=== PATIENT | female | born 1945 | race Caucasian/White ===

== ENCOUNTER → 2018-01-07 | Outpatient (CLI) | payer OTHER, MEDICAID ==
--- NOTE | 2018-01-07 15:40 | RAD ---
History: Right knee pain Study: Right knee three views Findings: Three views of the right knee demonstrates rather severe osteopenia of the bony structures. There is significant narrowing of the medial joint compartment. There is a small joint effusion. No fracture or bony destructive process is identified Impression: . Osteoarthrosis of the medial joint compartment of the right knee. Small knee joint effusion. Reported By:
== END ==
LOC: RAD 10:37
PROVIDERS: ATTEND Internal Medicine
DX: M25.561 Pain in right knee (principal); M17.11 Unilateral primary osteoarthritis, right knee; M25.461 Effusion, right knee
CPT/HCPCS: 73560

== ENCOUNTER → 2018-02-28 | Outpatient (CLI) | payer OTHER, MEDICAID ==
--- NOTE | 2018-02-28 14:37 | CT ---
HISTORY: Acute left-sided weakness Study: CT head without contrast Comparison: None Technique: Axial noncontrast images with coronal and sagittal reformats. Dose reduction procedures we re used with mA/kv adjusted for body size Findings: The ventricles, cortical sulci, and other CSF spaces are enlarged consistent with generalized atrophy . There is a large area of encephalomalacia in the distribution of the left middle cerebral artery co nsistent with an old left MCA infarct. Old lacunar infarcts are present in the basal ganglia bilatera lly. There is no definite evidence for recent CVA, hemorrhage, mass lesion, or extra-axial fluid zak ection. There is complete opacification of the left maxillary sinus likely inflammatory in origin. If acute CVA or extension of the patient's old CVA is a strong clinical consideration MRI with diffusio n imaging is recommended for further evaluation. 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
== END | disposition home or self-care (01) ==
LOC: RAD 13:36
PROVIDERS: ATTEND Internal Medicine
DX: R53.1 Weakness (principal); R41.0 Disorientation, unspecified
CPT/HCPCS: 70450

== ENCOUNTER 2018-10-31 21:02 | Inpatient (IN) ==
--- NOTE | 2018-10-31 22:03 | DR.EXTPAIN ---
HPI Time seen Time Seen by Provider: 10/31/18 21:20 PCP Primary Care Physician: adolph HPI Comment HPI Comment: HISTORY BELOW. DEMENTIA WITH CHALLENGE OBTAINING HISTORY. FAMILY WITH PATIENT AND HELPFUL. Complaint/Symptoms Chief Complaint Doctor Comments: CHEST PAIN. Chief Complaint:: bethany from [facility] called pt choked today and had the abd thrust done she c/o pain in her ribs we did a rib series but she's still complaining of pain. pt denies any pain while palpating rt ribs pt said "that smarted a little" Nurses notes reviewed Nurses Notes Review: Yes Source History Provided: Patient, Family Member and [facility] Mode of arrival Mode of Arrival: Stretcher Timing Onset of Chief Complaint: 10/31/18 Context History of: Arthritis Associated signs and symptoms Associated Signs and Symptoms: Pain, Abdominal Pain and Other (CHEST PAIN.) PMH PMH Past Medical History: Yes Past Medical History: Anxiety, Arthritis, COPD, Coronary Artery Disease, Dementia, Depression, Diabetes, Dyslipidemia, GERD, Hypertension, Hypothyroidism and Seizures Past Surgical History: No (Unknown) Family History History of Family Medical Conditions: No Social History Does any household member use tobacco: No Alcohol Use: None Do you use any recreational Drugs:: No Lives Where: [facility] infectious screening In the last 2 months have you had wt loss of >10#?: NO Have you had fever, night sweats or hemotysis?: No Have you traveled outside the country in the last 6 months?: No Isolation: Standard ROS Review of Systems Constitutional: Weakness and Fatigue Eyes: Tearing; negative Eye Pain and Discharge ENTM: No Symptoms Reported Respiratoy: Short of Breath Cardiovascular: Chest Pain Gastrointestinal/Abdominal: Abdominal Pain Genitourinary: No Symptoms Reported Neurological: Tremors ([facility] PATIENT.) and Weakness Musculoskeletal: No Symptoms Reported, Chest wall and Rib(s) Integumentary: No Symptoms Reported Hematologic/Lymphatic: Easy Bleeding and Easy Bruising Endocrine: No Symptoms Reported Psychiatric: No Symptoms Reported All Other Systems: Reviewed and Negative Unable to Obtain Due To: Dementia PE Vital Signs Vitals: Temperature 97.6 F Pulse Rate [Left Brachial] 60 Pulse Rate 62 Respiratory Rate 20 Blood Pressure [Right Arm] 116/60 Blood Pressure [Left Arm] 126/57 Blood Pressure 114/55 O2 Sat by Pulse Oximetry 94 General Limitations: No Limitations General Appearance: Alert and In No Apparent Distress Head Head Exam: Normal Inspection Eyes Eye exam: Normal Appearance and PERRL; negative Scleral Icterus and Conjunctival Injection ENT ENT Exam: Normal Exam Neck Neck Exam: Normal Inspection Chest Chest Inspection: Normal Inspection Respiratory Respiratory Exam: Normal Lung Sounds Bilat Respiratory Exam: Bilateral: Rhonchi and Lower: Rhonchi Cardiovascular Cardiovascular Exam: Regular Rate and Normal Rhythm Abdominal Exam Abdominal Exam: Normal Bowel Sounds, Soft and Tenderness Abdominal Tenderness: LUQ, Epigastrium and Moderate Extremities Extremities Exam: Normal Inspection Back Back Exam: Normal Inspection Neurological Neurological Exam: Alert and Oriented X3 (DEMENTIA.); negative Motor Sensory Deficit Psychiatric Psychiatric Exam: Normal Affect Skin Skin Exam: Warm, Dry, Intact and Normal Color MDM Differential Diagnosis Differential Diagnosis: Contusion, Fracture, Sprain and Other (CHEST WALL PAIN, RIB PAIN, [place]) COURSE Treatment Treatment: SEE ORDERS. Consultation Consultation Comments: PATIENT ADMITTED TO DR. PERERA. Education/Counseling Education/Counseling: Patient and Family Educated On: Diagnosis ROR Labs Reviewed Laboratory Results Reviewed?: Yes Result Diagrams: 11/01/18 05:55 11/01/18 05:55 Laboratory: WBC 6.6 X10^3/uL (3.6-10.0) 11/01/18 05:55 RBC 4.19 X10^6/uL (3.5-5.4) 11/01/18 05:55 Hgb 12.1 g/dL (12.0-16.0) 11/01/18 05:55 Hct 36.4 % (36.0-47.0) 11/01/18 05:55 MCV 86.9 fL (80.0-100.0) 11/01/18 05:55 MCH 28.9 pg (27.0-34.0) 11/01/18 05:55 MCHC 33.2 g/dL (33.0-35.0) 11/01/18 05:55 RDW 15.0 % (11.6-16.5) 11/01/18 05:55 Plt Count 120 X10^3/uL (150.0-450.0) L 11/01/18 05:55 MPV 10.4 fL (7.4-11.0) 11/01/18 05:55 Neut % (Auto) 34.3 % (42.0-75.0) L 11/01/18 05:55 Lymph % (Auto) 52.4 % (21.0-51.0) H 11/01/18 05:55 Gaines % (Auto) 9.7 % (0.0-13.0) 11/01/18 05:55 Eos % (Auto) 3.1 % (0.9-2.9) H 11/01/18 05:55 Baso % (Auto) 0.5 % (0.2-1.0) 11/01/18 05:55 Neut # (Auto) 2.3 x10^3/uL (2.2-4.8) 11/01/18 05:55 Lymph # (Auto) 3.5 X10^3/uL (1.3-2.9) H 11/01/18 05:55 Gaines # (Auto) 0.6 x10^3/uL (0.3-0.8) 11/01/18 05:55 Eos # (Auto) 0.2 x10^3/uL (0.0-0.2) 11/01/18 05:55 Baso # (Auto) 0.0 X10^3/uL (0.0-0.1) 11/01/18 05:55 Absolute Nucleated RBC 0.1 /100WBC 11/01/18 05:55 Sodium 146 mmol/L (136-145) H 11/01/18 05:55 Corrected Sodium 147 mmol/L (136-145) H 11/01/18 05:55 Potassium 3.8 mmol/L (3.5-5.1) 11/01/18 05:55 Chloride 110 mmol/L (98-107) H 11/01/18 05:55 Carbon Dioxide 26.7 mmol/L (21-32) 11/01/18 05:55 BUN 35 mg/dL (7-18) H 11/01/18 05:55 Creatinine 0.91 mg/dL (0.55-1.02) 11/01/18 05:55 Est GFR (MDRD) Af Amer > 60 (>60) 11/01/18 05:55 Est GFR (MDRD) Non-Af > 60 (>60) 11/01/18 05:55 Glucose 129 mg/dL (65-99) H 11/01/18 05:55 POC Glucose (mg/dL) 130 mg/dL (65-99) H 11/01/18 05:35 Lactic Acid 2.7 mmol/L (0.4-2.0) H 10/31/18 23:36 Calcium 8.5 mg/dL (8.5-10.1) 11/01/18 05:55 Corrected Calcium 9.8 mg/dL (8.5-10.1) 11/01/18 05:55 Magnesium 1.8 mg/dL (1.7-2.9) 11/01/18 23:36 Total Bilirubin 0.50 mg/dL (0.2-1.0) 11/01/18 05:55 AST 78 Units/L (15-37) H 11/01/18 05:55 ALT 15 Units/L (12-78) 11/01/18 05:55 Alkaline Phosphatase 96 Units/L (46-116) 11/01/18 05:55 Total Protein 5.9 g/dL (6.4-8.2) L 11/01/18 05:55 Albumin 2.4 g/dL (3.4-5.0) L 11/01/18 05:55 Globulin 3.5 g/dL (2.5-4.5) 11/01/18 05:55 Albumin/Globulin Ratio 0.7 Ratio (1.1-2.1) L 11/01/18 05:55 XRAY XRAY Interpreted by: Radiologist XRAY Findings: REPORT DISCUSS WITH PATIENT AND FAMILY. EKG [place]: Normal Rhythm: NSR
--- NOTE | 2018-10-31 22:45 | CT ---
CT chest without contrast Indication: Chest pain after Heimlich Comparison: None Technique: CT images of the chest were obtained without contrast. Automatic exposure control was utilized. Findings: There is chronic compression fracture of the L1 vertebral body. Chronic healed fractures of the anterior right 6th, 7th, and 8th ribs. No acute fracture is identified. With nonobstructing bilateral renal stones. Evaluation of the mediastinum is limited without contrast. No significant pericardial thickening or pericardial effusion. No mediastinal hematoma is observed. The thoracic aorta is grossly unremarkable for technique. Scattered coronary artery calcifications are noted. There are patchy ground-glass opacities throughout both lungs, greatest within the lower lobes. No dense consolidation, pleural effusion, or pneumothorax. The major airways are patent. Impression: Patchy bilateral ground-glass opacities, greatest within the lower lobes, most compatible with multifocal pneumonitis or aspiration. Chronic right-sided rib fractures. No acute osseous abnormality. Reported By:
[2018-10-31] MEDS ORDERED: CLEOCIN 600 MG IV PREMIX 600 MG/50 ML BAG IV ONE (23:44)
[2018-10-31] MEDS ORDERED: CLEOCIN VIAL 600 MG ONE (23:49)
[2018-10-31] MEDS ORDERED: NS 1000 ML 1,000 ML ONE (23:50)
[2018-10-31] MEDS: NS 1000 ML 1,000 ML IV SCH (23:58)
[2018-11-01 00:08] LABS: BASOPHILS % (AUTO) 0.5 % (0.2-1.0); EOSINOPHILS # (AUTO) 0.2 x10^3/uL (0.0-0.2); EOSINOPHILS % (AUTO) 2.5 % (0.9-2.9); HEMOGLOBIN 13.2 g/dL (12.0-16.0); LYMPHOCYTES # (AUTO) 3.5 X10^3/uL (1.3-2.9); LYMPHOCYTES % (AUTO) 45.4 % (21.0-51.0); MEAN CORPUSCULAR HEMOGLOBIN 28.9 pg (27.0-34.0); MEAN CORPUSCULAR VOLUME 87.4 fL (80.0-100.0); MEAN PLATELET VOLUME 10.3 fL (7.4-11.0); MONOCYTES # (AUTO) 0.6 x10^3/uL (0.3-0.8); MONOCYTES % (AUTO) 7.3 % (0.0-13.0); NEUTROPHILS # (AUTO) 3.4 x10^3/uL (2.2-4.8); NEUTROPHILS % (AUTO) 44.3 % (42.0-75.0); PLATELET COUNT 142 X10^3/uL (150.0-450.0); RED BLOOD COUNT 4.58 X10^6/uL (3.5-5.4); WHITE BLOOD COUNT 7.7 X10^3/uL (3.6-10.0)
[2018-11-01 00:19] LABS: ALANINE AMINOTRANSFERASE 16 Units/L (12-78); ALBUMIN 2.7 g/dL (3.4-5.0); ALKALINE PHOSPHATASE 110 Units/L (46-116); ASPARTATE AMINO TRANSFERASE 83 Units/L (15-37); BLOOD UREA NITROGEN 32 mg/dL (7-18); CARBON DIOXIDE 26.8 mmol/L (21-32); CHLORIDE 107 mmol/L (98-107); COR NA(FOR HYPERGLY) 146 mmol/L (136-145); CREATININE 1.08 mg/dL (0.55-1.02); SODIUM 144 mmol/L (136-145); TOTAL PROTEIN 6.5 g/dL (6.4-8.2); eGFR NON BLACK RACES 53 (>60)
[2018-11-01 00:26] LABS: LACTIC ACID 2.7 mmol/L (0.4-2.0)
[2018-11-01] MEDS ORDERED: POTASSIUM CHL 40 MEQ/NS 0.45% 500 ML IV PRN (01:14)
[2018-11-01] MEDS ORDERED: MICRO K EXTEN CAP 10 MEQ PO PRN (01:14)
[2018-11-01] MEDS ORDERED: K-DUR TAB 20 MEQ PO PRN (01:14)
[2018-11-01] MEDS ORDERED: KLOR-CON PO PRN (01:14)
[2018-11-01] MEDS ORDERED: POTASSIUM CHL 60 MEQ/NS 0.45% 500 ML IV PRN (01:14)
[2018-11-01] MEDS ORDERED: K-RIDER 10 MEQ/NS 100 ML 10 MEQ/100 ML BAG IV PRN (01:14)
[2018-11-01] MEDS ORDERED: POTASSIUM CHLORIDE LIQ 20 MEQ UDC PO PRN (01:14)
[2018-11-01] MEDS ORDERED: MAGNESIUM SULFATE 1 GRAM/100 mL PREMIX 1 GM/100 ML BAG IV PRN (01:14)
[2018-11-01] MEDS ORDERED: PATIENT'S HOME MEDICATION (Oxycodone-Acetaminophen [Percocet] 1 TAB) PO PRN (01:29)
[2018-11-01] MEDS ORDERED: PATIENT'S HOME MEDICATION (Fluticasone-Salmeterol 1 INH) IN SCH (01:29)
[2018-11-01] MEDS: SINEMET (PLAIN) 25/250 MG PO SCH ×3 (05:29→21:01)
[2018-11-01] MEDS: CLEOCIN 600 MG IV PREMIX 600 MG/50 ML BAG IV SCH ×3 (05:29→21:01)
[2018-11-01] MEDS: NEURONTIN TAB 600 MG PO SCH ×3 (05:38→21:01)
[2018-11-01] MEDS: MERREM VIAL 500 MG in NS 100 ML IV + SPIKE MINIBAG* 100 ML IV SCH ×3 (05:41→21:36)
[2018-11-01 05:54] VITALS: BMI 31.9
[2018-11-01] MEDS: SYNTHROID 75 mcg TAB PO SCH (06:00)
[2018-11-01] MEDS ORDERED: INSULIN ASPART SUBCUT SCH ×2 (06:30)
[2018-11-01 06:58] LABS: ALANINE AMINOTRANSFERASE 15 Units/L (12-78); ALBUMIN 2.4 g/dL (3.4-5.0); ALKALINE PHOSPHATASE 96 Units/L (46-116); ASPARTATE AMINO TRANSFERASE 78 Units/L (15-37); BLOOD UREA NITROGEN 35 mg/dL (7-18); CALCIUM 8.5 mg/dL (8.5-10.1); CARBON DIOXIDE 26.7 mmol/L (21-32); CHLORIDE 110 mmol/L (98-107); COR CA(FOR HYPOALB) 9.8 mg/dL (8.5-10.1); COR NA(FOR HYPERGLY) 147 mmol/L (136-145); CREATININE 0.91 mg/dL (0.55-1.02); SODIUM 146 mmol/L (136-145); TOTAL PROTEIN 5.9 g/dL (6.4-8.2); eGFR NON BLACK RACES > 60 (>60)
[2018-11-01 07:21] LABS: BASOPHILS % (AUTO) 0.5 % (0.2-1.0); EOSINOPHILS # (AUTO) 0.2 x10^3/uL (0.0-0.2); EOSINOPHILS % (AUTO) 3.1 % (0.9-2.9); HEMATOCRIT 36.4 % (36.0-47.0); HEMOGLOBIN 12.1 g/dL (12.0-16.0); LYMPHOCYTES # (AUTO) 3.5 X10^3/uL (1.3-2.9); LYMPHOCYTES % (AUTO) 52.4 % (21.0-51.0); MEAN CORPUSCULAR HEMOGLOBIN 28.9 pg (27.0-34.0); MEAN CORPUSCULAR HGB CONC 33.2 g/dL (33.0-35.0); MEAN CORPUSCULAR VOLUME 86.9 fL (80.0-100.0); MEAN PLATELET VOLUME 10.4 fL (7.4-11.0); MONOCYTES # (AUTO) 0.6 x10^3/uL (0.3-0.8); MONOCYTES % (AUTO) 9.7 % (0.0-13.0); NEUTROPHILS # (AUTO) 2.3 x10^3/uL (2.2-4.8); NEUTROPHILS % (AUTO) 34.3 % (42.0-75.0); PLATELET COUNT 120 X10^3/uL (150.0-450.0); RED BLOOD COUNT 4.19 X10^6/uL (3.5-5.4); WHITE BLOOD COUNT 6.6 X10^3/uL (3.6-10.0)
[2018-11-01] MEDS ORDERED: ZOLOFT PO ONE (08:29)
[2018-11-01] MEDS ORDERED: DEPAKOTE D.R. TAB PO ONE ×2 (08:30→19:43)
[2018-11-01] MEDS ORDERED: PULMICORT NEB TX 0.5 MG NEB SCH (09:00)
[2018-11-01] MEDS ORDERED: PROVENTIL NEB TX 0.083% 2.5MG/ 3ML NEB SCH (09:00)
[2018-11-01] MEDS ORDERED: [UNRECOGNIZED DRUG - OTHER] PO SCH (09:00)
[2018-11-01] MEDS: DUONEB 0.5 MG/3 MG NEB SCH ×4 (09:09→21:43)
[2018-11-01] MEDS: PULMICORT NEB TX 0.5 MG NEB SCH ×2 (09:09→21:43)
[2018-11-01] MEDS: ZOLOFT PO SCH (09:16)
[2018-11-01] MEDS: KLONOPIN TAB 0.5 MG PO SCH ×2 (09:16→20:01)
[2018-11-01] MEDS: PriLOSEC PO SCH (09:16)
[2018-11-01] MEDS: DEPAKOTE D.R. TAB PO SCH ×2 (09:17→20:02)
[2018-11-01] MEDS: INDERAL TAB 10 MG PO SCH ×2 (09:17→20:03)
[2018-11-01] MEDS: DETROL LA 2 MG CAP EXT REL PO SCH (09:17)
[2018-11-01] MEDS: MOBIC TAB 15 MG PO SCH (09:17)
[2018-11-01] MEDS ORDERED: BUTT CREAM (COMPOUND) TOP PRN (10:40)
[2018-11-01] MEDS: HumaLOG SC SCH ×2 (12:55→16:53)
[2018-11-01] MEDS: PATIENT'S HOME MEDICATION (Memantine [Namenda Xr] 28 MG) PO SCH (14:27)
[2018-11-01] MEDS: NS 1000 ML 1,000 ML IV SCH ×2 (14:28→21:36)
[2018-11-01] MEDS: ZOCOR TAB 40 MG PO SCH (20:01)
[2018-11-01] MEDS: ARICEPT TAB 10 MG PO SCH (20:01)
[2018-11-01] MEDS: XALATAN OP SCH (20:02)
[2018-11-01] MEDS: TRICOR TAB 145 MG PO SCH (20:02)
[2018-11-01] MEDS ORDERED: NS 1000 ML 1,000 ML ONE (21:34)
[2018-11-02] MEDS: NS 1000 ML 1,000 ML IV SCH ×4 (01:10→18:07)
[2018-11-02] MEDS: CLEOCIN 600 MG IV PREMIX 600 MG/50 ML BAG IV SCH ×3 (05:03→21:16)
[2018-11-02] MEDS: HumaLOG SC SCH ×3 (05:43→18:06)
[2018-11-02] MEDS: SINEMET (PLAIN) 25/250 MG PO SCH ×3 (05:43→21:19)
[2018-11-02] MEDS: NEURONTIN TAB 600 MG PO SCH ×3 (05:43→22:15)
[2018-11-02] MEDS: MERREM VIAL 500 MG in NS 100 ML IV + SPIKE MINIBAG* 100 ML IV SCH ×3 (05:43→21:14)
[2018-11-02] MEDS: SYNTHROID 75 mcg TAB PO SCH (06:07)
[2018-11-02 06:08] LABS: BASOPHILS % (AUTO) 0.7 % (0.2-1.0); EOSINOPHILS # (AUTO) 0.2 x10^3/uL (0.0-0.2); EOSINOPHILS % (AUTO) 4.1 % (0.9-2.9); HEMATOCRIT 36.2 % (36.0-47.0); HEMOGLOBIN 11.9 g/dL (12.0-16.0); LYMPHOCYTES # (AUTO) 2.3 X10^3/uL (1.3-2.9); LYMPHOCYTES % (AUTO) 44.3 % (21.0-51.0); MEAN CORPUSCULAR HEMOGLOBIN 28.7 pg (27.0-34.0); MEAN CORPUSCULAR HGB CONC 32.9 g/dL (33.0-35.0); MEAN CORPUSCULAR VOLUME 87.3 fL (80.0-100.0); MEAN PLATELET VOLUME 10.3 fL (7.4-11.0); MONOCYTES # (AUTO) 0.6 x10^3/uL (0.3-0.8); MONOCYTES % (AUTO) 10.7 % (0.0-13.0); NEUTROPHILS # (AUTO) 2.1 x10^3/uL (2.2-4.8); NEUTROPHILS % (AUTO) 40.2 % (42.0-75.0); PLATELET COUNT 114 X10^3/uL (150.0-450.0); RED BLOOD COUNT 4.14 X10^6/uL (3.5-5.4); RED CELL DISTRIBUTION WIDTH 15.5 % (11.6-16.5); WHITE BLOOD COUNT 5.2 X10^3/uL (3.6-10.0)
[2018-11-02 06:43] LABS: ALANINE AMINOTRANSFERASE 11 Units/L (12-78); ALBUMIN 2.2 g/dL (3.4-5.0); ALKALINE PHOSPHATASE 92 Units/L (46-116); ASPARTATE AMINO TRANSFERASE 67 Units/L (15-37); BLOOD UREA NITROGEN 24 mg/dL (7-18); CALCIUM 8.1 mg/dL (8.5-10.1); CARBON DIOXIDE 27.4 mmol/L (21-32); CHLORIDE 109 mmol/L (98-107); COR CA(FOR HYPOALB) 9.5 mg/dL (8.5-10.1); COR NA(FOR HYPERGLY) 143 mmol/L (136-145); CREATININE 0.74 mg/dL (0.55-1.02); SODIUM 143 mmol/L (136-145); TOTAL PROTEIN 5.6 g/dL (6.4-8.2); eGFR NON BLACK RACES > 60 (>60)
[2018-11-02] MEDS ORDERED: ZOLOFT PO ONE (08:04)
[2018-11-02] MEDS ORDERED: DEPAKOTE D.R. TAB PO ONE ×2 (08:05→21:01)
[2018-11-02] MEDS: DETROL LA 2 MG CAP EXT REL PO SCH (08:14)
[2018-11-02] MEDS: PriLOSEC PO SCH (08:14)
[2018-11-02] MEDS: ZOLOFT PO SCH (08:14)
[2018-11-02] MEDS: DEPAKOTE D.R. TAB PO SCH ×2 (08:14→21:18)
[2018-11-02] MEDS: MOBIC TAB 15 MG PO SCH (08:14)
[2018-11-02] MEDS: INDERAL TAB 10 MG PO SCH ×2 (08:15→21:23)
[2018-11-02] MEDS: KLONOPIN TAB 0.5 MG PO SCH ×2 (08:15→21:19)
[2018-11-02] MEDS: PATIENT'S HOME MEDICATION (Memantine [Namenda Xr] 28 MG) PO SCH (08:18)
[2018-11-02] MEDS: ROBITUSSIN DM PO PRN (08:24)
[2018-11-02] MEDS: DUONEB 0.5 MG/3 MG NEB SCH ×4 (09:34→21:30)
[2018-11-02] MEDS: PULMICORT NEB TX 0.5 MG NEB SCH ×2 (09:34→21:29)
[2018-11-02] MEDS ORDERED: NS 1000 ML 1,000 ML ONE (13:49)
[2018-11-02] MEDS: XALATAN OP SCH (21:16)
[2018-11-02] MEDS: ZOCOR TAB 40 MG PO SCH (21:19)
[2018-11-02] MEDS: TRICOR TAB 145 MG PO SCH (21:19)
[2018-11-02] MEDS: ARICEPT TAB 10 MG PO SCH (21:22)
[2018-11-03] MEDS: MERREM VIAL 500 MG in NS 100 ML IV + SPIKE MINIBAG* 100 ML IV SCH ×3 (05:00→22:00)
--- NOTE | 2018-11-03 05:33 | RAD ---
Examination: AP chest History: Cough Comparison 10/31/2018 Findings: Continued normal heart size. The pulmonary vasculature remains prominent with slight interstitial increase. No focal consolidation, airspace disease or pleural fluid. Impression: No definite pneumonia. Mild pulmonary vascular congestion, accentuated by nonstandard technical factors. Basal pneumonia, suggested on recent CT examination, not definitely identified. Reported By:
[2018-11-03 05:46] LABS: BASOPHILS % (AUTO) 0.8 % (0.2-1.0); EOSINOPHILS # (AUTO) 0.2 x10^3/uL (0.0-0.2); EOSINOPHILS % (AUTO) 4.4 % (0.9-2.9); HEMATOCRIT 36.2 % (36.0-47.0); LYMPHOCYTES # (AUTO) 2.3 X10^3/uL (1.3-2.9); LYMPHOCYTES % (AUTO) 53.9 % (21.0-51.0); MEAN CORPUSCULAR HEMOGLOBIN 28.8 pg (27.0-34.0); MEAN CORPUSCULAR HGB CONC 33.1 g/dL (33.0-35.0); MEAN CORPUSCULAR VOLUME 86.8 fL (80.0-100.0); MEAN PLATELET VOLUME 10.1 fL (7.4-11.0); MONOCYTES # (AUTO) 0.4 x10^3/uL (0.3-0.8); MONOCYTES % (AUTO) 9.7 % (0.0-13.0); NEUTROPHILS # (AUTO) 1.3 x10^3/uL (2.2-4.8); NEUTROPHILS % (AUTO) 31.2 % (42.0-75.0); PLATELET COUNT 116 X10^3/uL (150.0-450.0); RED BLOOD COUNT 4.16 X10^6/uL (3.5-5.4); RED CELL DISTRIBUTION WIDTH 15.1 % (11.6-16.5); WHITE BLOOD COUNT 4.3 X10^3/uL (3.6-10.0)
[2018-11-03] MEDS: CLEOCIN 600 MG IV PREMIX 600 MG/50 ML BAG IV SCH ×3 (05:57→21:13)
[2018-11-03] MEDS: SINEMET (PLAIN) 25/250 MG PO SCH ×3 (05:58→21:13)
[2018-11-03] MEDS: NEURONTIN TAB 600 MG PO SCH ×3 (05:58→21:13)
[2018-11-03] MEDS: HumaLOG SC SCH ×3 (05:59→16:35)
[2018-11-03 06:13] LABS: ALANINE AMINOTRANSFERASE 12 Units/L (12-78); ALBUMIN 2.3 g/dL (3.4-5.0); ALKALINE PHOSPHATASE 88 Units/L (46-116); ASPARTATE AMINO TRANSFERASE 64 Units/L (15-37); BLOOD UREA NITROGEN 16 mg/dL (7-18); CALCIUM 8.5 mg/dL (8.5-10.1); CARBON DIOXIDE 27.1 mmol/L (21-32); CHLORIDE 112 mmol/L (98-107); COR CA(FOR HYPOALB) 9.9 mg/dL (8.5-10.1); COR NA(FOR HYPERGLY) 147 mmol/L (136-145); SODIUM 146 mmol/L (136-145); TOTAL PROTEIN 5.7 g/dL (6.4-8.2); eGFR NON BLACK RACES > 60 (>60)
[2018-11-03] MEDS ORDERED: ZOLOFT PO ONE (08:24)
[2018-11-03] MEDS ORDERED: DEPAKOTE D.R. TAB PO ONE ×2 (08:24→20:01)
[2018-11-03] MEDS: MOBIC TAB 15 MG PO SCH (08:27)
[2018-11-03] MEDS: ROBITUSSIN DM PO PRN (08:27)
[2018-11-03] MEDS: PriLOSEC PO SCH (08:27)
[2018-11-03] MEDS: DETROL LA 2 MG CAP EXT REL PO SCH (08:28)
[2018-11-03] MEDS: KLONOPIN TAB 0.5 MG PO SCH ×2 (08:28→20:38)
[2018-11-03] MEDS: NS 1000 ML 1,000 ML IV SCH ×2 (08:29→23:12)
[2018-11-03] MEDS: DEPAKOTE D.R. TAB PO SCH ×2 (08:29→20:49)
[2018-11-03] MEDS: SYNTHROID 75 mcg TAB PO SCH (08:29)
[2018-11-03] MEDS: ZOLOFT PO SCH (08:29)
[2018-11-03] MEDS: PATIENT'S HOME MEDICATION (Memantine [Namenda Xr] 28 MG) PO SCH (08:30)
[2018-11-03] MEDS: INDERAL TAB 10 MG PO SCH ×2 (08:30→20:49)
[2018-11-03] MEDS: DUONEB 0.5 MG/3 MG NEB SCH ×4 (08:58→21:06)
[2018-11-03] MEDS: PULMICORT NEB TX 0.5 MG NEB SCH ×2 (08:59→21:06)
[2018-11-03] MEDS ORDERED: NS 1000 ML 1,000 ML ONE (14:45)
[2018-11-03] MEDS: TRICOR TAB 145 MG PO SCH (20:38)
[2018-11-03] MEDS: ZOCOR TAB 40 MG PO SCH (20:39)
[2018-11-03] MEDS: XALATAN OP SCH (20:49)
[2018-11-03] MEDS: ARICEPT TAB 10 MG PO SCH (20:55)
[2018-11-04] MEDS: MERREM VIAL 500 MG in NS 100 ML IV + SPIKE MINIBAG* 100 ML IV SCH (05:03)
[2018-11-04] MEDS: SINEMET (PLAIN) 25/250 MG PO SCH (05:04)
[2018-11-04] MEDS: NEURONTIN TAB 600 MG PO SCH (05:04)
[2018-11-04 05:21] LABS: BASOPHILS % (AUTO) 0.7 % (0.2-1.0); EOSINOPHILS # (AUTO) 0.2 x10^3/uL (0.0-0.2); EOSINOPHILS % (AUTO) 4.6 % (0.9-2.9); HEMATOCRIT 36.9 % (36.0-47.0); HEMOGLOBIN 12.1 g/dL (12.0-16.0); LYMPHOCYTES # (AUTO) 2.2 X10^3/uL (1.3-2.9); LYMPHOCYTES % (AUTO) 51.4 % (21.0-51.0); MEAN CORPUSCULAR HEMOGLOBIN 28.6 pg (27.0-34.0); MEAN CORPUSCULAR HGB CONC 32.8 g/dL (33.0-35.0); MEAN CORPUSCULAR VOLUME 87.3 fL (80.0-100.0); MEAN PLATELET VOLUME 10.2 fL (7.4-11.0); MONOCYTES # (AUTO) 0.5 x10^3/uL (0.3-0.8); MONOCYTES % (AUTO) 11.5 % (0.0-13.0); NEUTROPHILS # (AUTO) 1.4 x10^3/uL (2.2-4.8); NEUTROPHILS % (AUTO) 31.8 % (42.0-75.0); PLATELET COUNT 121 X10^3/uL (150.0-450.0); RED BLOOD COUNT 4.23 X10^6/uL (3.5-5.4); RED CELL DISTRIBUTION WIDTH 15.1 % (11.6-16.5); WHITE BLOOD COUNT 4.3 X10^3/uL (3.6-10.0)
[2018-11-04] MEDS: HumaLOG SC SCH (05:30)
[2018-11-04] MEDS: CLEOCIN 600 MG IV PREMIX 600 MG/50 ML BAG IV SCH (05:31)
[2018-11-04 05:52] LABS: ALANINE AMINOTRANSFERASE 13 Units/L (12-78); ALBUMIN 2.3 g/dL (3.4-5.0); ALKALINE PHOSPHATASE 88 Units/L (46-116); ASPARTATE AMINO TRANSFERASE 62 Units/L (15-37); BLOOD UREA NITROGEN 14 mg/dL (7-18); CALCIUM 8.4 mg/dL (8.5-10.1); CARBON DIOXIDE 26.6 mmol/L (21-32); CHLORIDE 111 mmol/L (98-107); COR CA(FOR HYPOALB) 9.8 mg/dL (8.5-10.1); COR NA(FOR HYPERGLY) 147 mmol/L (136-145); CREATININE 0.69 mg/dL (0.55-1.02); SODIUM 146 mmol/L (136-145); TOTAL PROTEIN 5.6 g/dL (6.4-8.2); eGFR NON BLACK RACES > 60 (>60)
[2018-11-04] MEDS: SYNTHROID 75 mcg TAB PO SCH (06:04)
--- NOTE | 2018-11-04 07:29 | RAD ---
HISTORY: Shortness of breath Study: Chest AP portable Comparison: 11/03/2018 Findings: The heart is normal in size. No congestive heart failure is noted. No alveolar infiltrates or pleural effusions are identified. Mild interstitial lung changes remain in the right lung base. The bony thorax is unremarkable. IMPRESSION: No acute infiltrates Mild interstitial lung changes remain Reported By:
[2018-11-04] MEDS ORDERED: DEPAKOTE D.R. TAB PO ONE (08:27)
[2018-11-04] MEDS ORDERED: ZOLOFT PO ONE (08:27)
--- NOTE | 2018-11-04 08:46 | DR.H&P ---
H&P - History & Physical for Day of: H&P Date: 11/01/18 - Chief Complaint Chief Complaint: chest pain, sob, rib pain - History of Present Illness History of Present Illness: [facility] 73 [facility] She presented to the ER with complaints of chest pain and rib pain. skilled nursing staff reported that patient was choking today and they had to perform an abdominal thrust. Afterwards, patient reported rib pain. She also reports shortness of breath. Patient has a past medical history of Anxiety, Arthritis, COPD, Coronary Artery Disease, Dementia, Depression, Diabetes, Dyslipidemia, GERD, Hypertension, Hypothyroidism and Seizures. On arrival, vitals were 98.2-70-20-96%-114/55. Labs were obtained. Abnormal lab values include the following: PLT COUNT 142, BUN 32, CREATININE 1.08, GLUCOSE 201, LACTIC ACID 2.7, AST 83, ALBUMIN 2.7. AN OUTPATIENT CHEST XRAY WAS OBTAINED AND REVEALED: Cortical regularity and buckling involving bilateral posterior 7th ribs needs clinical correlation for point tenderness to exclude nondisplaced acute fractures. A CHEST CT WAS OBTAINED AND REVEALED: Patchy bilateral ground- glass opacities, greatest within the lower lobes, most compatible with multifocal pneumonitis or aspiration. Chronic right-sided rib fractures. No acute osseous abnormality. She was admitted for further evaluation and treatment of aspiration pneumonia. She was given clocin 600mg iv x 1 dose in the ER. She was started on meropenem 500mg iv q8h and clindamycin 600mg iv q8h as well as normal saline at 50ml/hr, respiratory treatments, and supplemental oxygen. We plan to follow up with AM labs and chest xray and continue to monitor. - Past Medical History Past Medical History: Coronary Artery Disease, Hypertension, Dyslipidemia, Diabetes, Dementia, Depression, Anxiety, Hypothyroidism, Seizures, COPD, GERD, Arthritis - Past Surgical History Surgical History: Unknown - Social History Does patient currently use any type of tobacco product: No Have you used tobacco products in the last 12 months: No Type of Tobacco Use: None Does any household member use tobacco: No Alcohol Use: None Drug Use: None - Medications Home Medications: No Known Drug Allergies Allergy (Verified 03/05/18 23:45) CONTINUE taking the following medications carbidopa-levodopa [Sinemet] 1 tab PO TID 10/31/18 [History] clonazepam [Klonopin] 0.5 mg PO BID 10/31/18 [History] divalproex [Depakote] 500 mg PO BID 10/31/18 [History] donepezil [Aricept] 10 mg PO QHS 10/31/18 [History] fenofibrate nanocrystallized 145 mg PO HS 10/31/18 [History] fluticasone-salmeterol [Advair Diskus] 1 inh INHALATION Q12H 10/31/18 [History] gabapentin [Neurontin] 600 mg PO TID 10/31/18 [History] insulin aspart U-100 [Novolog U-100 Insulin aspart] 7 unit SUBCUT ACHS 10/31/18 [History] latanoprost 1 drp OPHTHALMIC (EYE) QDAY 10/31/18 [History] levothyroxine [Synthroid] 75 mcg PO QDAY 10/31/18 [History] meloxicam [Mobic] 7.5 mg PO QDAY 10/31/18 [History] memantine [Namenda XR] 28 mg PO QDAY 10/31/18 [History] iv-njsyygs-efz-iron fm-FA-vitK [Multi For Her] 1 tab PO QDAY 10/31/18 [History] omeprazole magnesium [Prilosec OTC] 20 mg PO QDAY 10/31/18 [History] oxycodone-acetaminophen [Percocet] 1 tab PO Q6H PRN 10/31/18 [History] propranolol 10 mg PO BID 10/31/18 [History] quetiapine [Seroquel] 25 mg PO HS 10/31/18 [History] sertraline [Zoloft] 100 mg PO QDAY 10/31/18 [History] simvastatin 40 mg PO QHS 10/31/18 [History] tolterodine [Detrol LA] 2 mg PO QDAY 10/31/18 [History] - Review of Systems Constitutional: No Symptoms Reported Eyes: No Symptoms Reported ENT: No Symptoms Reported Respiratory: Shortness of Breath Cardiovascular: Chest Pain Gastrointestinal: No Symptoms Reported Genitourinary: No Symptoms Reported Musculoskeletal: Other (rib pain) Skin: No Symptoms Reported Neurological: No Symptoms Reported - Physical Exam Vital Signs: Temperature 97.8 F Pulse Rate [Left Brachial] 52 Pulse Rate 79 Respiratory Rate 20 Blood Pressure [Right Arm] 130/58 Blood Pressure [Left Arm] 132/58 Blood Pressure 114/55 O2 Sat by Pulse Oximetry 96 Oriented: Person Eyes: Normal Ear: Normal Nose: Normal Throat: Normal Respiratory: Diminished Throughout Cardiovascular: Normal. negative: S3, S4, Murmur, Edema : Normal Auscultation: Bowel Sounds: Normal Palpation: Normal Tenderness: Normal Skin: Normal Musculoskeletal: Right (rib pain) - Allergies Allergies/Adverse Reactions: Allergies Allergy/AdvReac Type Severity Reaction Status Date / Time No Known Drug Allergies Allergy Verified 03/05/18 23:45
[2018-11-04] MEDS: DEPAKOTE D.R. TAB PO SCH (08:54)
[2018-11-04] MEDS: INDERAL TAB 10 MG PO SCH (08:54)
[2018-11-04] MEDS: KLONOPIN TAB 0.5 MG PO SCH (08:54)
[2018-11-04] MEDS: MOBIC TAB 15 MG PO SCH (08:54)
[2018-11-04] MEDS: PriLOSEC PO SCH (08:55)
[2018-11-04] MEDS: ZOLOFT PO SCH (08:55)
[2018-11-04] MEDS: DETROL LA 2 MG CAP EXT REL PO SCH (08:55)
[2018-11-04] MEDS: PULMICORT NEB TX 0.5 MG NEB SCH (09:23)
[2018-11-04] MEDS: DUONEB 0.5 MG/3 MG NEB SCH (09:23)
[2018-11-04] MEDS: PATIENT'S HOME MEDICATION (Memantine [Namenda Xr] 28 MG) PO SCH (09:45)
[2018-11-04 10:04] VITALS: BP 131/58
== END 2018-11-04 11:00 | DRG 178 ==
LOC: ER 21:03 → MED/SURG 11-01 00:52
PROVIDERS: ADMIT Internal Medicine; ATTEND Internal Medicine
DX: M62.81 Muscle weakness (generalized); J44.9 Chronic obstructive pulmonary disease, unspecified; F32.89 Other specified depressive episodes; M13.89 Other specified arthritis, multiple sites; R13.12 Dysphagia, oropharyngeal phase; I10 Essential (primary) hypertension; F41.8 Other specified anxiety disorders; R07.89 Other chest pain; I25.10 Atherosclerotic heart disease of native coronary artery without angina pectoris; G40.89 Other seizures; E11.65 Type 2 diabetes mellitus with hyperglycemia; E78.2 Mixed hyperlipidemia; K21.9 Gastro-esophageal reflux disease without esophagitis; R06.02 Shortness of breath; J69.0 Pneumonitis due to inhalation of food and vomit; E03.8 Other specified hypothyroidism
CPT/HCPCS: 36415; 71010; 71045; 71111; 71250; 80053; 83605; 83735; 85025; 87040; 92610; 94640; 94760; 96365; 96374; 97163; 97166; 99282; 99284; A4222; J1817; J2185; J7030; J7050; J7620; J7626; S0077

== ENCOUNTER 2019-03-14 14:29 | Inpatient (IN) ==
[2019-03-14 15:12] LABS: ALANINE AMINOTRANSFERASE 11 Units/L (12-78); ALBUMIN 2.7 g/dL (3.4-5.0); ALKALINE PHOSPHATASE 109 Units/L (46-116); ASPARTATE AMINO TRANSFERASE 57 Units/L (15-37); BLOOD UREA NITROGEN 17 mg/dL (7-18); CALCIUM 9.1 mg/dL (8.5-10.1); CHLORIDE 106 mmol/L (98-107); COR CA(FOR HYPOALB) 10.1 mg/dL (8.5-10.1); COR NA(FOR HYPERGLY) 146 mmol/L (136-145); CREATININE 0.85 mg/dL (0.55-1.02); SODIUM 145 mmol/L (136-145); TOTAL PROTEIN 7.4 g/dL (6.4-8.2); eGFR NON BLACK RACES > 60 (>60)
[2019-03-14 15:42] LABS: BASOPHILS % (AUTO) 0.7 % (0.2-1.0); EOSINOPHILS # (AUTO) 0.2 x10^3/uL (0.0-0.2); HEMATOCRIT 42.5 % (36.0-47.0); HEMOGLOBIN 13.6 g/dL (12.0-16.0); LYMPHOCYTES # (AUTO) 2.3 X10^3/uL (1.3-2.9); LYMPHOCYTES % (AUTO) 51.5 % (21.0-51.0); MEAN CORPUSCULAR HEMOGLOBIN 28.3 pg (27.0-34.0); MEAN CORPUSCULAR VOLUME 88.4 fL (80.0-100.0); MEAN PLATELET VOLUME 9.3 fL (7.4-11.0); MONOCYTES # (AUTO) 0.5 x10^3/uL (0.3-0.8); MONOCYTES % (AUTO) 10.3 % (0.0-13.0); NEUTROPHILS # (AUTO) 1.5 x10^3/uL (2.2-4.8); NEUTROPHILS % (AUTO) 33.5 % (42.0-75.0); PLATELET COUNT 125 X10^3/uL (150.0-450.0); RED BLOOD COUNT 4.81 X10^6/uL (3.5-5.4); RED CELL DISTRIBUTION WIDTH 16.4 % (11.6-16.5); WHITE BLOOD COUNT 4.5 X10^3/uL (3.6-10.0)
--- NOTE | 2019-03-14 16:52 | DR.GENAD ---
HPI Time Seen Time Seen by Provider: 03/14/19 14:48 PCP Primary Care Physician: TREVER Complaint/Symptoms Chief Complaint Doctors Comments: Patient referred to the ED for evaluation by Dr Angel of a rectocele or fistula per his request. Patient is alert in no distress Chief Complaint:: TON STAFF STATE THAT PT. HAS A RECTOCELE OR FISTULA AND THAT DR. MALDONADO WANTED HER SENT TO THE ER FOR EVALUATION. STAFF STATES IT HAS BEEN THERE ABOUT 1 WEEK. Source History Provided: [facility] Mode of Arrival Mode of Arrival: Stretcher Timing Onset of Chief Complaint: 03/07/19 PMH PMH Past Medical History: Yes Past Medical History: Anxiety, Arthritis, COPD, Coronary Artery Disease, D ementia, Depression, Diabetes, Dyslipidemia, GERD, Hypertension, Hypothyroidism and Seizures Past Surgical History: Yes Surgical History: Unknown Family History History of Family Medical Conditions: No Social History Does any household member use tobacco: No Alcohol Use: None Do you use any recreational Drugs:: No Lives Where: [facility] infectious screening In the last 2 months have you had wt loss of >10#?: NO Have you had fever, night sweats or hemotysis?: No Have you traveled outside the country in the last 6 months?: No Isolation: Standard ROS Review of Systems Constitutional: No Symptoms Reported Eyes: No Symptoms Reported ENTM: No Symptoms Reported Respiratoy: No Symptoms Reported Cardiovascular: No Symptoms Reported Gastrointestinal/Abdominal: No Symptoms Reported Genitourinary: No Symptoms Reported Neurological: No Symptoms Reported Musculoskeletal: No Symptoms Reported Integumentary: No Symptoms Reported and See HPI Endocrine: No Symptoms Reported All Other Systems: Reviewed and Negative PE Vital Signs Vitals: Temperature 98.0 F Pulse Rate [Right Brachial] 63 Pulse Rate 64 Respiratory Rate 20 Blood Pressure [Right Arm] 124/56 Blood Pressure [Left Arm] 132/58 Blood Pressure 128/54 O2 Sat by Pulse Oximetry 97 General Limitations: No Limitations and Altered Mental Status General Appearance: Alert and In No Apparent Distress Head Head Exam: Normal Inspection, Atraumatic and Normocephalic Eyes Eye exam: Normal Appearance and PERRL ENT ENT Exam: Normal Exam and Normal Oropharynx External Ear Exam: Normal External Inspection TM/Canal Exam: Bilateral: Normal Nose Exam: Normal Nose Exam Mouth Exam: Normal Inspection Throat Exam: Normal Inspection Neck Neck Exam: Normal Inspection Chest Chest Inspection: Normal Inspection Respiratory Respiratory Exam: Normal Lung Sounds Bilat Respiratory Exam: Bilateral: Clear to Auscultation Cardiovascular Cardiovascular Exam: Regular Rate and Normal Rhythm Abdominal Exam Abdominal Exam: Normal Inspection Extremities Extremities Exam: Normal Inspection Back Back Exam: Normal Inspection and Full ROM Neurologic Neurological Exam: Alert, Oriented X3 and CN II-XII Intact Psychiatric Psychiatric Exam: Normal Affect and Normal Mood Skin Skin Exam: Warm, Dry and Intact MDM Differential Diagnosis Differential Diagnosis: fistula, fistula COURSE Treatment Treatment: Patient examined by Dr. Weathers in the ED; recommended admission for further evaluation and treatment Consultation Called: 19:20 Consultation Comments: Dr. Meléndez agreed to admits for further evaluation. ROR Labs Reviewed Laboratory Results Reviewed?: Yes Result Diagrams: 03/17/19 05:10 03/17/19 05:10 Laboratory: 03/15/19 16:58 Urine,Catheterized Urine Culture - Final WBC 7.1 X10^3/uL (3.6-10.0) 03/17/19 05:10 RBC 4.46 X10^6/uL (3.5-5.4) 03/17/19 05:10 Hgb 12.7 g/dL (12.0-16.0) 03/17/19 05:10 Hct 38.8 % (36.0-47.0) 03/17/19 05:10 MCV 87.0 fL (80.0-100.0) 03/17/19 05:10 MCH 28.6 pg (27.0-34.0) 03/17/19 05:10 MCHC 32.9 g/dL (33.0-35.0) L 03/17/19 05:10 RDW 16.0 % (11.6-16.5) 03/17/19 05:10 Plt Count 153 X10^3/uL (150.0-450.0) 03/17/19 05:10 MPV 9.7 fL (7.4-11.0) 03/17/19 05:10 Neut % (Auto) 60.8 % (42.0-75.0) 03/17/19 05:10 Lymph % (Auto) 27.5 % (21.0-51.0) 03/17/19 05:10 [place] % (Auto) 9.5 % (0.0-13.0) 03/17/19 05:10 Eos % (Auto) 1.7 % (0.9-2.9) 03/17/19 05:10 Baso % (Auto) 0.5 % (0.2-1.0) 03/17/19 05:10 Neut # (Auto) 4.3 x10^3/uL (2.2-4.8) 03/17/19 05:10 Lymph # (Auto) 2.0 X10^3/uL (1.3-2.9) 03/17/19 05:10 Whiteside # (Auto) 0.7 x10^3/uL (0.3-0.8) 03/17/19 05:10 Eos # (Auto) 0.1 x10^3/uL (0.0-0.2) 03/17/19 05:10 Baso # (Auto) 0.0 X10^3/uL (0.0-0.1) 03/17/19 05:10 Absolute Nucleated RBC 0.0 /100WBC 03/17/19 05:10 Sodium 143 mmol/L (136-145) 03/17/19 05:10 Corrected Sodium 143 mmol/L (136-145) 03/17/19 05:10 Potassium 3.2 mmol/L (3.5-5.1) L 03/17/19 05:10 Chloride 107 mmol/L (98-107) 03/17/19 05:10 Carbon Dioxide 24.4 mmol/L (21-32) 03/17/19 05:10 BUN 7 mg/dL (7-18) 03/17/19 05:10 Creatinine 0.71 mg/dL (0.55-1.02) 03/17/19 05:10 Est GFR (MDRD) Af Amer > 60 (>60) 03/17/19 05:10 Est GFR (MDRD) Non-Af > 60 (>60) 03/17/19 05:10 Glucose 115 mg/dL (65-99) H 03/17/19 05:10 Calcium 8.9 mg/dL (8.5-10.1) 03/17/19 05:10 Corrected Calcium 9.8 mg/dL (8.5-10.1) 03/17/19 05:10 Magnesium 1.7 mg/dL (1.7-2.9) 03/17/19 05:10 Total Bilirubin 0.60 mg/dL (0.2-1.0) 03/17/19 05:10 AST 45 Units/L (15-37) H 03/17/19 05:10 ALT 12 Units/L (12-78) 03/17/19 05:10 Alkaline Phosphatase 73 Units/L (46-116) 03/17/19 05:10 Total Protein 6.6 g/dL (6.4-8.2) 03/17/19 05:10 Albumin 2.9 g/dL (3.4-5.0) L 03/17/19 05:10 Globulin 3.7 g/dL (2.5-4.5) 03/17/19 05:10 Albumin/Globulin Ratio 0.8 Ratio (1.1-2.1) L 03/17/19 05:10 Specimen Type Catherized urine 03/15/19 16:58 Urine Color Yellow (YELLOW) 03/15/19 16:58 Urine Appearance Slightly hazy (CLEAR) 03/15/19 16:58 Urine pH 8.0 (5.0 - 8.0) 03/15/19 16:58 Ur Specific Davis 1.015 (1.000-1.030) 03/15/19 16:58 Urine Protein Negative (NEGATIVE) 03/15/19 16:58 Urine Glucose (UA) Negative (NEGATIVE) 03/15/19 16:58 Urine Ketones 1+ (NEGATIVE) 03/15/19 16:58 Urine Occult Blood 4+ (NEGATIVE) 03/15/19 16:58 Urine Nitrite Negative (NEGATIVE) 03/15/19 16:58 Urine Bilirubin Negative (NEGATIVE) 03/15/19 16:58 Urine Urobilinogen Normal (NORMAL) 03/15/19 16:58 Ur Leukocyte Esterase 3+ (NEGATIVE) 03/15/19 16:58 Urine RBC 5-10 /HPF (NONE SEEN) 03/15/19 16:58 Urine WBC Tntc /HPF (NONE SEEN) 03/15/19 16:58 Ur Squamous Epith Cells Few /HPF (NEGATIVE) 03/15/19 16:58 Amorphous Sediment Trace /HPF (NEGATIVE) 03/15/19 16:58 Urine Bacteria Trace /HPF (NEGATIVE) 03/15/19 16:58 Ur Culture Indicated? Yes/culture set up 03/15/19 16:58 Stool Description 25g unformed brown 03/15/19 20:50 Stl Occult Blood (IFOB) Negative (NEGATIVE) 03/15/19 20:50 Other Results Comments: Comparison:04/25/18CT:Limited images through the lower chest shows mild increased interstitial markings in the lung base. Heart size is upper limits of normal. Review of bone windows shows spine DJD without destruc tive osseous lesion. Abdomen: The gallbladder is absent. The liver, spleen, adrenal glands atrophis pancreas, stomach and small bowel show no acute abnormality. Contrast passes distally into the colon. There is 1.1 cm left interpolar renal stone similar to the prior. Mild left renal atrophy noted. Hyperdensity seen at the interpolar right kidneyis compatible with a tiny stone measuring 1 -2 mm on axial image 39. No hydronephrosis seen. There is moderate stool in the colon with the colon above the rectum showing no acute abnormality. Appendix is not demonstrated, possible absent. Few vascular calcifications noted. Pelvis: The urinary bladder is normal. Uterus is absent. No adnexal region lesions seen. Anterior and slightly to the left of midline from the lower rectum/anal region there is tinyh focus of gas on axial image 89, also seen on coronal image 36. This appears to be outside of the lumen of the rectum, and rectovaginal fistula is not excluded. No large drainable abscess is seen. Mild thickening of the skin about the anus noted and anal fissure/skin fistula cannot be excluded by this study. Impression: Soft tissue stranding about the anus and lower rectum, with small focus of gas probably outside the lumen of the rectum,possible reflecting a small fistula, possibly to the vagina or skin surface. Direct evaluation recommended. 2. left renal atrophy with nonobstructing stone. Nonbstructing right renal stones also present. Few vascular calcifications and other incidental findings as above. Prominent hear size and chronic lung changes. Correlate clinically for signs of pulmonary infection or CHF. XRAY XRAY Interpreted by: Radiologist Diagnosis Discharge Problem: Recto-vaginal fistula ADDITIONAL NOTES Additional Notes Additional Notes: Discussed with Dr. Meléndez; Dr. Angel will evaluate on the floor.
--- NOTE | 2019-03-14 18:09 | CT ---
CT abdomen and pelvis with contrast Indication: Possible rectocele or fistula. Comparison: 04/25/2018 CT Technique: Helical images through the abdomen and pelvis after oral and IV contrast. Coronal and sagittal reformats provided. Findings: Limited images through the lower chest shows mild increased interstitial markings in the lung base. Heart size is upper limits of normal. Review of bone windows shows spine DJD without destructive osseous lesion Abdomen: The gallbladder is absent. The liver, spleen, adrenal glands, atrophic pancreas, stomach and small bowel show no acute abnormality. Contrast passes distally into the colon. There is 1.1 cm left interpolar renal stone similar to the prior. Mild left renal atrophy noted. Hyperdensity seen at the interpolar right kidney is compatible with a tiny stone measuring 1-2 mm on axial image 39. No hydronephrosis seen. There is moderate stool in the colon with the colon above the rectum showing no acute abnormality. Appendix is not demonstrated, possibly absent. Few vascular calcifications noted Pelvis: The urinary bladder is normal. Uterus is absent. No adnexal region lesions seen. Anterior and slightly to the left of midline from the lower rectum/anal region there is tiny focus of gas on axial image 89, also seen on coronal image 36. This appears to be outside of the lumen of the rectum, and rectovaginal fistula is not excluded. No large drainable abscess is seen. Mild thickening of the skin about the anus noted and anal fissure/skin fistula cannot be excluded by this study. Impression: 1. Soft tissue stranding about the anus and lower rectum, with small focus of gas probably outside the lumen of the rectum, possibly reflecting a small fistula, possibly to the vagina or skin surface. Direct evaluation recommended 2. Left renal atrophy with nonobstructing stone. Nonobstructing right renal stones also present. Few vascular calcifications and other incidental findings as above 3. Prominent heart size and chronic lung changes. Correlate clinically for signs of pulmonary infection or CHF. Reported By:
[2019-03-14] MEDS ORDERED: NS 1000 ML 1,000 ML ONE (19:58)
[2019-03-14] MEDS: NS 1000 ML 1,000 ML IV SCH (20:01)
[2019-03-14] MEDS ORDERED: DETROL LA 2 MG CAP EXT REL PO SCH (20:33)
[2019-03-14] MEDS ORDERED: FLUTICASONE PROPION SALMETEROL IN SCH (20:33)
[2019-03-14 20:54] VITALS: BMI 30.5
[2019-03-14] MEDS ORDERED: INSULIN ASPART SUBCUT SCH (21:00)
[2019-03-14] MEDS ORDERED: HumuLIN R SUBCUT PRN (21:19)
[2019-03-14] MEDS ORDERED: DEPAKOTE D.R. TAB ONE (21:30)
[2019-03-14] MEDS ORDERED: ZOLOFT ONE (21:31)
[2019-03-14] MEDS: KLONOPIN TAB 0.5 MG PO SCH (21:35)
[2019-03-14] MEDS: NEURONTIN CAP 400 MG PO SCH (21:35)
[2019-03-14] MEDS: ZOCOR TAB 40 MG PO SCH (21:35)
[2019-03-14] MEDS: DEPAKOTE D.R. TAB PO SCH (21:35)
[2019-03-14] MEDS: ZOLOFT PO SCH (21:35)
[2019-03-14] MEDS: SINEMET (PLAIN) 25/250 MG PO SCH (21:35)
[2019-03-14] MEDS: TRICOR TAB 145 MG PO SCH (21:36)
[2019-03-14] MEDS: ARICEPT TAB 10 MG PO SCH (21:36)
[2019-03-14] MEDS: XALATAN OP SCH (21:36)
[2019-03-14] MEDS ORDERED: NEURONTIN TAB 600 MG PO SCH (22:00)
--- NOTE | 2019-03-15 00:07 | DR.PROGNOT ---
Hospital Progress Notes - Progress Note for Day of: Progress Note Date: 03/14/19 - Chief Complaint Chief Complaint: pt resides in a halfway . she was directed to go to the ER because the nurses reported noticing ( stool in the vagina ) .. no abdominal pain , no vausea or vomiting . no fever . Pt is having recurrent UTI . had Hysterectomy and cholecystectomy in the past . DM, COPD, Hypothyroidism, HTN, Dementia , obesity . no pelvic radiation , no known any pelvic ca or IBD . - Past Medical Family Social History Past Med/Fam/Surg Hx: No changes since H&P Allergies: Allergies No Known Drug Allergies Allergy (Verified 03/14/19 20:35) - Review Of Systems ROS: No change since H&P - Vital Signs Vital Signs: Temperature 97.7 F Pulse Rate [Right Brachial] 61 Pulse Rate 76 Respiratory Rate 20 Blood Pressure [Right Arm] 110/63 Blood Pressure [Left Arm] 132/58 Blood Pressure 128/54 O2 Sat by Pulse Oximetry 94 - Physical Exam GI:Auscultation: Normal GI:Palpation: Normal GI: Tenderness: Other (soft abdomen ,obese, non tender , no masses were felt ) Speech Pattern: Clear - Laboratory and Diagnostics Result Diagrams: 03/14/19 15:23 03/14/19 15:23 Labs: Laboratory WBC 4.5 X10^3/uL (3.6-10.0) 03/14/19 15:23 RBC 4.81 X10^6/uL (3.5-5.4) 03/14/19 15:23 Hgb 13.6 g/dL (12.0-16.0) 03/14/19 15:23 Hct 42.5 % (36.0-47.0) 03/14/19 15:23 MCV 88.4 fL (80.0-100.0) 03/14/19 15:23 MCH 28.3 pg (27.0-34.0) 03/14/19 15:23 MCHC 32.0 g/dL (33.0-35.0) L 03/14/19 15:23 RDW 16.4 % (11.6-16.5) 03/14/19 15:23 Plt Count 125 X10^3/uL (150.0-450.0) L 03/14/19 15:23 MPV 9.3 fL (7.4-11.0) 03/14/19 15:23 Neut % (Auto) 33.5 % (42.0-75.0) L 03/14/19 15:23 Lymph % (Auto) 51.5 % (21.0-51.0) H 03/14/19 15:23 [place] % (Auto) 10.3 % (0.0-13.0) 03/14/19 15:23 Eos % (Auto) 4.0 % (0.9-2.9) H 03/14/19 15:23 Baso % (Auto) 0.7 % (0.2-1.0) 03/14/19 15:23 Neut # (Auto) 1.5 x10^3/uL (2.2-4.8) L 03/14/19 15:23 Lymph # (Auto) 2.3 X10^3/uL (1.3-2.9) 03/14/19 15:23 [place] # (Auto) 0.5 x10^3/uL (0.3-0.8) 03/14/19 15:23 Eos # (Auto) 0.2 x10^3/uL (0.0-0.2) 03/14/19 15:23 Baso # (Auto) 0.0 X10^3/uL (0.0-0.1) 03/14/19 15:23 Absolute Nucleated RBC 0.3 /100WBC 03/14/19 15:23 Sodium 145 mmol/L (136-145) 03/14/19 15:23 Corrected Sodium 146 mmol/L (136-145) H 03/14/19 15:23 Potassium 4.3 mmol/L (3.5-5.1) 03/14/19 15:23 Chloride 106 mmol/L (98-107) 03/14/19 15:23 Carbon Dioxide 31.0 mmol/L (21-32) 03/14/19 15:23 BUN 17 mg/dL (7-18) 03/14/19 15:23 Creatinine 0.85 mg/dL (0.55-1.02) 03/14/19 15:23 Est GFR (MDRD) Af Amer > 60 (>60) 03/14/19 15:23 Est GFR (MDRD) Non-Af > 60 (>60) 03/14/19 15:23 Glucose 157 mg/dL (65-99) H 03/14/19 15:23 Calcium 9.1 mg/dL (8.5-10.1) 03/14/19 15:23 Corrected Calcium 10.1 mg/dL (8.5-10.1) 03/14/19 15:23 Total Bilirubin 0.40 mg/dL (0.2-1.0) 03/14/19 15:23 AST 57 Units/L (15-37) H 03/14/19 15:23 ALT 11 Units/L (12-78) L 03/14/19 15:23 Alkaline Phosphatase 109 Units/L (46-116) 03/14/19 15:23 Total Protein 7.4 g/dL (6.4-8.2) 03/14/19 15:23 Albumin 2.7 g/dL (3.4-5.0) L 03/14/19 15:23 Globulin 4.7 g/dL (2.5-4.5) H 03/14/19 15:23 Albumin/Globulin Ratio 0.6 Ratio (1.1-2.1) L 03/14/19 15:23 - Assessment and Plan 1: 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 no H/O malignancy or radiation to the pelvis . will start IV ATB and do colonoscopy after bowel prep on sunday . - Problem Patient Problems: Patient Problems Recto-vaginal fistula (Acute) N82.3
--- NOTE | 2019-03-15 05:46 | RAD ---
Examination: AP chest History: Patient had surgery Comparison 12/19/2018 Findings: Heart size upper normal, transverse diameter accentuated by patient rotation. There is now noted a diffuse bilateral interstitial increase in the lungs compared to prior study. No focal consolidation, pneumothorax or large pleural effusion. Impression: Interval appearance of bilateral interstitial pulmonary prominence which may represent a congestive or inflammatory process. Correlate with clinical findings and follow-up suggested. Reported By:
[2019-03-15 05:58] LABS: ALANINE AMINOTRANSFERASE 6 Units/L (12-78); ALBUMIN 2.4 g/dL (3.4-5.0); ALKALINE PHOSPHATASE 80 Units/L (46-116); ASPARTATE AMINO TRANSFERASE 52 Units/L (15-37); BLOOD UREA NITROGEN 14 mg/dL (7-18); CALCIUM 8.7 mg/dL (8.5-10.1); CARBON DIOXIDE 29.2 mmol/L (21-32); CHLORIDE 106 mmol/L (98-107); CREATININE 0.69 mg/dL (0.55-1.02); SODIUM 143 mmol/L (136-145); TOTAL PROTEIN 6.3 g/dL (6.4-8.2); eGFR NON BLACK RACES > 60 (>60)
[2019-03-15] MEDS: SINEMET (PLAIN) 25/250 MG PO SCH ×3 (06:05→21:20)
[2019-03-15] MEDS: NEURONTIN CAP 400 MG PO SCH ×3 (06:05→21:23)
[2019-03-15] MEDS: FLAGYL IV PREMIX 500 MG BAG 500 MG/100 ML BAG IV SCH ×5 (06:07→21:22)
[2019-03-15 06:54] LABS: BASOPHILS % (AUTO) 0.6 % (0.2-1.0); EOSINOPHILS # (AUTO) 0.2 x10^3/uL (0.0-0.2); EOSINOPHILS % (AUTO) 3.3 % (0.9-2.9); HEMATOCRIT 37.4 % (36.0-47.0); HEMOGLOBIN 12.1 g/dL (12.0-16.0); LYMPHOCYTES # (AUTO) 2.6 X10^3/uL (1.3-2.9); LYMPHOCYTES % (AUTO) 56.3 % (21.0-51.0); MEAN CORPUSCULAR HEMOGLOBIN 28.3 pg (27.0-34.0); MEAN CORPUSCULAR HGB CONC 32.3 g/dL (33.0-35.0); MEAN CORPUSCULAR VOLUME 87.8 fL (80.0-100.0); MEAN PLATELET VOLUME 9.4 fL (7.4-11.0); MONOCYTES # (AUTO) 0.4 x10^3/uL (0.3-0.8); MONOCYTES % (AUTO) 9.1 % (0.0-13.0); NEUTROPHILS # (AUTO) 1.4 x10^3/uL (2.2-4.8); NEUTROPHILS % (AUTO) 30.7 % (42.0-75.0); PLATELET COUNT 131 X10^3/uL (150.0-450.0); RED BLOOD COUNT 4.26 X10^6/uL (3.5-5.4); RED CELL DISTRIBUTION WIDTH 16.5 % (11.6-16.5); WHITE BLOOD COUNT 4.6 X10^3/uL (3.6-10.0)
[2019-03-15] MEDS ORDERED: ZOLOFT ONE (07:45)
[2019-03-15] MEDS ORDERED: DEPAKOTE D.R. TAB ONE (07:45)
[2019-03-15] MEDS: ZOLOFT PO SCH (08:22)
[2019-03-15] MEDS: KLONOPIN TAB 0.5 MG PO SCH ×2 (08:23→21:20)
[2019-03-15] MEDS: DEPAKOTE D.R. TAB PO SCH (08:23)
[2019-03-15] MEDS: XALATAN OP SCH (08:24)
[2019-03-15] MEDS: NS 1000 ML 1,000 ML IV SCH (08:24)
[2019-03-15] MEDS ORDERED: ULTRAM PO PRN (08:30)
[2019-03-15] MEDS ORDERED: PERCOCET TAB 5/325 MG PO PRN (09:13)
[2019-03-15] MEDS: INDERAL TAB 10 MG PO SCH ×2 (09:24→21:24)
[2019-03-15] MEDS: FLONASE NASAL SPRAY ENOSTRIL SCH (09:24)
[2019-03-15] MEDS: PATIENT'S HOME MEDICATION (Memantine [Namenda Xr] 28 MG) PO SCH (09:25)
[2019-03-15] MEDS: PROVENTIL NEB TX 0.083% 2.5MG/ 3ML NEB SCH ×3 (09:26→20:21)
[2019-03-15] MEDS: PULMICORT NEB TX 0.5 MG NEB SCH ×3 (09:26→20:21)
[2019-03-15] MEDS: SYNTHROID 75 mcg TAB PO SCH (09:26)
[2019-03-15] MEDS: HEMOCYTE-PLUS PO SCH (09:34)
[2019-03-15] MEDS: TAB-A-VITE PO SCH (09:35)
[2019-03-15] MEDS: OSCAL+D or CALTRATE+D PO SCH (09:35)
--- NOTE | 2019-03-15 10:11 | DR.H&P ---
H&P - History & Physical for Day of: H&P Date: 03/14/19 - Chief Complaint Chief Complaint: STOOL IN VAGINA - History of Present Illness History of Present Illness: IS A 73 YEAR OLD RESIDENT OF [facility] / [facility] WHO PRESENTED TO THE ER PER ORDERS OF DUE TO A RECTOCELE OR FISTULA. STAFF HAS NOTICED FECES IN VAGINA FOR THE PAST WEEK. ON ARRIVAL, VITALS WERE 97.9-76-17-97%-116/59. LABS WERE OBTAINED. ABNORMAL LAB VALUES INCLUDE THE FOLLOWING: PLT COUNT 125, GLUCOSE 157, AST 57, ALT 11, ALBUMIN 2.7, GLOBULIN 4.7. AN ABDOMEN/PELVIS CT WAS OBTAINED AND REVEALED: Soft tissue stranding about the anus and lower rectum, with small focus of gas probably outside the lumen of the rectum, possibly reflecting a small fistula, possibly to the vagina or skin surface. Direct evaluation recommended. Left renal atrophy with nonobstructing stone. Nonobstructing right renal stones also present. Few vascular calcifications and other incidental findings as above. Prominent heart size and chronic lung changes. Correlate clinically for signs of pulmonary infection or CHF. SHE WAS ADMITTED TO THE HOSPITAL FOR FURTHER EVALUATION AND TREATMENT OF A RECTO-VAGINAL FISTULA. SHE STARTED ON NORMAL SALINE AT 80ML/HR AND FLAGYL 500MG IV Q6H. PLANS FOR A COLONOSCOPY ON SUNDAY. WE PLAN TO FOLLOW-UP WITH AM LABS AND CONTINUE TO MONITOR. - Past Medical History Past Medical History: Coronary Artery Disease, Hypertension, Dyslipidemia, Diabetes, Dementia, Depression, Anxiety, Hypothyroidism, Seizures, COPD, GERD, Arthritis - Past Surgical History Surgical History: Unknown - Social History Does any household member use tobacco: No Alcohol Use: None Drug Use: None - Medications Home Medications: No Known Drug Allergies Allergy (Verified 03/14/19 20:35) CONTINUE taking the following medications aspirin 325 mg PO DAILY 03/14/19 [History] calcium carbonate-vitamin D3 [Calcium 500 + D] 1 tab PO DAILY 03/14/19 [History] docusate sodium [Colace] 100 mg PO BID 03/14/19 [History] fluticasone propionate [Flonase Allergy Relief] 2 spray INTRANASAL DAILY 03/14/19 [History] iron-folic acid-mv, min cmb#15 [Hemocyte-Plus] 1 tab PO DAILY 03/14/19 [History] tramadol 50 mg PO Q6H PRN 03/14/19 [History] - Review of Systems Constitutional: No Symptoms Reported Eyes: No Symptoms Reported ENT: No Symptoms Reported Respiratory: No Symptoms Reported Cardiovascular: No Symptoms Reported Gastrointestinal: No Symptoms Reported Genitourinary: No Symptoms Reported Musculoskeletal: No Symptoms Reported Skin: No Symptoms Reported Neurological: No Symptoms Reported - Physical Exam Vital Signs: Temperature 98.0 F Pulse Rate [Right Brachial] 52 Pulse Rate 76 Respiratory Rate 18 Blood Pressure [Right Arm] 95/49 Blood Pressure [Left Arm] 132/58 Blood Pressure 128/54 O2 Sat by Pulse Oximetry 99 Oriented: Not Oriented Eyes: Normal Ear: Normal Nose: Normal Throat: Normal Respiratory: Diminished Throughout Cardiovascular: Normal : Normal Auscultation: Bowel Sounds: Normal Palpation: Normal Tenderness: Normal Skin: Normal Musculoskeletal: Normal Psychiatric: Normal Mood Description: Calm Affect: Normal Speech Pattern: Clear - Assessment/Plan (1) Recto-vaginal fistula Status: Acute Plan: IV FLUIDS, IV ANTIBIOTICS, BOWEL PREP AND COLONOSCOPY ON SUNDAY - Allergies Allergies/Adverse Reactions: Allergies Allergy/AdvReac Type Severity Reaction Status Date / Time No Known Drug Allergies Allergy Verified 03/14/19 20:35
--- NOTE | 2019-03-15 10:37 | DR.PROGNOT ---
Hospital Progress Notes - Progress Note for Day of: Progress Note Date: 03/15/19 - Chief Complaint Chief Complaint: c/o mild lower abdominal pain . no nausea or vomiting . having small amount of vaginal discharge today . - Past Medical Family Social History Past Med/Fam/Surg Hx: No changes since H&P Allergies: Allergies No Known Drug Allergies Allergy (Verified 03/14/19 20:35) - Review Of Systems ROS: No change since H&P - Vital Signs Vital Signs: Temperature 98.0 F Pulse Rate [Right Brachial] 52 Pulse Rate 76 Respiratory Rate 18 Blood Pressure [Right Arm] 95/49 Blood Pressure [Left Arm] 132/58 Blood Pressure 128/54 O2 Sat by Pulse Oximetry 99 - Physical Exam Oriented: Not Oriented Eyes: Normal Ear: Normal Nose: Normal Throat: Normal Cardiovascular: Normal : Normal GI:Auscultation: Normal GI:Palpation: Normal GI: Tenderness: Diffuse (soft obese abdomen . only mild diffise tenderness , no rebound or rigidity , BS +) Skin: Normal Musculoskeletal: Normal Psychiatric: Normal Mood Description: Calm Affect: Normal Speech Pattern: Clear - Laboratory and Diagnostics Result Diagrams: 03/15/19 06:38 03/15/19 05:12 Labs: Laboratory WBC 4.6 X10^3/uL (3.6-10.0) 03/15/19 06:38 RBC 4.26 X10^6/uL (3.5-5.4) 03/15/19 06:38 Hgb 12.1 g/dL (12.0-16.0) 03/15/19 06:38 Hct 37.4 % (36.0-47.0) 03/15/19 06:38 MCV 87.8 fL (80.0-100.0) 03/15/19 06:38 MCH 28.3 pg (27.0-34.0) 03/15/19 06:38 MCHC 32.3 g/dL (33.0-35.0) L 03/15/19 06:38 RDW 16.5 % (11.6-16.5) 03/15/19 06:38 Plt Count 131 X10^3/uL (150.0-450.0) L 03/15/19 06:38 MPV 9.4 fL (7.4-11.0) 03/15/19 06:38 Neut % (Auto) 30.7 % (42.0-75.0) L 03/15/19 06:38 Lymph % (Auto) 56.3 % (21.0-51.0) H 03/15/19 06:38 [place] % (Auto) 9.1 % (0.0-13.0) 03/15/19 06:38 Eos % (Auto) 3.3 % (0.9-2.9) H 03/15/19 06:38 Baso % (Auto) 0.6 % (0.2-1.0) 03/15/19 06:38 Neut # (Auto) 1.4 x10^3/uL (2.2-4.8) L 03/15/19 06:38 Lymph # (Auto) 2.6 X10^3/uL (1.3-2.9) 03/15/19 06:38 [place] # (Auto) 0.4 x10^3/uL (0.3-0.8) 03/15/19 06:38 Eos # (Auto) 0.2 x10^3/uL (0.0-0.2) 03/15/19 06:38 Baso # (Auto) 0.0 X10^3/uL (0.0-0.1) 03/15/19 06:38 Absolute Nucleated RBC 0.0 /100WBC 03/15/19 06:38 Sodium 143 mmol/L (136-145) 03/15/19 05:12 Corrected Sodium TNP 03/15/19 05:12 Potassium 4.1 mmol/L (3.5-5.1) 03/15/19 05:12 Chloride 106 mmol/L (98-107) 03/15/19 05:12 Carbon Dioxide 29.2 mmol/L (21-32) 03/15/19 05:12 BUN 14 mg/dL (7-18) 03/15/19 05:12 Creatinine 0.69 mg/dL (0.55-1.02) 03/15/19 05:12 Est GFR (MDRD) Af Amer > 60 (>60) 03/15/19 05:12 Est GFR (MDRD) Non-Af > 60 (>60) 03/15/19 05:12 Glucose 108 mg/dL (65-99) H 03/15/19 05:12 Calcium 8.7 mg/dL (8.5-10.1) 03/15/19 05:12 Corrected Calcium 10.0 mg/dL (8.5-10.1) 03/15/19 05:12 Total Bilirubin 0.30 mg/dL (0.2-1.0) 03/15/19 05:12 AST 52 Units/L (15-37) H 03/15/19 05:12 ALT 6 Units/L (12-78) L 03/15/19 05:12 Alkaline Phosphatase 80 Units/L (46-116) 03/15/19 05:12 Total Protein 6.3 g/dL (6.4-8.2) L 03/15/19 05:12 Albumin 2.4 g/dL (3.4-5.0) L 03/15/19 05:12 Globulin 3.9 g/dL (2.5-4.5) 03/15/19 05:12 Albumin/Globulin Ratio 0.6 Ratio (1.1-2.1) L 03/15/19 05:12 - Assessment and Plan 1: 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 no H/O malignancy or radiation to the pelvis . on IV ATB and for colonoscopy after bowel prep on sunday . - Problem Patient Problems: Patient Problems Recto-vaginal fistula (Acute) N82.3
[2019-03-15 17:46] LABS: BILIRUBIN,URINE NEGATIVE (NEGATIVE); BLOOD/HEMOGLOBIN,URINE 4+ (NEGATIVE); GLUCOSE, URINE NEGATIVE (NEGATIVE); KETONES,URINE 1+ (NEGATIVE); LEUKOCYTE ESTERASE ,URINE 3+ (NEGATIVE); NITRITES,URINE NEGATIVE (NEGATIVE); PROTEIN,URINE NEGATIVE (NEGATIVE); UROBILINOGEN,URINE NORMAL (NORMAL)
[2019-03-15 18:00] LABS: APPEARANCE,URINE SLIGHTLY HAZY (CLEAR); COLOR,URINE YELLOW (YELLOW)
[2019-03-15 18:01] LABS: AMORPHOUS SEDIMENT,UR TRACE /HPF (NEGATIVE); BACTERIA,URINE TRACE /HPF (NEGATIVE); SQUAMOUS EPITHELIAL CELL,UR FEW /HPF (NEGATIVE)
[2019-03-15] MEDS ORDERED: PriLOSEC PO SCH (21:00)
[2019-03-15] MEDS: DEPAKOTE SPRINKLE PO SCH (21:20)
[2019-03-15] MEDS: ARICEPT TAB 10 MG PO SCH (21:22)
[2019-03-15] MEDS: ZOCOR TAB 40 MG PO SCH (21:23)
[2019-03-15] MEDS: PriLOSEC PO SCH (21:23)
[2019-03-15] MEDS: TRICOR TAB 145 MG PO SCH (21:23)
[2019-03-15] MEDS: SNACK - Diabetic Appropriate PO SCH (22:35)
[2019-03-16] MEDS: NS 1000 ML 1,000 ML IV SCH ×4 (01:31→16:35)
[2019-03-16] MEDS: FLAGYL IV PREMIX 500 MG BAG 500 MG/100 ML BAG IV SCH ×4 (03:22→20:11)
[2019-03-16] MEDS: NEURONTIN CAP 400 MG PO SCH ×3 (05:53→21:13)
[2019-03-16] MEDS: SINEMET (PLAIN) 25/250 MG PO SCH ×3 (05:54→21:13)
[2019-03-16 06:01] LABS: BASOPHILS % (AUTO) 0.5 % (0.2-1.0); EOSINOPHILS # (AUTO) 0.1 x10^3/uL (0.0-0.2); EOSINOPHILS % (AUTO) 2.1 % (0.9-2.9); HEMOGLOBIN 12.4 g/dL (12.0-16.0); LYMPHOCYTES # (AUTO) 2.6 X10^3/uL (1.3-2.9); LYMPHOCYTES % (AUTO) 54.3 % (21.0-51.0); MEAN CORPUSCULAR HEMOGLOBIN 28.6 pg (27.0-34.0); MEAN CORPUSCULAR HGB CONC 32.6 g/dL (33.0-35.0); MEAN CORPUSCULAR VOLUME 87.7 fL (80.0-100.0); MEAN PLATELET VOLUME 9.3 fL (7.4-11.0); MONOCYTES # (AUTO) 0.4 x10^3/uL (0.3-0.8); MONOCYTES % (AUTO) 9.2 % (0.0-13.0); NEUTROPHILS # (AUTO) 1.6 x10^3/uL (2.2-4.8); NEUTROPHILS % (AUTO) 33.9 % (42.0-75.0); PLATELET COUNT 136 X10^3/uL (150.0-450.0); RED BLOOD COUNT 4.33 X10^6/uL (3.5-5.4); RED CELL DISTRIBUTION WIDTH 16.3 % (11.6-16.5); WHITE BLOOD COUNT 4.7 X10^3/uL (3.6-10.0)
[2019-03-16 06:12] LABS: ALBUMIN 2.3 g/dL (3.4-5.0); ALKALINE PHOSPHATASE 75 Units/L (46-116); ASPARTATE AMINO TRANSFERASE 46 Units/L (15-37); BLOOD UREA NITROGEN 10 mg/dL (7-18); CALCIUM 8.9 mg/dL (8.5-10.1); CARBON DIOXIDE 29.2 mmol/L (21-32); CHLORIDE 110 mmol/L (98-107); COR CA(FOR HYPOALB) 10.3 mg/dL (8.5-10.1); COR NA(FOR HYPERGLY) 146 mmol/L (136-145); CREATININE 0.71 mg/dL (0.55-1.02); SODIUM 145 mmol/L (136-145); TOTAL PROTEIN 6.2 g/dL (6.4-8.2); eGFR NON BLACK RACES > 60 (>60)
[2019-03-16 06:29] LABS: ALANINE AMINOTRANSFERASE < 6 Units/L (12-78)
[2019-03-16] MEDS ORDERED: ZOLOFT ONE (08:03)
[2019-03-16] MEDS: PULMICORT NEB TX 0.5 MG NEB SCH ×2 (08:36→20:04)
[2019-03-16] MEDS: PROVENTIL NEB TX 0.083% 2.5MG/ 3ML NEB SCH ×2 (08:37→20:04)
[2019-03-16] MEDS: XALATAN OP SCH (08:43)
[2019-03-16] MEDS: ZOLOFT PO SCH (08:43)
[2019-03-16] MEDS: OSCAL+D or CALTRATE+D PO SCH (08:44)
[2019-03-16] MEDS: HEMOCYTE-PLUS PO SCH (08:44)
[2019-03-16] MEDS: SYNTHROID 75 mcg TAB PO SCH (08:44)
[2019-03-16] MEDS: KLONOPIN TAB 0.5 MG PO SCH ×2 (08:44→20:08)
[2019-03-16] MEDS: PATIENT'S HOME MEDICATION (Memantine [Namenda Xr] 28 MG) PO SCH (08:44)
[2019-03-16] MEDS: TAB-A-VITE PO SCH (08:44)
[2019-03-16] MEDS: DEPAKOTE SPRINKLE PO SCH ×2 (08:44→20:08)
[2019-03-16] MEDS: INDERAL TAB 10 MG PO SCH ×2 (08:45→20:09)
[2019-03-16] MEDS: FLONASE NASAL SPRAY ENOSTRIL SCH (08:45)
[2019-03-16] MEDS: ALBUMIN HUMAN 25%- 100 ML 100 ML IV SCH (10:03)
--- NOTE | 2019-03-16 10:38 | DR.PROGNOT ---
Hospital Progress Notes - Progress Note for Day of: Progress Note Date: 03/16/19 - Chief Complaint Chief Complaint: c/o mild lower abdominal pain . no nausea or vomiting . having small amount of vaginal discharge today . having bowel prep today . - Past Medical Family Social History Past Med/Fam/Surg Hx: No changes since H&P Allergies: Allergies No Known Drug Allergies Allergy (Verified 03/14/19 20:35) - Review Of Systems ROS: No change since H&P - Vital Signs Vital Signs: Temperature 97.8 F Pulse Rate [Right Brachial] 56 Pulse Rate 79 Respiratory Rate 18 Blood Pressure [Right Arm] 137/60 Blood Pressure [Left Arm] 132/58 Blood Pressure 128/54 O2 Sat by Pulse Oximetry 94 - Physical Exam Oriented: Not Oriented Eyes: Normal Ear: Normal Nose: Normal Throat: Normal Cardiovascular: Normal : Normal GI:Auscultation: Normal GI:Palpation: Normal GI: Tenderness: Diffuse (soft obese abdomen . only mild diffise tenderness , no rebound or rigidity , BS +) Skin: Normal Musculoskeletal: Normal Psychiatric: Normal Mood Description: Calm Affect: Normal Speech Pattern: Clear, Appropriate - Laboratory and Diagnostics Result Diagrams: 03/16/19 05:26 03/16/19 05:26 Labs: Laboratory WBC 4.7 X10^3/uL (3.6-10.0) 03/16/19 05:26 RBC 4.33 X10^6/uL (3.5-5.4) 03/16/19 05:26 Hgb 12.4 g/dL (12.0-16.0) 03/16/19 05:26 Hct 38.0 % (36.0-47.0) 03/16/19 05:26 MCV 87.7 fL (80.0-100.0) 03/16/19 05:26 MCH 28.6 pg (27.0-34.0) 03/16/19 05:26 MCHC 32.6 g/dL (33.0-35.0) L 03/16/19 05:26 RDW 16.3 % (11.6-16.5) 03/16/19 05:26 Plt Count 136 X10^3/uL (150.0-450.0) L 03/16/19 05:26 MPV 9.3 fL (7.4-11.0) 03/16/19 05:26 Neut % (Auto) 33.9 % (42.0-75.0) L 03/16/19 05:26 Lymph % (Auto) 54.3 % (21.0-51.0) H 03/16/19 05:26 [place] % (Auto) 9.2 % (0.0-13.0) 03/16/19 05:26 Eos % (Auto) 2.1 % (0.9-2.9) 03/16/19 05:26 Baso % (Auto) 0.5 % (0.2-1.0) 03/16/19 05:26 Neut # (Auto) 1.6 x10^3/uL (2.2-4.8) L 03/16/19 05:26 Lymph # (Auto) 2.6 X10^3/uL (1.3-2.9) 03/16/19 05:26 [place] # (Auto) 0.4 x10^3/uL (0.3-0.8) 03/16/19 05:26 Eos # (Auto) 0.1 x10^3/uL (0.0-0.2) 03/16/19 05:26 Baso # (Auto) 0.0 X10^3/uL (0.0-0.1) 03/16/19 05:26 Absolute Nucleated RBC 0.1 /100WBC 03/16/19 05:26 Sodium 145 mmol/L (136-145) 03/16/19 05:26 Corrected Sodium 146 mmol/L (136-145) H 03/16/19 05:26 Potassium 4.4 mmol/L (3.5-5.1) 03/16/19 05:26 Chloride 110 mmol/L (98-107) H 03/16/19 05:26 Carbon Dioxide 29.2 mmol/L (21-32) 03/16/19 05:26 BUN 10 mg/dL (7-18) 03/16/19 05:26 Creatinine 0.71 mg/dL (0.55-1.02) 03/16/19 05:26 Est GFR (MDRD) Af Amer > 60 (>60) 03/16/19 05:26 Est GFR (MDRD) Non-Af > 60 (>60) 03/16/19 05:26 Glucose 123 mg/dL (65-99) H 03/16/19 05:26 Calcium 8.9 mg/dL (8.5-10.1) 03/16/19 05:26 Corrected Calcium 10.3 mg/dL (8.5-10.1) H 03/16/19 05:26 Total Bilirubin 0.40 mg/dL (0.2-1.0) 03/16/19 05:26 AST 46 Units/L (15-37) H 03/16/19 05:26 ALT < 6 Units/L (12-78) L 03/16/19 05:26 Alkaline Phosphatase 75 Units/L (46-116) 03/16/19 05:26 Total Protein 6.2 g/dL (6.4-8.2) L 03/16/19 05:26 Albumin 2.3 g/dL (3.4-5.0) L 03/16/19 05:26 Globulin 3.9 g/dL (2.5-4.5) 03/16/19 05:26 Albumin/Globulin Ratio 0.6 Ratio (1.1-2.1) L 03/16/19 05:26 Specimen Type Catherized urine 03/15/19 16:58 Urine Color Yellow (YELLOW) 03/15/19 16:58 Urine Appearance Slightly hazy (CLEAR) 03/15/19 16:58 Urine pH 8.0 (5.0 - 8.0) 03/15/19 16:58 Ur Specific [place] 1.015 (1.000-1.030) 03/15/19 16:58 Urine Protein Negative (NEGATIVE) 03/15/19 16:58 Urine Glucose (UA) Negative (NEGATIVE) 03/15/19 16:58 Urine Ketones 1+ (NEGATIVE) 03/15/19 16:58 Urine Occult Blood 4+ (NEGATIVE) 03/15/19 16:58 Urine Nitrite Negative (NEGATIVE) 03/15/19 16:58 Urine Bilirubin Negative (NEGATIVE) 03/15/19 16:58 Urine Urobilinogen Normal (NORMAL) 03/15/19 16:58 Ur Leukocyte Esterase 3+ (NEGATIVE) 03/15/19 16:58 Urine RBC 5-10 /HPF (NONE SEEN) 03/15/19 16:58 Urine WBC Tntc /HPF (NONE SEEN) 03/15/19 16:58 Ur Squamous Epith Cells Few /HPF (NEGATIVE) 03/15/19 16:58 Amorphous Sediment Trace /HPF (NEGATIVE) 03/15/19 16:58 Urine Bacteria Trace /HPF (NEGATIVE) 03/15/19 16:58 Ur Culture Indicated? 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 on IV ATB and for colonoscopy in am. - Problem Patient Problems: Patient Problems Recto-vaginal fistula (Acute) N82.3
[2019-03-16] MEDS ORDERED: ZOFRAN INJ 4 MG VIAL IVP PRN (12:55)
--- NOTE | 2019-03-16 14:36 | PCM.PROG ---
Progress Note - Progress Note for Day of Date of Exam: 03/15/19 - Subjective Subjective: WAS ADMITTED LAST NIGHT FOR TREATMENT OF A RECTO-VAGINAL FISTULA. SHE IS LYING IN BED WITH EYES CLOSED ON MORNING ROUNDS. SHE AWAKENS TO VERBAL STIMULI, BUT QUICKLY GOES BACK TO SLEEP. ON EXAMINATION, HEART IS REGULAR IN RATE AND RHYTHM. BILATERAL LUNGS ARE NOTED WITH DIMINISHED LUNG SOUNDS THROUGHOUT. ABDOMEN IS ROUND, SOFT, AND NOTED WITH MILD, LOWER ABDOMINAL PAIN. NORMAL BOWEL SOUNDS NOTED. SHE IS HAVING SOME VAGINAL DISCHARGE THIS MORNING. HER VITALS THIS MORNING ARE 98.0-52-18-96%-95/49. LABS WERE OBTAINED. ABNORMAL LAB VALUES INCLUDE THE FOLLOWING: PLT COUNT 131, GLUCOSE 108, AST 52, ALT 6, TOTAL PROTEIN 6.3, ALBUMIN 2.4. SHE IS CURRENTLY RECEIVING IV FLAGYL AND IV HYD RATION. WE WILL CONTINUE WITH CURRENT PLAN OF CARE TODAY. PLANS FOR A COLONOSCOPY ON SUNDAY. OTHERWISE, WE PLAN TO FOLLOW UP WITH AM LABS AND CONTINUE TO MONITOR. - Past Medical Family Social History Past Med/Fam/Surg Hx: No changes since H&P Allergies: Allergies No Known Drug Allergies Allergy (Verified 03/14/19 20:35) - Review of Systems ROS: No change since H&P - Vital Signs and I&O's Vital Signs: Temperature 98.0 F Pulse Rate [Right Brachial] 62 Pulse Rate 79 Respiratory Rate 20 Blood Pressure [Right Arm] 125/80 Blood Pressure [Left Arm] 132/58 Blood Pressure 128/54 O2 Sat by Pulse Oximetry 95 Intake and Output: Intake & Output 03/14/19 03/15/19 03/16/19 03/17/19 11:59 11:59 11:59 11:59 Intake Total 0 / 0 2368 / 2368 Balance 0 / 0 2368 / 2368 - Physical Exam Oriented: Not Oriented Eyes: Normal Ear: Normal Nose: Normal Throat: Normal Respiratory: Diminished Cardiovascular: Normal : Normal Auscultation: Bowel Sounds: Normal Palpation: Normal Tenderness: Diffuse (soft obese abdomen . only mild diffise tenderness , no rebound or rigidity , BS +) Skin: Normal Musculoskeletal: Normal Psychiatric: Normal Mood Description: Calm Affect: Normal Speech Pattern: Clear, Appropriate - Laboratory and Diagnostics Result Diagrams: 03/16/19 05:26 03/16/19 05:26 Labs: Laboratory WBC 4.7 X10^3/uL (3.6-10.0) 03/16/19 05:26 RBC 4.33 X10^6/uL (3.5-5.4) 03/16/19 05:26 Hgb 12.4 g/dL (12.0-16.0) 03/16/19 05:26 Hct 38.0 % (36.0-47.0) 03/16/19 05:26 MCV 87.7 fL (80.0-100.0) 03/16/19 05:26 MCH 28.6 pg (27.0-34.0) 03/16/19 05:26 MCHC 32.6 g/dL (33.0-35.0) L 03/16/19 05:26 RDW 16.3 % (11.6-16.5) 03/16/19 05:26 Plt Count 136 X10^3/uL (150.0-450.0) L 03/16/19 05:26 MPV 9.3 fL (7.4-11.0) 03/16/19 05:26 Neut % (Auto) 33.9 % (42.0-75.0) L 03/16/19 05:26 Lymph % (Auto) 54.3 % (21.0-51.0) H 03/16/19 05:26 [place] % (Auto) 9.2 % (0.0-13.0) 03/16/19 05:26 Eos % (Auto) 2.1 % (0.9-2.9) 03/16/19 05:26 Baso % (Auto) 0.5 % (0.2-1.0) 03/16/19 05:26 Neut # (Auto) 1.6 x10^3/uL (2.2-4.8) L 03/16/19 05:26 Lymph # (Auto) 2.6 X10^3/uL (1.3-2.9) 03/16/19 05:26 [place] # (Auto) 0.4 x10^3/uL (0.3-0.8) 03/16/19 05:26 Eos # (Auto) 0.1 x10^3/uL (0.0-0.2) 03/16/19 05:26 Baso # (Auto) 0.0 X10^3/uL (0.0-0.1) 03/16/19 05:26 Absolute Nucleated RBC 0.1 /100WBC 03/16/19 05:26 Sodium 145 mmol/L (136-145) 03/16/19 05:26 Corrected Sodium 146 mmol/L (136-145) H 03/16/19 05:26 Potassium 4.4 mmol/L (3.5-5.1) 03/16/19 05:26 Chloride 110 mmol/L (98-107) H 03/16/19 05:26 Carbon Dioxide 29.2 mmol/L (21-32) 03/16/19 05:26 BUN 10 mg/dL (7-18) 03/16/19 05:26 Creatinine 0.71 mg/dL (0.55-1.02) 03/16/19 05:26 Est GFR (MDRD) Af Amer > 60 (>60) 03/16/19 05:26 Est GFR (MDRD) Non-Af > 60 (>60) 03/16/19 05:26 Glucose 123 mg/dL (65-99) H 03/16/19 05:26 Calcium 8.9 mg/dL (8.5-10.1) 03/16/19 05:26 Corrected Calcium 10.3 mg/dL (8.5-10.1) H 03/16/19 05:26 Total Bilirubin 0.40 mg/dL (0.2-1.0) 03/16/19 05:26 AST 46 Units/L (15-37) H 03/16/19 05:26 ALT < 6 Units/L (12-78) L 03/16/19 05:26 Alkaline Phosphatase 75 Units/L (46-116) 03/16/19 05:26 Total Protein 6.2 g/dL (6.4-8.2) L 03/16/19 05:26 Albumin 2.3 g/dL (3.4-5.0) L 03/16/19 05:26 Globulin 3.9 g/dL (2.5-4.5) 03/16/19 05:26 Albumin/Globulin Ratio 0.6 Ratio (1.1-2.1) L 03/16/19 05:26 Specimen Type Catherized urine 03/15/19 16:58 Urine Color Yellow (YELLOW) 03/15/19 16:58 Urine Appearance Slightly hazy (CLEAR) 03/15/19 16:58 Urine pH 8.0 (5.0 - 8.0) 03/15/19 16:58 Ur Specific [place] 1.015 (1.000-1.030) 03/15/19 16:58 Urine Protein Negative (NEGATIVE) 03/15/19 16:58 Urine Glucose (UA) Negative (NEGATIVE) 03/15/19 16:58 Urine Ketones 1+ (NEGATIVE) 03/15/19 16:58 Urine Occult Blood 4+ (NEGATIVE) 03/15/19 16:58 Urine Nitrite Negative (NEGATIVE) 03/15/19 16:58 Urine Bilirubin Negative (NEGATIVE) 03/15/19 16:58 Urine Urobilinogen Normal (NORMAL) 03/15/19 16:58 Ur Leukocyte Esterase 3+ (NEGATIVE) 03/15/19 16:58 Urine RBC 5-10 /HPF (NONE SEEN) 03/15/19 16:58 Urine WBC Tntc /HPF (NONE SEEN) 03/15/19 16:58 Ur Squamous Epith Cells Few /HPF (NEGATIVE) 03/15/19 16:58 Amorphous Sediment Trace /HPF (NEGATIVE) 03/15/19 16:58 Urine Bacteria Trace /HPF (NEGATIVE) 03/15/19 16:58 Ur Culture Indicated? Yes/culture set up 03/15/19 16:58 Stool Description 25g unformed brown 03/15/19 20:50 Stl Occult Blood (IFOB) Negative (NEGATIVE) 03/15/19 20:50 - Plan (1) Recto-vaginal fistula Status: Acute Plan: IV FLUIDS, IV ANTIBIOTICS, BOWEL PREP AND COLONOSCOPY ON SUNDAY
[2019-03-16] MEDS ORDERED: DULCOLAX TAB EC 5 MG PO ONE ×2 (15:00→21:00)
[2019-03-16] MEDS ORDERED: MIRALAX POWDER (255 GRAMS BTL) PO NR (17:00)
--- NOTE | 2019-03-16 19:10 | PCM.PROG ---
Progress Note - Progress Note for Day of Date of Exam: 03/16/19 - Subjective Subjective: WAS ADMITTED LAST NIGHT FOR TREATMENT OF A RECTO-VAGINAL FISTULA. SHE IS LYING IN BED WITH EYES CLOSED ON MORNING ROUNDS. SHE AWAKENS TO VERBAL STIMULI. ON EXAMINATION, HEART IS REGULAR IN RATE AND RHYTHM. BILATERAL LUNGS ARE NOTED WITH DIMINISHED LUNG SOUNDS THROUGHOUT. ABDOMEN IS ROUND, SOFT, AND NOTED WITH MILD, LOWER ABDOMINAL PAIN. NORMAL BOWEL SOUNDS NOTED. SHE CONTINUES WITH SOME VAGINAL DISCHARGE THIS MORNING. HER VITALS THIS MORNING ARE 97.8-56-18-100%-137/60. LABS WERE OBTAINED. ABNORMAL LAB VALUES INCLUDE THE FOLLOWING: PLT COUNT 136, CHLORIDE 110, GLUCOSE 123, AST 46, ALT LESS THAN 6, TOTAL PROTEIN 6.2, ALBUMIN 2.3. SHE IS CURRENTLY RECEIVING IV FLAGYL AND IV HYDR ATION. WE WILL CONTINUE WITH CURRENT PLAN OF CARE TODAY. PLANS FOR A COLONOSCOPY TOMORROW. WE WILL START A BOWEL PREP TODAY. OTHERWISE, WE PLAN TO FOLLOW UP WITH AM LABS AND CONTINUE TO MONITOR. - Past Medical Family Social History Past Med/Fam/Surg Hx: No changes since H&P Allergies: Allergies No Known Drug Allergies Allergy (Verified 03/14/19 20:35) - Review of Systems ROS: No change since H&P - Vital Signs and I&O's Vital Signs: Temperature 98.3 F Pulse Rate [Right Brachial] 58 Pulse Rate 79 Respiratory Rate 18 Blood Pressure [Right Arm] 116/50 Blood Pressure [Left Arm] 132/58 Blood Pressure 128/54 O2 Sat by Pulse Oximetry 96 Intake and Output: Intake & Output 03/14/19 03/15/19 03/16/19 03/17/19 11:59 11:59 11:59 11:59 Intake Total 0 / 0 2368 / 2368 240 / 240 Balance 0 / 0 2368 / 2368 240 / 240 - Physical Exam Oriented: Not Oriented Eyes: Normal Ear: Normal Nose: Normal Throat: Normal Respiratory: Diminished Cardiovascular: Normal : Normal Auscultation: Bowel Sounds: Normal Tenderness: Diffuse (soft obese abdomen . only mild diffise tenderness , no rebound or rigidity , BS +) Skin: Normal Musculoskeletal: Normal Psychiatric: Normal Mood Description: Calm Affect: Normal Speech Pattern: Clear, Appropriate - Laboratory and Diagnostics Result Diagrams: 03/16/19 05:26 03/16/19 05:26 Labs: Laboratory WBC 4.7 X10^3/uL (3.6-10.0) 03/16/19 05:26 RBC 4.33 X10^6/uL (3.5-5.4) 03/16/19 05:26 Hgb 12.4 g/dL (12.0-16.0) 03/16/19 05:26 Hct 38.0 % (36.0-47.0) 03/16/19 05:26 MCV 87.7 fL (80.0-100.0) 03/16/19 05:26 MCH 28.6 pg (27.0-34.0) 03/16/19 05:26 MCHC 32.6 g/dL (33.0-35.0) L 03/16/19 05:26 RDW 16.3 % (11.6-16.5) 03/16/19 05:26 Plt Count 136 X10^3/uL (150.0-450.0) L 03/16/19 05:26 MPV 9.3 fL (7.4-11.0) 03/16/19 05:26 Neut % (Auto) 33.9 % (42.0-75.0) L 03/16/19 05:26 Lymph % (Auto) 54.3 % (21.0-51.0) H 03/16/19 05:26 [place] % (Auto) 9.2 % (0.0-13.0) 03/16/19 05:26 Eos % (Auto) 2.1 % (0.9-2.9) 03/16/19 05:26 Baso % (Auto) 0.5 % (0.2-1.0) 03/16/19 05:26 Neut # (Auto) 1.6 x10^3/uL (2.2-4.8) L 03/16/19 05:26 Lymph # (Auto) 2.6 X10^3/uL (1.3-2.9) 03/16/19 05:26 [place] # (Auto) 0.4 x10^3/uL (0.3-0.8) 03/16/19 05:26 Eos # (Auto) 0.1 x10^3/uL (0.0-0.2) 03/16/19 05:26 Baso # (Auto) 0.0 X10^3/uL (0.0-0.1) 03/16/19 05:26 Absolute Nucleated RBC 0.1 /100WBC 03/16/19 05:26 Sodium 145 mmol/L (136-145) 03/16/19 05:26 Corrected Sodium 146 mmol/L (136-145) H 03/16/19 05:26 Potassium 4.4 mmol/L (3.5-5.1) 03/16/19 05:26 Chloride 110 mmol/L (98-107) H 03/16/19 05:26 Carbon Dioxide 29.2 mmol/L (21-32) 03/16/19 05:26 BUN 10 mg/dL (7-18) 03/16/19 05:26 Creatinine 0.71 mg/dL (0.55-1.02) 03/16/19 05:26 Est GFR (MDRD) Af Amer > 60 (>60) 03/16/19 05:26 Est GFR (MDRD) Non-Af > 60 (>60) 03/16/19 05:26 Glucose 123 mg/dL (65-99) H 03/16/19 05:26 Calcium 8.9 mg/dL (8.5-10.1) 03/16/19 05:26 Corrected Calcium 10.3 mg/dL (8.5-10.1) H 03/16/19 05:26 Total Bilirubin 0.40 mg/dL (0.2-1.0) 03/16/19 05:26 AST 46 Units/L (15-37) H 03/16/19 05:26 ALT < 6 Units/L (12-78) L 03/16/19 05:26 Alkaline Phosphatase 75 Units/L (46-116) 03/16/19 05:26 Total Protein 6.2 g/dL (6.4-8.2) L 03/16/19 05:26 Albumin 2.3 g/dL (3.4-5.0) L 03/16/19 05:26 Globulin 3.9 g/dL (2.5-4.5) 03/16/19 05:26 Albumin/Globulin Ratio 0.6 Ratio (1.1-2.1) L 03/16/19 05:26 Specimen Type Catherized urine 03/15/19 16:58 Urine Color Yellow (YELLOW) 03/15/19 16:58 Urine Appearance Slightly hazy (CLEAR) 03/15/19 16:58 Urine pH 8.0 (5.0 - 8.0) 03/15/19 16:58 Ur Specific [place] 1.015 (1.000-1.030) 03/15/19 16:58 Urine Protein Negative (NEGATIVE) 03/15/19 16:58 Urine Glucose (UA) Negative (NEGATIVE) 03/15/19 16:58 Urine Ketones 1+ (NEGATIVE) 03/15/19 16:58 Urine Occult Blood 4+ (NEGATIVE) 03/15/19 16:58 Urine Nitrite Negative (NEGATIVE) 03/15/19 16:58 Urine Bilirubin Negative (NEGATIVE) 03/15/19 16:58 Urine Urobilinogen Normal (NORMAL) 03/15/19 16:58 Ur Leukocyte Esterase 3+ (NEGATIVE) 03/15/19 16:58 Urine RBC 5-10 /HPF (NONE SEEN) 03/15/19 16:58 Urine WBC Tntc /HPF (NONE SEEN) 03/15/19 16:58 Ur Squamous Epith Cells Few /HPF (NEGATIVE) 03/15/19 16:58 Amorphous Sediment Trace /HPF (NEGATIVE) 03/15/19 16:58 Urine Bacteria Trace /HPF (NEGATIVE) 03/15/19 16:58 Ur Culture Indicated? Yes/culture set up 03/15/19 16:58 Stool Description 25g unformed brown 03/15/19 20:50 Stl Occult Blood (IFOB) Negative (NEGATIVE) 03/15/19 20:50 - Plan (1) Recto-vaginal fistula Status: Acute Plan: IV FLUIDS, IV ANTIBIOTICS, BOWEL PREP AND COLONOSCOPY ON SUNDAY
[2019-03-16] MEDS: PriLOSEC PO SCH (20:08)
[2019-03-16] MEDS: TRICOR TAB 145 MG PO SCH (20:08)
[2019-03-16] MEDS: ZOCOR TAB 40 MG PO SCH (20:08)
[2019-03-16] MEDS: ARICEPT TAB 10 MG PO SCH (20:08)
[2019-03-16] MEDS: SNACK - Diabetic Appropriate PO SCH (20:24)
[2019-03-16] MEDS ORDERED: LANTISEPTIC TOP PRN (21:52)
[2019-03-17] MEDS: NS 1000 ML 1,000 ML IV SCH ×2 (00:24→21:37)
[2019-03-17] MEDS: FLAGYL IV PREMIX 500 MG BAG 500 MG/100 ML BAG IV SCH ×4 (03:36→20:07)
[2019-03-17] MEDS: NEURONTIN CAP 400 MG PO SCH ×3 (05:12→21:01)
[2019-03-17] MEDS: SINEMET (PLAIN) 25/250 MG PO SCH ×3 (05:13→21:02)
[2019-03-17 05:51] LABS: BASOPHILS % (AUTO) 0.5 % (0.2-1.0); EOSINOPHILS # (AUTO) 0.1 x10^3/uL (0.0-0.2); EOSINOPHILS % (AUTO) 1.7 % (0.9-2.9); HEMATOCRIT 38.8 % (36.0-47.0); HEMOGLOBIN 12.7 g/dL (12.0-16.0); LYMPHOCYTES % (AUTO) 27.5 % (21.0-51.0); MEAN CORPUSCULAR HEMOGLOBIN 28.6 pg (27.0-34.0); MEAN CORPUSCULAR HGB CONC 32.9 g/dL (33.0-35.0); MEAN PLATELET VOLUME 9.7 fL (7.4-11.0); MONOCYTES # (AUTO) 0.7 x10^3/uL (0.3-0.8); MONOCYTES % (AUTO) 9.5 % (0.0-13.0); NEUTROPHILS # (AUTO) 4.3 x10^3/uL (2.2-4.8); NEUTROPHILS % (AUTO) 60.8 % (42.0-75.0); PLATELET COUNT 153 X10^3/uL (150.0-450.0); RED BLOOD COUNT 4.46 X10^6/uL (3.5-5.4); WHITE BLOOD COUNT 7.1 X10^3/uL (3.6-10.0)
[2019-03-17 06:08] LABS: ALANINE AMINOTRANSFERASE 12 Units/L (12-78); ALBUMIN 2.9 g/dL (3.4-5.0); ALKALINE PHOSPHATASE 73 Units/L (46-116); ASPARTATE AMINO TRANSFERASE 45 Units/L (15-37); BLOOD UREA NITROGEN 7 mg/dL (7-18); CALCIUM 8.9 mg/dL (8.5-10.1); CARBON DIOXIDE 24.4 mmol/L (21-32); CHLORIDE 107 mmol/L (98-107); COR CA(FOR HYPOALB) 9.8 mg/dL (8.5-10.1); COR NA(FOR HYPERGLY) 143 mmol/L (136-145); CREATININE 0.71 mg/dL (0.55-1.02); SODIUM 143 mmol/L (136-145); TOTAL PROTEIN 6.6 g/dL (6.4-8.2); eGFR NON BLACK RACES > 60 (>60)
[2019-03-17] MEDS ORDERED: POTASSIUM CHLORIDE LIQ 20 MEQ UDC PO PRN (06:11)
[2019-03-17] MEDS ORDERED: K-DUR TAB 20 MEQ PO PRN (06:11)
[2019-03-17] MEDS ORDERED: POTASSIUM CHL 60 MEQ/NS 0.45% 500 ML IV PRN (06:11)
[2019-03-17] MEDS ORDERED: KLOR-CON PO PRN (06:11)
[2019-03-17] MEDS ORDERED: POTASSIUM CHL 40 MEQ/NS 0.45% 500 ML IV PRN (06:11)
[2019-03-17] MEDS: K-RIDER 10 MEQ/NS 100 ML 10 MEQ/100 ML BAG IV PRN ×4 (06:30→18:19)
[2019-03-17] MEDS: ALBUMIN HUMAN 25%- 100 ML 100 ML IV SCH (08:42)
[2019-03-17] MEDS: PROVENTIL NEB TX 0.083% 2.5MG/ 3ML NEB SCH ×2 (09:12→21:13)
[2019-03-17] MEDS: PULMICORT NEB TX 0.5 MG NEB SCH ×2 (09:12→21:13)
[2019-03-17] MEDS ORDERED: STERILE WATER IRRIGATION ONE (09:18)
[2019-03-17] MEDS ORDERED: PHARMACY CONSULT - DOSE _____ XX SCH (10:00)
--- NOTE | 2019-03-17 10:38 | OR.GENERIC ---
Post-Op Note Generic - Post-Op Note Operative Report: colonoscopy to the cecum . findings : mild proctitis , diverticulosis .. no neoplasm , IBD or ischemia.. will advance diet and observe .. same ATB . will D/W family future plan ( colostomy if having large vaginal drainage )
--- NOTE | 2019-03-17 11:04 | PCM.PROG ---
Progress Note - Progress Note for Day of Date of Exam: 03/17/19 - Subjective Subjective: WAS ADMITTED FOR TREATMENT OF A RECTO-VAGINAL FISTULA. SHE IS LYING IN BED WITH EYES CLOSED ON MORNING ROUNDS. SHE AWAKENS TO VERBAL STIMULI. ON EXAMINATION, HEART IS REGULAR IN RATE AND RHYTHM. BILATERAL LUNGS ARE NOTED WITH DIMINISHED LUNG SOUNDS THROUGHOUT. ABDOMEN IS ROUND, SOFT, AND NOTED WITH MILD, LOWER ABDOMINAL PAIN. NORMAL BOWEL SOUNDS NOTED. SHE CONTINUES WITH SOME VAGINAL DISCHARGE THIS MORNING. HER VITALS THIS MORNING ARE 98.0-63-20-96%-124/56. LABS WERE OBTAINED. ABNORMAL LAB VALUES INCLUDE THE FOLLOWING: POTASSIUM 3.2, GLUCOSE 115, AST 45, ALBUMIN 2.9. SHE IS CURRENTLY RECEIVING IV FLAGYL AND IV HYDRATION. WE WILL CONTINUE WITH CURRENT PLAN OF CARE TODAY AND ADD CIPRO 400MG IV BID. PLANS FOR A COLONOSCOPY THIS MORNING. WE ARE IN AGREEMENT WITH PLAN. OTHERWISE, WE PLAN TO FOLLOW UP WITH AM LABS AND CONTINUE TO MONITOR. - Past Medical Family Social History Past Med/Fam/Surg Hx: No changes since H&P Allergies: Allergies No Known Drug Allergies Allergy (Verified 03/14/19 20:35) - Review of Systems ROS: No change since H&P - Vital Signs and I&O's Vital Signs: Temperature 98.0 F Pulse Rate [Right Brachial] 63 Pulse Rate 64 Respiratory Rate 20 Blood Pressure [Right Arm] 124/56 Blood Pressure [Left Arm] 132/58 Blood Pressure 128/54 O2 Sat by Pulse Oximetry 97 Intake and Output: Intake & Output 03/14/19 03/15/19 03/16/19 03/17/19 11:59 11:59 11:59 11:59 Intake Total 0 / 0 2368 / 2368 2730 / 2730 Balance 0 / 0 2368 / 2368 2730 / 2730 - Physical Exam Oriented: Not Oriented Eyes: Normal Ear: Normal Nose: Normal Throat: Normal Respiratory: Diminished Cardiovascular: Normal : Normal Auscultation: Bowel Sounds: Normal Tenderness: Diffuse (soft obese abdomen . only mild diffise tenderness , no rebound or rigidity , BS +) Skin: Normal Musculoskeletal: Normal Psychiatric: Normal Mood Description: Calm Affect: Normal Speech Pattern: Clear, Appropriate - Laboratory and Diagnostics Result Diagrams: 03/17/19 05:10 03/17/19 05:10 Labs: 03/15/19 16:58 Urine,Catheterized Urine Culture - Final Laboratory WBC 7.1 X10^3/uL (3.6-10.0) 03/17/19 05:10 RBC 4.46 X10^6/uL (3.5-5.4) 03/17/19 05:10 Hgb 12.7 g/dL (12.0-16.0) 03/17/19 05:10 Hct 38.8 % (36.0-47.0) 03/17/19 05:10 MCV 87.0 fL (80.0-100.0) 03/17/19 05:10 MCH 28.6 pg (27.0-34.0) 03/17/19 05:10 MCHC 32.9 g/dL (33.0-35.0) L 03/17/19 05:10 RDW 16.0 % (11.6-16.5) 03/17/19 05:10 Plt Count 153 X10^3/uL (150.0-450.0) 03/17/19 05:10 MPV 9.7 fL (7.4-11.0) 03/17/19 05:10 Neut % (Auto) 60.8 % (42.0-75.0) 03/17/19 05:10 Lymph % (Auto) 27.5 % (21.0-51.0) 03/17/19 05:10 [place] % (Auto) 9.5 % (0.0-13.0) 03/17/19 05:10 Eos % (Auto) 1.7 % (0.9-2.9) 03/17/19 05:10 Baso % (Auto) 0.5 % (0.2-1.0) 03/17/19 05:10 Neut # (Auto) 4.3 x10^3/uL (2.2-4.8) 03/17/19 05:10 Lymph # (Auto) 2.0 X10^3/uL (1.3-2.9) 03/17/19 05:10 [place] # (Auto) 0.7 x10^3/uL (0.3-0.8) 03/17/19 05:10 Eos # (Auto) 0.1 x10^3/uL (0.0-0.2) 03/17/19 05:10 Baso # (Auto) 0.0 X10^3/uL (0.0-0.1) 03/17/19 05:10 Absolute Nucleated RBC 0.0 /100WBC 03/17/19 05:10 Sodium 143 mmol/L (136-145) 03/17/19 05:10 Corrected Sodium 143 mmol/L (136-145) 03/17/19 05:10 Potassium 3.2 mmol/L (3.5-5.1) L 03/17/19 05:10 Chloride 107 mmol/L (98-107) 03/17/19 05:10 Carbon Dioxide 24.4 mmol/L (21-32) 03/17/19 05:10 BUN 7 mg/dL (7-18) 03/17/19 05:10 Creatinine 0.71 mg/dL (0.55-1.02) 03/17/19 05:10 Est GFR (MDRD) Af Amer > 60 (>60) 03/17/19 05:10 Est GFR (MDRD) Non-Af > 60 (>60) 03/17/19 05:10 Glucose 115 mg/dL (65-99) H 03/17/19 05:10 Calcium 8.9 mg/dL (8.5-10.1) 03/17/19 05:10 Corrected Calcium 9.8 mg/dL (8.5-10.1) 03/17/19 05:10 Magnesium 1.7 mg/dL (1.7-2.9) 03/17/19 05:10 Total Bilirubin 0.60 mg/dL (0.2-1.0) 03/17/19 05:10 AST 45 Units/L (15-37) H 03/17/19 05:10 ALT 12 Units/L (12-78) 03/17/19 05:10 Alkaline Phosphatase 73 Units/L (46-116) 03/17/19 05:10 Total Protein 6.6 g/dL (6.4-8.2) 03/17/19 05:10 Albumin 2.9 g/dL (3.4-5.0) L 03/17/19 05:10 Globulin 3.7 g/dL (2.5-4.5) 03/17/19 05:10 Albumin/Globulin Ratio 0.8 Ratio (1.1-2.1) L 03/17/19 05:10 Specimen Type Catherized urine 03/15/19 16:58 Urine Color Yellow (YELLOW) 03/15/19 16:58 Urine Appearance Slightly hazy (CLEAR) 03/15/19 16:58 Urine pH 8.0 (5.0 - 8.0) 03/15/19 16:58 Ur Specific [place] 1.015 (1.000-1.030) 03/15/19 16:58 Urine Protein Negative (NEGATIVE) 03/15/19 16:58 Urine Glucose (UA) Negative (NEGATIVE) 03/15/19 16:58 Urine Ketones 1+ (NEGATIVE) 03/15/19 16:58 Urine Occult Blood 4+ (NEGATIVE) 03/15/19 16:58 Urine Nitrite Negative (NEGATIVE) 03/15/19 16:58 Urine Bilirubin Negative (NEGATIVE) 03/15/19 16:58 Urine Urobilinogen Normal (NORMAL) 03/15/19 16:58 Ur Leukocyte Esterase 3+ (NEGATIVE) 03/15/19 16:58 Urine RBC 5-10 /HPF (NONE SEEN) 03/15/19 16:58 Urine WBC Tntc /HPF (NONE SEEN) 03/15/19 16:58 Ur Squamous Epith Cells Few /HPF (NEGATIVE) 03/15/19 16:58 Amorphous Sediment Trace /HPF (NEGATIVE) 03/15/19 16:58 Urine Bacteria Trace /HPF (NEGATIVE) 03/15/19 16:58 Ur Culture Indicated? Yes/culture set up 03/15/19 16:58 Stool Description 25g unformed brown 03/15/19 20:50 Stl Occult Blood (IFOB) Negative (NEGATIVE) 03/15/19 20:50 - Plan (1) Recto-vaginal fistula Status: Acute Plan: IV FLUIDS, IV ANTIBIOTICS, BOWEL PREP AND COLONOSCOPY TODAY
[2019-03-17] MEDS ORDERED: ZOLOFT ONE (11:35)
[2019-03-17] MEDS: DEPAKOTE SPRINKLE PO SCH ×2 (11:41→20:05)
[2019-03-17] MEDS: INDERAL TAB 10 MG PO SCH ×2 (11:45→20:07)
[2019-03-17] MEDS: TAB-A-VITE PO SCH (11:45)
[2019-03-17] MEDS: ZOLOFT PO SCH (11:46)
[2019-03-17] MEDS: SYNTHROID 75 mcg TAB PO SCH (11:46)
[2019-03-17] MEDS: HEMOCYTE-PLUS PO SCH (11:46)
[2019-03-17] MEDS: KLONOPIN TAB 0.5 MG PO SCH ×2 (11:49→20:05)
[2019-03-17] MEDS: OSCAL+D or CALTRATE+D PO SCH (11:49)
[2019-03-17] MEDS: XALATAN OP SCH (11:51)
[2019-03-17] MEDS: FLONASE NASAL SPRAY ENOSTRIL SCH (11:51)
[2019-03-17] MEDS: PATIENT'S HOME MEDICATION (Memantine [Namenda Xr] 28 MG) PO SCH (12:12)
[2019-03-17] MEDS: CIPRO IV 400 MG PREMIX* 400 MG/200 ML IV.SOLN. IV SCH ×2 (12:13→22:19)
[2019-03-17] MEDS: DIPRIVAN VIAL 20 ML ONE ×2 (12:14→12:15)
[2019-03-17] MEDS: LOVENOX INJ 40 MG SYR SC SCH (13:41)
[2019-03-17] MEDS: MAGNESIUM SULFATE 1 GRAM/100 mL PREMIX 1 GM/100 ML BAG IV PRN ×2 (19:50→23:33)
[2019-03-17] MEDS: TRICOR TAB 145 MG PO SCH (20:05)
[2019-03-17] MEDS: ARICEPT TAB 10 MG PO SCH (20:05)
[2019-03-17] MEDS: PriLOSEC PO SCH (20:05)
[2019-03-17] MEDS: ZOCOR TAB 40 MG PO SCH (20:06)
[2019-03-17] MEDS: SNACK - Diabetic Appropriate PO SCH (20:14)
[2019-03-17] MEDS: MICRO K EXTEN CAP 10 MEQ PO PRN (22:11)
[2019-03-18] MEDS: FLAGYL IV PREMIX 500 MG BAG 500 MG/100 ML BAG IV SCH ×2 (02:12→08:58)
[2019-03-18 05:25] LABS: BASOPHILS % (AUTO) 0.5 % (0.2-1.0); EOSINOPHILS # (AUTO) 0.2 x10^3/uL (0.0-0.2); EOSINOPHILS % (AUTO) 3.5 % (0.9-2.9); HEMATOCRIT 38.3 % (36.0-47.0); HEMOGLOBIN 12.5 g/dL (12.0-16.0); LYMPHOCYTES # (AUTO) 2.5 X10^3/uL (1.3-2.9); LYMPHOCYTES % (AUTO) 42.2 % (21.0-51.0); MEAN CORPUSCULAR HEMOGLOBIN 28.7 pg (27.0-34.0); MEAN CORPUSCULAR HGB CONC 32.7 g/dL (33.0-35.0); MEAN CORPUSCULAR VOLUME 87.8 fL (80.0-100.0); MEAN PLATELET VOLUME 9.5 fL (7.4-11.0); MONOCYTES # (AUTO) 0.7 x10^3/uL (0.3-0.8); MONOCYTES % (AUTO) 11.7 % (0.0-13.0); NEUTROPHILS # (AUTO) 2.5 x10^3/uL (2.2-4.8); NEUTROPHILS % (AUTO) 42.1 % (42.0-75.0); PLATELET COUNT 138 X10^3/uL (150.0-450.0); RED BLOOD COUNT 4.37 X10^6/uL (3.5-5.4); RED CELL DISTRIBUTION WIDTH 16.1 % (11.6-16.5)
[2019-03-18 05:35] LABS: ALANINE AMINOTRANSFERASE < 6 Units/L (12-78); ALKALINE PHOSPHATASE 71 Units/L (46-116); ASPARTATE AMINO TRANSFERASE 32 Units/L (15-37); BLOOD UREA NITROGEN 7 mg/dL (7-18); CALCIUM 8.7 mg/dL (8.5-10.1); CARBON DIOXIDE 26.3 mmol/L (21-32); CHLORIDE 103 mmol/L (98-107); COR CA(FOR HYPOALB) 9.5 mg/dL (8.5-10.1); COR NA(FOR HYPERGLY) 140 mmol/L (136-145); CREATININE 0.71 mg/dL (0.55-1.02); MAGNESIUM 2.1 mg/dL (1.7-2.9); SODIUM 138 mmol/L (136-145); TOTAL PROTEIN 6.6 g/dL (6.4-8.2); eGFR NON BLACK RACES > 60 (>60)
[2019-03-18] MEDS: SINEMET (PLAIN) 25/250 MG PO SCH (05:41)
[2019-03-18] MEDS: NEURONTIN CAP 400 MG PO SCH (05:41)
[2019-03-18] MEDS: NS 1000 ML 1,000 ML IV SCH (05:41)
[2019-03-18] MEDS: MICRO K EXTEN CAP 10 MEQ PO PRN (05:56)
[2019-03-18] MEDS ORDERED: ZOLOFT ONE (08:04)
[2019-03-18] MEDS: PULMICORT NEB TX 0.5 MG NEB SCH (08:35)
[2019-03-18] MEDS: PROVENTIL NEB TX 0.083% 2.5MG/ 3ML NEB SCH (08:35)
[2019-03-18] MEDS: ALBUMIN HUMAN 25%- 100 ML 100 ML IV SCH (08:57)
[2019-03-18] MEDS: CIPRO IV 400 MG PREMIX* 400 MG/200 ML IV.SOLN. IV SCH (08:57)
[2019-03-18] MEDS: KLONOPIN TAB 0.5 MG PO SCH (08:58)
[2019-03-18] MEDS: OSCAL+D or CALTRATE+D PO SCH (08:58)
[2019-03-18] MEDS: ZOLOFT PO SCH (08:58)
[2019-03-18] MEDS: LOVENOX INJ 40 MG SYR SC SCH (08:58)
[2019-03-18] MEDS: SYNTHROID 75 mcg TAB PO SCH (08:58)
[2019-03-18] MEDS: DEPAKOTE SPRINKLE PO SCH (08:58)
[2019-03-18] MEDS: HEMOCYTE-PLUS PO SCH (08:58)
[2019-03-18] MEDS: TAB-A-VITE PO SCH (08:59)
[2019-03-18] MEDS: INDERAL TAB 10 MG PO SCH (09:00)
[2019-03-18] MEDS: XALATAN OP SCH (11:44)
[2019-03-18] MEDS: FLONASE NASAL SPRAY ENOSTRIL SCH (11:50)
--- NOTE | 2019-03-18 12:09 | RAD ---
HISTORY: Rectovaginal fistula surgery. Study: Single-view chest Comparison: 03/15/2019. Findings: Trachea is midline. Heart size is normal. Although there are still increased interstitial markings present involving both lungs, significant improvement in aeration is noted compared to the prior study. This may represent reduction in edema or interstitial pneumonia. No consolidation, pleural fluid or pneumothorax is seen. Osseous structures are intact. IMPRESSION: Significant interval improvement in aeration in the lungs bilaterally. Please see above. Reported By:
[2019-03-18 13:25] VITALS: BP 115/53
== END 2019-03-18 13:50 | DRG 395 ==
LOC: MED/SURG 14:29 → ER 14:29 → MED/SURG 20:05
PROVIDERS: ADMIT Internal Medicine; ATTEND Internal Medicine
DX: E78.2 Mixed hyperlipidemia; K62.89 Other specified diseases of anus and rectum; I25.10 Atherosclerotic heart disease of native coronary artery without angina pectoris; E03.8 Other specified hypothyroidism; E11.65 Type 2 diabetes mellitus with hyperglycemia; K57.90 Diverticulosis of intestine, part unspecified, without perforation or abscess without bleeding; K21.9 Gastro-esophageal reflux disease without esophagitis; I10 Essential (primary) hypertension; R97.0 Elevated carcinoembryonic antigen [CEA]; N20.0 Calculus of kidney; G40.909 Epilepsy, unspecified, not intractable, without status epilepticus; J44.9 Chronic obstructive pulmonary disease, unspecified; K64.9 Unspecified hemorrhoids; N82.3 Fistula of vagina to large intestine; F41.8 Other specified anxiety disorders; Z87.440 Personal history of urinary (tract) infections
CPT/HCPCS: 36415; 71010; 71045; 74177; 80053; 81001; 82270; 82378; 83735; 84132; 85025; 87086; 94640; 94760; 96365; 99100; 99284; A4216; A4217; A4222; P9047; S0030; G0378; J0744; J1650; J2704; J3475; J3480; J7030; J7613; J7626

== ENCOUNTER 2020-05-27 11:02 | Inpatient (IN) ==
[2020-05-27] MEDS ORDERED: TUSSIONEX PENNKINETIC SUSP PO SCH (13:58)
[2020-05-27] MEDS: VSL#3 PO SCH (14:30)
[2020-05-27] MEDS: LEVAQUIN PREMIX IV 500 MG 500 MG/100 ML BAG IV SCH (14:30)
[2020-05-27] MEDS: ROBITUSSIN DM PO SCH ×3 (14:30→20:45)
[2020-05-27] MEDS: NS 1/2 1000 ML IV 1,000 ML IV SCH (14:30)
[2020-05-27] MEDS ORDERED: NS 1/2 1000 ML IV 1,000 ML IV ONE (14:39)
[2020-05-27 14:45] LABS: BASOPHILS % (AUTO) 0.3 % (0.2-1.0); EOSINOPHILS % (AUTO) 0.6 % (0.9-2.9); HEMATOCRIT 38.2 % (36.0-47.0); HEMOGLOBIN 12.4 g/dL (12.0-16.0); LYMPHOCYTES # (AUTO) 2.5 X10^3/uL (1.3-2.9); LYMPHOCYTES % (AUTO) 47.8 % (21.0-51.0); MEAN CORPUSCULAR HEMOGLOBIN 26.9 pg (27.0-34.0); MEAN CORPUSCULAR HGB CONC 32.4 g/dL (33.0-35.0); MEAN PLATELET VOLUME 10.4 fL (7.4-11.0); MONOCYTES # (AUTO) 0.4 x10^3/uL (0.3-0.8); MONOCYTES % (AUTO) 8.7 % (0.0-13.0); NEUTROPHILS # (AUTO) 2.2 x10^3/uL (2.2-4.8); NEUTROPHILS % (AUTO) 42.6 % (42.0-75.0); PLATELET COUNT 127 X10^3/uL (150.0-450.0); RED CELL DISTRIBUTION WIDTH 15.3 % (11.6-16.5); WHITE BLOOD COUNT 5.2 X10^3/uL (3.6-10.0)
[2020-05-27] MEDS ORDERED: PHARMACY CONSULT LTC MEDICATIONS XX SCH (15:00)
[2020-05-27 15:04] LABS: ALANINE AMINOTRANSFERASE 12 Units/L (12-78); ALBUMIN 2.4 g/dL (3.4-5.0); ALKALINE PHOSPHATASE 77 Units/L (46-116); ASPARTATE AMINO TRANSFERASE 96 Units/L (15-37); BLOOD UREA NITROGEN 31 mg/dL (7-18); CALCIUM 8.6 mg/dL (8.5-10.1); CARBON DIOXIDE 24.6 mmol/L (21-32); CHLORIDE 103 mmol/L (98-107); COR CA(FOR HYPOALB) 9.9 mg/dL (8.5-10.1); COR NA(FOR HYPERGLY) 138 mmol/L (136-145); CREATININE 1.06 mg/dL (0.55-1.02); SODIUM 135 mmol/L (136-145); TOTAL PROTEIN 6.7 g/dL (6.4-8.2); eGFR NON BLACK RACES 54 (>60)
[2020-05-27] MEDS: DUONEB 0.5 MG/3 MG (3 mL) NEB SCH ×3 (15:48→21:20)
[2020-05-27 15:57] LABS: ABG BASE EXCESS 0.5 mmol/L (-2.0-2.0); ABG HCO3 24.6 mmol/L (22-26)
[2020-05-27] MEDS ORDERED: REMDESIVIR (INVESTIGATIONAL DRUG GS-5734) 200 MG in NS 250 ML IV 250 ML IV ONE (17:59)
[2020-05-27] MEDS ORDERED: NS 250 ML IV 250 ML IV ONE (19:50)
[2020-05-27] MEDS: LOVENOX INJ 40 MG SYR SC SCH (20:45)
[2020-05-27] MEDS: TUSSIONEX PENNKINETIC SUSP PO SCH (20:49)
[2020-05-27] MEDS: PULMICORT NEB TX 0.5 MG NEB SCH (21:20)
[2020-05-27] MEDS: HumuLIN R SUBCUT PRN (21:45)
[2020-05-27 21:48] LABS: CRYPTOSPORIDIUM PARVUM ANTIGEN NEGATIVE (NEGATIVE); GIARDIA LAMBLIA ANTIGEN NEGATIVE (NEGATIVE)
[2020-05-27] MEDS ORDERED: HumuLIN R ONE (22:04)
[2020-05-28] MEDS ORDERED: TYLENOL 325 MG TAB PO PRN (00:21)
[2020-05-28] MEDS ORDERED: TYLENOL 325 MG TAB PO ONE (00:24)
[2020-05-28] MEDS: NEURONTIN TAB 600 MG PO SCH ×3 (02:13→21:30)
[2020-05-28] MEDS ORDERED: NS 1/2 1000 ML IV 1,000 ML IV ONE ×2 (03:21→21:52)
[2020-05-28] MEDS: NS 1/2 1000 ML IV 1,000 ML IV SCH ×2 (04:15→21:58)
[2020-05-28] MEDS: HumuLIN R SUBCUT PRN ×3 (05:45→21:45)
[2020-05-28 05:50] LABS: BASOPHILS % (AUTO) 0.3 % (0.2-1.0); EOSINOPHILS % (AUTO) 0.8 % (0.9-2.9); HEMATOCRIT 35.7 % (36.0-47.0); HEMOGLOBIN 11.6 g/dL (12.0-16.0); LYMPHOCYTES # (AUTO) 2.3 X10^3/uL (1.3-2.9); LYMPHOCYTES % (AUTO) 43.3 % (21.0-51.0); MEAN CORPUSCULAR HEMOGLOBIN 27.2 pg (27.0-34.0); MEAN CORPUSCULAR HGB CONC 32.6 g/dL (33.0-35.0); MEAN CORPUSCULAR VOLUME 83.3 fL (80.0-100.0); MEAN PLATELET VOLUME 10.8 fL (7.4-11.0); MONOCYTES # (AUTO) 0.5 x10^3/uL (0.3-0.8); MONOCYTES % (AUTO) 10.1 % (0.0-13.0); NEUTROPHILS # (AUTO) 2.5 x10^3/uL (2.2-4.8); NEUTROPHILS % (AUTO) 45.5 % (42.0-75.0); PLATELET COUNT 123 X10^3/uL (150.0-450.0); RED BLOOD COUNT 4.29 X10^6/uL (3.5-5.4); WHITE BLOOD COUNT 5.4 X10^3/uL (3.6-10.0)
[2020-05-28 06:07] LABS: ALANINE AMINOTRANSFERASE 29 Units/L (12-78); ALBUMIN 2.3 g/dL (3.4-5.0); ALKALINE PHOSPHATASE 70 Units/L (46-116); ASPARTATE AMINO TRANSFERASE 76 Units/L (15-37); BLOOD UREA NITROGEN 22 mg/dL (7-18); CALCIUM 8.4 mg/dL (8.5-10.1); CARBON DIOXIDE 25.6 mmol/L (21-32); CHLORIDE 103 mmol/L (98-107); COR CA(FOR HYPOALB) 9.8 mg/dL (8.5-10.1); COR NA(FOR HYPERGLY) 138 mmol/L (136-145); CREATININE 0.85 mg/dL (0.55-1.02); SODIUM 136 mmol/L (136-145); TOTAL PROTEIN 6.5 g/dL (6.4-8.2); eGFR NON BLACK RACES > 60 (>60)
[2020-05-28] MEDS ORDERED: ACTEMRA 400 MG in NS 100 ML IV 80 ML IV SCH (09:00)
[2020-05-28] MEDS: LEVAQUIN PREMIX IV 500 MG 500 MG/100 ML BAG IV SCH (09:00)
[2020-05-28] MEDS: TUSSIONEX PENNKINETIC SUSP PO SCH ×2 (09:30→21:30)
[2020-05-28] MEDS: ROBITUSSIN DM PO SCH ×4 (09:30→21:30)
[2020-05-28] MEDS: VSL#3 PO SCH (09:30)
[2020-05-28] MEDS: PULMICORT NEB TX 0.5 MG NEB SCH ×2 (09:35→21:00)
[2020-05-28] MEDS: DUONEB 0.5 MG/3 MG (3 mL) NEB SCH ×4 (09:35→21:00)
[2020-05-28 10:36] VITALS: BMI 40.3
[2020-05-28] MEDS: REMDESIVIR (INVESTIGATIONAL DRUG GS-5734) 100 MG in NS 250 ML IV 250 ML IV SCH (11:37)
[2020-05-28] MEDS ORDERED: ULTRAM PO PRN (13:03)
--- NOTE | 2020-05-28 13:03 | DR.H&P ---
H&P - History & Physical for Day of: H&P Date: 05/27/20 - Chief Complaint Chief Complaint: FEVER, WEAKNESS, COUGH - History of Present Illness History of Present Illness: IS A 74 YEAR OLD PATIENT OF OURS. SHE IS A RESIDENT OF [facility]. ASSISTED STAFF REPORTS THAT PATIENT HAS HAD FEVER, WEAKNESS, AND COUGH X 2 DAYS. OUTPATIENT CHEST XRAY WAS OBTAINED AND REVEALED: Multifocal ground-glass and alveolar infiltrates as described most consistent with multifocal pneumonia. COVID-19 not excluded. SHE WAS SWABBED FOR COVID-19. IT WAS POSITIVE. SHE WAS ADMITTED TO THE HOSPITAL FOR FURTHER EVALUATION AND TREATMENT OF COVID-19 AND MULTIFOCAL PNEUMONIA. HER PAST MEDICAL HISTORY INCLUDES: CVA, DEMENTIA, SEIZURES, CAD, HYPERLIPIDEMIA, HTN, COPD, CHRONIC BRONCHITIS, GERD, DYSPHAGIA, FREQUENT UTIs, URINARY INCONTINENCE, O STEOARTHRITIS, DIABETES MELLITIS II. ON ARRIVAL TO THE HOSPITAL, VITALS WERE: 98.7-60-20-97%-137/62. LABS WERE OBTAINED. ABNORMAL LAB VALUES INCLUDE THE FOLLOWING: PLT COUNT 127, SODIUM 135, BUN 31, CREATININE 1.06, GLUCOSE 239, FERRITIN 605, AST 96, CRP 69.70, ALBUMIN 2.4. ABG REVEALED: PH 7.430, PC02 37.0, P02 68.0, HC03 24.6, 02 SATURATION 94.0, BASE EXCESS 0.5, FI02 28.0. STOOL STUDIES WERE OBTAINED DUE TO REPORTS OF DIARRHEA. SHE IS POSITIVE FOR WHITE CELLS. BLOOD AND STOOL CULTURES WERE SET UP. SHE WAS STARTED ON 1/2NS AT 75 ML/HR, REMDESIVIR 200MG IV X 1 DOSE, THEN 100 MG IV DAILY, ACTEMRA 400MG IV X 1 DOSE, HUMULIN R SLIDING SCALE, DUONEBS QID, PULMICORT BID, TUSSIONEX 5ML PO Q12H, LOVENOX 40MG SC HS, ROBITUSSIN DM 10ML PO QID, HUMULIN R SLIDING SCALE, LEVAQUIN 500MG IV DAILY, SOLU-MEDROL 40MG IV Q8H. WE WILL REVIEW HER HOME MEDICATIONS. OTHERWISE, WE WILL FOLLOW UP WITH AM LABS AND CHEST XRAY AND CONTINUE TO MONITOR. - Past Medical History Past Medical History: Coronary Artery Disease, Hypertension, Dyslipidemia, Diabetes, Dementia, Depression, Anxiety, Hypothyroidism, Seizures, COPD, GERD, Arthritis - Past Surgical History Surgical History: Unknown - Social History Does patient currently use any type of tobacco product: No Have you used tobacco products in the last 12 months: No Type of Tobacco Use: None Does any household member use tobacco: No Alcohol Use: None Drug Use: None - Medications Home Medications: No Known Drug Allergies Allergy (Verified 06/27/19 10:09) CONTINUE taking the following medications furosemide 20 mg PO DAILY 05/27/20 [History] insulin detemir U-100 [Levemir U-100 Insulin] 5 unit SUBCUT HS 05/27/20 [History] valproic acid (as sodium salt) 250 mg PO BID 05/27/20 [History] - Review of Systems Constitutional: Fever, Chills, Weakness Eyes: No Symptoms Reported ENT: No Symptoms Reported Respiratory: Cough, Shortness of Breath, Wheezing Cardiovascular: No Symptoms Reported Gastrointestinal: Diarrhea Genitourinary: No Symptoms Reported Musculoskeletal: No Symptoms Reported Skin: No Symptoms Reported Neurological: Weakness - Physical Exam Vital Signs: Temperature 99.8 F Pulse Rate [Right Brachial] 67 Pulse Rate 70 Respiratory Rate 22 Blood Pressure [Right Arm] 126/63 Blood Pressure [Left Arm] 154/78 Blood Pressure 130/64 O2 Sat by Pulse Oximetry 93 Oriented: Not Oriented Eyes: Normal Ear: Normal Nose: Normal Throat: Normal Respiratory: Wheezes Throughout Cardiovascular: Normal : Normal Auscultation: Bowel Sounds: Normal Palpation: Normal Tenderness: Normal Skin: Normal Musculoskeletal: Normal Psychiatric: Normal Mood Description: Calm Affect: Normal Speech Pattern: Clear - Assessment/Plan (1) COVID-19 Status: Acute Plan: ADMIT, 1/2NS AT 75 ML/HR, REMDESIVIR 200MG IV X 1 DOSE, THEN 100 MG IV DAILY, ACTEMRA 400MG IV X 1 DOSE, HUMULIN R SLIDING SCALE, DUONEBS QID, PULMICORT BID, TUSSIONEX 5ML PO Q12H, LOVENOX 40MG SC HS, ROBITUSSIN DM 10ML PO QID, HUMULIN R SLIDING SCALE, LEVAQUIN 500MG IV DAILY, SOLU-MEDROL 40MG IV Q8H (2) Multifocal pneumonia Status: Acute - Allergies Allergies/Adverse Reactions: Allergies Allergy/AdvReac Type Severity Reaction Status Date / Time No Known Drug Allergies Allergy Verified 06/27/19 10:09
[2020-05-28] MEDS ORDERED: KLONOPIN TAB 0.5 MG ONE (13:28)
[2020-05-28] MEDS ORDERED: ZOLOFT PO ONE (13:28)
[2020-05-28] MEDS ORDERED: COLACE CAP 100 MG PO ONE (13:28)
[2020-05-28] MEDS ORDERED: LASIX ONE (13:28)
[2020-05-28] MEDS ORDERED: SINEMET (PLAIN) 25/100 MG PO ONE (13:29)
[2020-05-28] MEDS ORDERED: NEURONTIN TAB 600 MG ONE (13:29)
[2020-05-28] MEDS ORDERED: DEPAKOTE D.R. TAB PO ONE (13:36)
[2020-05-28] MEDS ORDERED: KLONOPIN TAB 0.5 MG PO SCH (14:00)
[2020-05-28] MEDS ORDERED: DEPAKOTE D.R. TAB PO SCH ×2 (14:00→21:00)
[2020-05-28] MEDS: COLACE CAP 100 MG PO SCH ×2 (14:05→21:30)
[2020-05-28] MEDS: LASIX PO SCH (14:05)
[2020-05-28] MEDS: ZOLOFT PO SCH (14:06)
[2020-05-28] MEDS: SINEMET (PLAIN) 25/100 MG PO SCH ×2 (14:09→21:30)
[2020-05-28] MEDS: PLAQUENIL PO SCH ×2 (14:12→21:30)
[2020-05-28] MEDS: SOLU-Medrol 40 MG VIAL IVP SCH ×2 (14:26→21:30)
[2020-05-28] MEDS: SYNTHROID 75 mcg TAB PO SCH (14:27)
[2020-05-28] MEDS: HEMOCYTE-PLUS PO SCH (14:47)
[2020-05-28] MEDS: CITRACAL + VITAMIN D PO SCH (14:47)
[2020-05-28] MEDS: FLONASE NASAL SPRAY ENOSTRIL SCH (14:48)
[2020-05-28] MEDS: TAB-A-VITE PO SCH (14:48)
[2020-05-28] MEDS: INDERAL TAB 10 MG PO SCH ×2 (14:49→21:30)
[2020-05-28] MEDS: XALATAN OP SCH (15:04)
[2020-05-28] MEDS: SNACK - Diabetic Appropriate PO SCH (19:45)
[2020-05-28] MEDS ORDERED: SNACK - Diabetic Appropriate PO SCH (20:00)
[2020-05-28] MEDS ORDERED: SEROquel TAB 25 mg PO SCH (21:00)
[2020-05-28] MEDS: LEVEMIR SC SCH (21:30)
[2020-05-28] MEDS: ZOCOR TAB 40 MG PO SCH (21:30)
[2020-05-28] MEDS: ARICEPT TAB 10 MG PO SCH (21:30)
[2020-05-28] MEDS: TRICOR TAB 145 MG PO SCH (21:30)
[2020-05-28] MEDS: KLONOPIN TAB 0.5 MG PO SCH (21:30)
[2020-05-28] MEDS: LOVENOX INJ 40 MG SYR SC SCH (21:30)
[2020-05-28] MEDS: PriLOSEC PO SCH (21:30)
[2020-05-28] MEDS: PATIENT'S HOME MEDICATION PO SCH (22:03)
[2020-05-29] MEDS ORDERED: BUTT CREAM (COMPOUND) ONE (00:17)
[2020-05-29] MEDS: BUTT CREAM (COMPOUND) TOP PRN ×2 (01:15→22:00)
[2020-05-29] MEDS: HumuLIN R SUBCUT PRN ×3 (05:47→21:55)
[2020-05-29] MEDS ORDERED: K-DUR TAB 20 MEQ PO ONE (06:17)
[2020-05-29] MEDS: NEURONTIN TAB 600 MG PO SCH ×3 (06:30→21:55)
[2020-05-29] MEDS: SINEMET (PLAIN) 25/100 MG PO SCH ×3 (06:30→21:55)
[2020-05-29] MEDS: SOLU-Medrol 40 MG VIAL IVP SCH ×3 (06:31→21:55)
--- NOTE | 2020-05-29 06:34 | RAD ---
HISTORYSOB COPDSTUDYAP [id number] cardiac enlargement. There is slight improvement in aerati on of the left lung with persistent diffuse infiltrates. There is increasing opacity of the right upp er lobe. No complicating pneumothorax or developing pleural fluid is evident.IMPRESSIONSlight apparen t improvement in diffuse left-sided infiltrate with increasing airspace consolidation right upper lob e.Electronically signed by: LOY ANDRADE (May 29, 2020 06:33:21)
[2020-05-29] MEDS ORDERED: ZOLOFT PO ONE (09:21)
[2020-05-29] MEDS: CITRACAL + VITAMIN D PO SCH (09:50)
[2020-05-29] MEDS: NS 1/2 1000 ML IV 1,000 ML IV SCH ×2 (09:50→21:57)
[2020-05-29] MEDS: COLACE CAP 100 MG PO SCH ×2 (09:51→21:49)
[2020-05-29] MEDS: FLONASE NASAL SPRAY ENOSTRIL SCH (09:52)
[2020-05-29] MEDS: INDERAL TAB 10 MG PO SCH ×2 (09:52→21:50)
[2020-05-29] MEDS: HEMOCYTE-PLUS PO SCH (09:52)
[2020-05-29] MEDS: LASIX PO SCH (09:53)
[2020-05-29] MEDS: NAMENDA TAB 10 MG PO SCH (09:53)
[2020-05-29] MEDS: LEVAQUIN PREMIX IV 500 MG 500 MG/100 ML BAG IV SCH (09:53)
[2020-05-29] MEDS: PATIENT'S HOME MEDICATION PO SCH ×2 (09:54→21:57)
[2020-05-29] MEDS: ROBITUSSIN DM PO SCH ×4 (09:55→21:57)
[2020-05-29] MEDS: PLAQUENIL PO SCH ×2 (09:55→21:56)
[2020-05-29] MEDS: SYNTHROID 75 mcg TAB PO SCH (09:55)
[2020-05-29] MEDS: TAB-A-VITE PO SCH (09:56)
[2020-05-29] MEDS: TUSSIONEX PENNKINETIC SUSP PO SCH ×2 (09:56→21:56)
--- NOTE | 2020-05-29 09:56 | PCM.PROG ---
Progress Note - Progress Note for Day of Date of Exam: 05/29/20 - Subjective Subjective: IS BEING TREATED FOR COVID-19 AND PNEUMONIA. TODAY, SHE IS ALERT, LYING IN BED ON MORNING ROUNDS. SHE CONTINUES TO BE DISORIENTED AND IS ALSO AGITATED THIS MORNING. STAFF REPORTS THAT SHE CONTINUES WITH COUGH AND WEAKNESS. ON EXAMINATION, HEART IS REGULAR IN RATE AND RHYTHM. BILATERAL LUNGS ARE NOTED WITH SCATTERED WHEEZING THROUGHOUT. ABDOMEN IS ROUND, SOFT, AND NON- TENDER. NORMAL BOWEL SOUNDS ARE NOTED IN ALL QUADRANTS. HER VITALS THIS MORNING ARE: 98.2-63-20-93%[place]-116/76. SHE REFUSED MORNING LABS. A CHEST XRAY WAS OBTAINED THIS MORNING AND REVEALED: Slight apparent improvement in diffuse left- sided infiltrate with increasing airspace consolidation right upper lobe. SHE IS CURRENTLY RECEIVING 1/2NS AT 75 ML/HR, REMDESIVIR 100 MG IV DAILY, HUMULIN R SLIDING SCALE, DUONEBS QID, PULMICORT BID, TUSSIONEX 5ML PO Q12H, LOVENOX 40MG SC HS, ROBITUSSIN DM 10ML PO QID, HUMULIN R SLIDING SCALE, LEVAQUIN 500MG IV DAILY, SOLU-MEDROL 40MG IV Q8H. WE WILL CONTINUE WITH CURRENT PLAN OF CARE TODAY. OTHERWISE, WE PLAN TO FOLLOW UP WITH AM LABS AND CHEST XRAY AND CONTINUE TO MONITOR. - Past Medical Family Social History Past Med/Fam/Surg Hx: No changes since H&P Allergies: Allergies No Known Drug Allergies Allergy (Verified 06/27/19 10:09) - Review of Systems ROS: No change since H&P - Vital Signs and I&O's Vital Signs: Temperature 98.2 F Pulse Rate [Right Brachial] 63 Pulse Rate 66 Respiratory Rate 20 Blood Pressure [Right Arm] 119/76 Blood Pressure [Left Arm] 116/76 Blood Pressure 130/64 O2 Sat by Pulse Oximetry 93 Intake and Output: Intake & Output 05/26/20 05/27/20 05/28/20 05/29/20 11:59 11:59 11:59 11:59 Intake Total 1341 / 1341 2475 / 2475 Balance 1341 / 1341 2475 / 2475 - Physical Exam Oriented: Not Oriented Eyes: Normal Ear: Normal Nose: Normal Throat: Normal Respiratory: Generalized, Diminished, Wheezes Cardiovascular: Normal : Normal Auscultation: Bowel Sounds: Normal Palpation: Normal Tenderness: Normal Skin: Normal Musculoskeletal: Normal Psychiatric: Normal Mood Description: Calm Affect: Normal Speech Pattern: Clear, Appropriate - Laboratory and Diagnostics Result Diagrams: 05/28/20 05:10 05/28/20 05:10 Labs: 05/27/20 17:30 Stool Stool Culture - Preliminary 05/27/20 17:30 Stool - Final 05/27/20 14:30 Blood Blood Culture - Preliminary 05/27/20 14:25 Blood Blood Culture - Preliminary Laboratory WBC 5.4 X10^3/uL (3.6-10.0) 05/28/20 05:10 RBC 4.29 X10^6/uL (3.5-5.4) 05/28/20 05:10 Hgb 11.6 g/dL (12.0-16.0) L 05/28/20 05:10 Hct 35.7 % (36.0-47.0) L 05/28/20 05:10 MCV 83.3 fL (80.0-100.0) 05/28/20 05:10 MCH 27.2 pg (27.0-34.0) 05/28/20 05:10 MCHC 32.6 g/dL (33.0-35.0) L 05/28/20 05:10 RDW 15.0 % (11.6-16.5) 05/28/20 05:10 Plt Count 123 X10^3/uL (150.0-450.0) L 05/28/20 05:10 MPV 10.8 fL (7.4-11.0) 05/28/20 05:10 Neut % (Auto) 45.5 % (42.0-75.0) 05/28/20 05:10 Lymph % (Auto) 43.3 % (21.0-51.0) 05/28/20 05:10 [place] % (Auto) 10.1 % (0.0-13.0) 05/28/20 05:10 Eos % (Auto) 0.8 % (0.9-2.9) L 05/28/20 05:10 Baso % (Auto) 0.3 % (0.2-1.0) 05/28/20 05:10 Neut # (Auto) 2.5 x10^3/uL (2.2-4.8) 05/28/20 05:10 Lymph # (Auto) 2.3 X10^3/uL (1.3-2.9) 05/28/20 05:10 [place] # (Auto) 0.5 x10^3/uL (0.3-0.8) 05/28/20 05:10 Eos # (Auto) 0.0 x10^3/uL (0.0-0.2) 05/28/20 05:10 Baso # (Auto) 0.0 X10^3/uL (0.0-0.1) 05/28/20 05:10 Absolute Nucleated RBC 0.1 /100WBC 05/28/20 05:10 Sample Site Left brachial 05/27/20 15:46 ABG pH 7.430 (7.35-7.45) 05/27/20 15:46 ABG pCO2 37.0 mmHg (35.0-45.0) 05/27/20 15:46 ABG pO2 68.0 mmHg (80.0-100.0) L 05/27/20 15:46 ABG HCO3 24.6 mmol/L (22-26) 05/27/20 15:46 ABG O2 Saturation 94.0 % (90-100) 05/27/20 15:46 ABG Base Excess 0.5 mmol/L (-2.0-2.0) 05/27/20 15:46 Kei Test Na 05/27/20 15:46 A-a Gradient 85.0 mmHg 05/27/20 15:46 FiO2 28.0 05/27/20 15:46 Blood Gas Comments Yue well aw 05/27/20 15:46 Sodium 136 mmol/L (136-145) 05/28/20 05:10 Corrected Sodium 138 mmol/L (136-145) 05/28/20 05:10 Potassium 4.2 mmol/L (3.5-5.1) 05/28/20 05:10 Chloride 103 mmol/L (98-107) 05/28/20 05:10 Carbon Dioxide 25.6 mmol/L (21-32) 05/28/20 05:10 BUN 22 mg/dL (7-18) H 05/28/20 05:10 Creatinine 0.85 mg/dL (0.55-1.02) 05/28/20 05:10 Est GFR (MDRD) Af Amer > 60 (>60) 05/28/20 05:10 Est GFR (MDRD) Non-Af > 60 (>60) 05/28/20 05:10 Glucose 179 mg/dL (65-99) H 05/28/20 05:10 Calcium 8.4 mg/dL (8.5-10.1) L 05/28/20 05:10 Corrected Calcium 9.8 mg/dL (8.5-10.1) 05/28/20 05:10 Ferritin 628 ng/mL (8-252) H 05/28/20 05:10 Total Bilirubin 0.30 mg/dL (0.2-1.0) 05/28/20 05:10 AST 76 Units/L (15-37) H 05/28/20 05:10 ALT 29 Units/L (12-78) 05/28/20 05:10 Alkaline Phosphatase 70 Units/L (46-116) 05/28/20 05:10 C-Reactive Protein 85.90 mg/L (0-3.0) H 05/28/20 05:10 Total Protein 6.5 g/dL (6.4-8.2) 05/28/20 05:10 Albumin 2.3 g/dL (3.4-5.0) L 05/28/20 05:10 Globulin 4.2 g/dL (2.5-4.5) 05/28/20 05:10 Albumin/Globulin Ratio 0.5 Ratio (1.1-2.1) L 05/28/20 05:10 Stool Description 15 g. soft/green 05/27/20 17:30 Stool Description 15 g. soft/green 05/27/20 17:30 Stl Occult Blood (IFOB) Negative (NEGATIVE) 05/27/20 17:30 Stool for White Cells Positive (NEGATIVE) A 05/27/20 17:30 Stl C. diff Tox B Gene Negative (NEGATIVE) 05/27/20 17:51 Stl C. diff [id number] Negative (NEGATIVE) 05/27/20 17:51 Cryptosporid parvum Ag Negative (NEGATIVE) 05/27/20 17:30 Giardia lamblia Ag Negative (NEGATIVE) 05/27/20 17:30 SARS-CoV-2 (PCR) Positive (NEGATIVE) A 05/27/20 11:09 - Plan (1) COVID-19 Status: Acute Plan: 1/2NS AT 75 ML/HR, REMDESIVIR 100 MG IV DAILY, HUMULIN R SLIDING SCALE, DUONEBS QID, PULMICORT BID, TUSSIONEX 5ML PO Q12H, LOVENOX 40MG SC HS, ROBITUSSIN DM 10ML PO QID, HUMULIN R SLIDING SCALE, LEVAQUIN 500MG IV DAILY, SOLU-MEDROL 40MG IV Q8H. (2) Multifocal pneumonia Status: Acute
[2020-05-29] MEDS: ZOLOFT PO SCH (09:57)
[2020-05-29] MEDS: XALATAN OP SCH (09:57)
[2020-05-29] MEDS: VSL#3 PO SCH (09:57)
[2020-05-29] MEDS: REMDESIVIR (INVESTIGATIONAL DRUG GS-5734) 100 MG in NS 250 ML IV 250 ML IV SCH (10:00)
[2020-05-29] MEDS ORDERED: NS 1/2 1000 ML IV 1,000 ML IV ONE (10:28)
[2020-05-29] MEDS: DUONEB 0.5 MG/3 MG (3 mL) NEB SCH ×3 (16:30→21:49)
[2020-05-29] MEDS: PULMICORT NEB TX 0.5 MG NEB SCH ×2 (16:45→21:49)
[2020-05-29] MEDS: SNACK - Diabetic Appropriate PO SCH (21:35)
[2020-05-29] MEDS: LOVENOX INJ 40 MG SYR SC SCH (21:49)
[2020-05-29] MEDS: ARICEPT TAB 10 MG PO SCH (21:49)
[2020-05-29] MEDS: LEVEMIR SC SCH (21:50)
[2020-05-29] MEDS: KLONOPIN TAB 0.5 MG PO SCH (21:50)
[2020-05-29] MEDS: ZOCOR TAB 40 MG PO SCH (21:55)
[2020-05-29] MEDS: TRICOR TAB 145 MG PO SCH (21:56)
[2020-05-29] MEDS: PriLOSEC PO SCH (21:57)
[2020-05-30 01:17] LABS: CKMB % 1.9 % (<4); CREATINE KINASE MB 3.5 ng/mL (0-4.0); TROPONIN I 0.02 ng/mL (0-1.5)
[2020-05-30] MEDS: BUTT CREAM (COMPOUND) TOP PRN (04:15)
[2020-05-30] MEDS ORDERED: NS 1/2 1000 ML IV 1,000 ML IV ONE ×2 (05:11→19:26)
[2020-05-30 05:37] LABS: BASOPHILS % (AUTO) 0.1 % (0.2-1.0); HEMATOCRIT 36.6 % (36.0-47.0); HEMOGLOBIN 11.9 g/dL (12.0-16.0); LYMPHOCYTES # (AUTO) 1.2 X10^3/uL (1.3-2.9); LYMPHOCYTES % (AUTO) 17.5 % (21.0-51.0); MEAN CORPUSCULAR HEMOGLOBIN 26.9 pg (27.0-34.0); MEAN CORPUSCULAR HGB CONC 32.5 g/dL (33.0-35.0); MEAN CORPUSCULAR VOLUME 82.7 fL (80.0-100.0); MEAN PLATELET VOLUME 10.2 fL (7.4-11.0); MONOCYTES # (AUTO) 0.4 x10^3/uL (0.3-0.8); MONOCYTES % (AUTO) 5.1 % (0.0-13.0); NEUTROPHILS # (AUTO) 5.5 x10^3/uL (2.2-4.8); NEUTROPHILS % (AUTO) 77.3 % (42.0-75.0); PLATELET COUNT 164 X10^3/uL (150.0-450.0); RED BLOOD COUNT 4.43 X10^6/uL (3.5-5.4); RED CELL DISTRIBUTION WIDTH 15.1 % (11.6-16.5); WHITE BLOOD COUNT 7.1 X10^3/uL (3.6-10.0)
[2020-05-30 05:39] LABS: ALANINE AMINOTRANSFERASE 12 Units/L (12-78); ALBUMIN 2.1 g/dL (3.4-5.0); ALKALINE PHOSPHATASE 75 Units/L (46-116); ASPARTATE AMINO TRANSFERASE 52 Units/L (15-37); BLOOD UREA NITROGEN 18 mg/dL (7-18); CALCIUM 8.4 mg/dL (8.5-10.1); CARBON DIOXIDE 27.3 mmol/L (21-32); CHLORIDE 104 mmol/L (98-107); COR CA(FOR HYPOALB) 9.9 mg/dL (8.5-10.1); COR NA(FOR HYPERGLY) 140 mmol/L (136-145); CREATININE 0.78 mg/dL (0.55-1.02); SODIUM 137 mmol/L (136-145); TOTAL PROTEIN 6.3 g/dL (6.4-8.2); eGFR NON BLACK RACES > 60 (>60)
[2020-05-30] MEDS: NEURONTIN TAB 600 MG PO SCH ×3 (05:44→21:19)
[2020-05-30] MEDS: SINEMET (PLAIN) 25/100 MG PO SCH ×3 (05:44→21:20)
[2020-05-30] MEDS: SOLU-Medrol 40 MG VIAL IVP SCH ×3 (05:45→21:17)
[2020-05-30] MEDS: HumuLIN R SUBCUT PRN ×4 (06:07→21:24)
[2020-05-30] MEDS: NS 1/2 1000 ML IV 1,000 ML IV SCH ×3 (06:08→21:16)
--- NOTE | 2020-05-30 07:00 | RAD ---
HISTORY:Shortness of breathStudy: Single view chestComparison:05/29/2020Findings:Single upright portable view submitted. Mildly worsening bilateral multifocal lung infiltrates.Cardiac and mediastinal contours are within normal limits .The soft tissues are intact .IMPRESSION:1. Mildly worsened multifocal lung infiltrates.Electronically signed by: JAD JONES (May 30, 2020 06:59:29)
[2020-05-30] MEDS: PULMICORT NEB TX 0.5 MG NEB SCH ×2 (09:06→21:16)
[2020-05-30] MEDS: DUONEB 0.5 MG/3 MG (3 mL) NEB SCH ×4 (09:06→21:15)
[2020-05-30] MEDS ORDERED: ZOLOFT PO ONE (09:48)
[2020-05-30] MEDS: HEMOCYTE-PLUS PO SCH (10:00)
[2020-05-30] MEDS: SYNTHROID 75 mcg TAB PO SCH (10:00)
[2020-05-30] MEDS: TAB-A-VITE PO SCH (10:00)
[2020-05-30] MEDS: REMDESIVIR (INVESTIGATIONAL DRUG GS-5734) 100 MG in NS 250 ML IV 250 ML IV SCH (10:00)
[2020-05-30] MEDS: FLONASE NASAL SPRAY ENOSTRIL SCH (10:00)
[2020-05-30] MEDS: ZOLOFT PO SCH (10:00)
[2020-05-30] MEDS: COLACE CAP 100 MG PO SCH ×2 (10:00→21:24)
[2020-05-30] MEDS: XALATAN OP SCH (10:00)
[2020-05-30] MEDS: TUSSIONEX PENNKINETIC SUSP PO SCH ×2 (10:00→21:17)
[2020-05-30] MEDS: LASIX PO SCH (10:00)
[2020-05-30] MEDS: ROBITUSSIN DM PO SCH ×4 (10:00→21:20)
[2020-05-30] MEDS: VSL#3 PO SCH (10:00)
[2020-05-30] MEDS: NAMENDA TAB 10 MG PO SCH (10:36)
[2020-05-30] MEDS: INDERAL TAB 10 MG PO SCH ×2 (11:00→21:24)
[2020-05-30] MEDS: PATIENT'S HOME MEDICATION PO SCH ×2 (11:00→21:21)
[2020-05-30] MEDS: PLAQUENIL PO SCH ×2 (11:00→21:21)
[2020-05-30] MEDS: CITRACAL + VITAMIN D PO SCH (11:51)
[2020-05-30] MEDS: LEVAQUIN PREMIX IV 500 MG 500 MG/100 ML BAG IV SCH (12:00)
[2020-05-30] MEDS: TOPROL XL PO SCH (12:05)
[2020-05-30] MEDS ORDERED: K-RIDER 10 MEQ/NS 100 ML 10 MEQ/100 ML BAG IV PRN (14:44)
[2020-05-30] MEDS ORDERED: POTASSIUM CHL 40 MEQ/NS 0.45% 500 ML IV PRN (14:44)
[2020-05-30] MEDS ORDERED: MICRO K EXTEN CAP 10 MEQ PO PRN (14:44)
[2020-05-30] MEDS ORDERED: POTASSIUM CHLORIDE LIQ 20 MEQ UDC PO PRN (14:44)
[2020-05-30] MEDS ORDERED: POTASSIUM CHL 60 MEQ/NS 0.45% 500 ML IV PRN (14:44)
[2020-05-30] MEDS ORDERED: KLOR-CON PO PRN (14:44)
[2020-05-30] MEDS ORDERED: K-DUR TAB 20 MEQ PO PRN (14:44)
[2020-05-30] MEDS: MAGNESIUM SULFATE 1 GRAM/100 mL PREMIX 1 GM/100 ML BAG IV PRN ×2 (18:32→21:25)
[2020-05-30] MEDS: ZOCOR TAB 40 MG PO SCH (21:17)
[2020-05-30] MEDS: PriLOSEC PO SCH (21:20)
[2020-05-30] MEDS: TRICOR TAB 145 MG PO SCH (21:20)
[2020-05-30] MEDS: LEVEMIR SC SCH (21:22)
[2020-05-30] MEDS: LOVENOX INJ 40 MG SYR SC SCH (21:23)
[2020-05-30] MEDS: ARICEPT TAB 10 MG PO SCH (21:23)
[2020-05-30] MEDS: KLONOPIN TAB 0.5 MG PO SCH (21:24)
[2020-05-30] MEDS: SNACK - Diabetic Appropriate PO SCH (21:26)
[2020-05-31] MEDS: SOLU-Medrol 40 MG VIAL IVP SCH (05:20)
[2020-05-31] MEDS: NS 1/2 1000 ML IV 1,000 ML IV SCH (05:20)
[2020-05-31 05:38] LABS: BASOPHILS % (AUTO) 0.2 % (0.2-1.0); HEMOGLOBIN 12.2 g/dL (12.0-16.0); LYMPHOCYTES # (AUTO) 1.5 X10^3/uL (1.3-2.9); LYMPHOCYTES % (AUTO) 17.5 % (21.0-51.0); MEAN CORPUSCULAR HEMOGLOBIN 27.1 pg (27.0-34.0); MEAN CORPUSCULAR VOLUME 82.2 fL (80.0-100.0); MEAN PLATELET VOLUME 10.9 fL (7.4-11.0); MONOCYTES # (AUTO) 0.4 x10^3/uL (0.3-0.8); MONOCYTES % (AUTO) 4.8 % (0.0-13.0); NEUTROPHILS # (AUTO) 6.8 x10^3/uL (2.2-4.8); NEUTROPHILS % (AUTO) 77.5 % (42.0-75.0); PLATELET COUNT 206 X10^3/uL (150.0-450.0); RED CELL DISTRIBUTION WIDTH 15.1 % (11.6-16.5); WHITE BLOOD COUNT 8.8 X10^3/uL (3.6-10.0)
[2020-05-31 05:52] LABS: ALANINE AMINOTRANSFERASE 22 Units/L (12-78); ALBUMIN 2.1 g/dL (3.4-5.0); ALKALINE PHOSPHATASE 89 Units/L (46-116); ASPARTATE AMINO TRANSFERASE 48 Units/L (15-37); BLOOD UREA NITROGEN 19 mg/dL (7-18); CALCIUM 8.6 mg/dL (8.5-10.1); CARBON DIOXIDE 29.8 mmol/L (21-32); CHLORIDE 104 mmol/L (98-107); COR CA(FOR HYPOALB) 10.1 mg/dL (8.5-10.1); COR NA(FOR HYPERGLY) 139 mmol/L (136-145); CREATININE 0.79 mg/dL (0.55-1.02); SODIUM 138 mmol/L (136-145); TOTAL PROTEIN 6.2 g/dL (6.4-8.2); eGFR NON BLACK RACES > 60 (>60)
[2020-05-31 06:07] LABS: BAND NEUTROPHILS % 2 % (0-10); PLATELET MORPHOLOGY COMMENT NORMAL (NORMAL)
[2020-05-31] MEDS: NEURONTIN TAB 600 MG PO SCH (06:57)
[2020-05-31] MEDS: SINEMET (PLAIN) 25/100 MG PO SCH (06:57)
--- NOTE | 2020-05-31 08:15 | RAD ---
HISTORYSOB, COVID +STUDYCHEST, 1 VIEWCOMPARISONChest film May 30, 2020.FINDINGSThe trachea is midline. The cardiac silhouette is unremarkable. The bilateral multifocal opacities show mild improvement when compared to May 30, 2020. Though this may be technical there does appear to be mild improved aeration especially in the right upper lung field. The bony thorax is unremarkable.IMPRESSIONPersistent bilateral opacities consistent with multifocal pneumonia but there may be mild improvement especially in the right mid and lower lung field compared to the prior day's film.Electronically signed by: DASH HSU (May 31, 2020 08:14:05)
[2020-05-31] MEDS ORDERED: ZOLOFT PO ONE (09:09)
[2020-05-31] MEDS: CITRACAL + VITAMIN D PO SCH (09:35)
[2020-05-31] MEDS: COLACE CAP 100 MG PO SCH (09:35)
[2020-05-31] MEDS: FLONASE NASAL SPRAY ENOSTRIL SCH (09:36)
[2020-05-31] MEDS: HEMOCYTE-PLUS PO SCH (09:36)
[2020-05-31] MEDS: LASIX PO SCH (09:36)
[2020-05-31] MEDS: LEVAQUIN PREMIX IV 500 MG 500 MG/100 ML BAG IV SCH (09:37)
[2020-05-31] MEDS: ZOLOFT PO SCH (09:37)
[2020-05-31] MEDS: VSL#3 PO SCH (09:38)
[2020-05-31] MEDS: NAMENDA TAB 10 MG PO SCH (09:38)
[2020-05-31] MEDS: TOPROL XL PO SCH (09:39)
[2020-05-31] MEDS: ROBITUSSIN DM PO SCH ×2 (09:40→13:42)
[2020-05-31] MEDS: SYNTHROID 75 mcg TAB PO SCH (09:40)
[2020-05-31] MEDS: TUSSIONEX PENNKINETIC SUSP PO SCH (09:41)
[2020-05-31] MEDS: XALATAN OP SCH (09:41)
[2020-05-31] MEDS: PATIENT'S HOME MEDICATION PO SCH (10:06)
[2020-05-31] MEDS: REMDESIVIR (INVESTIGATIONAL DRUG GS-5734) 100 MG in NS 250 ML IV 250 ML IV SCH (10:06)
[2020-05-31] MEDS: INDERAL TAB 10 MG PO SCH (10:07)
[2020-05-31] MEDS: TAB-A-VITE PO SCH (10:07)
[2020-05-31] MEDS: PLAQUENIL PO SCH (11:11)
[2020-05-31] MEDS: DUONEB 0.5 MG/3 MG (3 mL) NEB SCH (11:14)
[2020-05-31] MEDS: PULMICORT NEB TX 0.5 MG NEB SCH (11:15)
[2020-05-31] MEDS: HumuLIN R SUBCUT PRN (12:11)
[2020-05-31 12:46] VITALS: BP 148/65
== END 2020-05-31 13:56 | DRG 177 ==
LOC: OBS → OBSVTOIN 13:35 → MED/SURG 13:47
PROVIDERS: ADMIT Internal Medicine; ATTEND Internal Medicine
DX: R06.02 Shortness of breath; E03.8 Other specified hypothyroidism; J12.89 Other viral pneumonia; U07.1 COVID-19; R26.89 Other abnormalities of gait and mobility; J44.9 Chronic obstructive pulmonary disease, unspecified; I25.10 Atherosclerotic heart disease of native coronary artery without angina pectoris; I10 Essential (primary) hypertension; E78.2 Mixed hyperlipidemia; E11.65 Type 2 diabetes mellitus with hyperglycemia
CPT/HCPCS: 36415; 36600; 71010; 71045; 80053; 82270; 82550; 82553; 82728; 82803; 83630; 83735; 84484; 85025; 86140; 87040; 87045; 87328; 87329; 87427; 87449; 87493; 87635; 87899; 93005; 94640; 94760; 97163; A4222; J1650; J1815; J1956; J2920; J3262; J3475; J3490; J7050; J7620; J7626

== ENCOUNTER 2021-03-01 09:27 | Inpatient (IN) ==
[2021-03-01 09:45] VITALS: BMI 31.1
[2021-03-01] MEDS ORDERED: NS 1000 ML 1,000 ML IV ONE (09:56)
[2021-03-01] MEDS ORDERED: NS 1000 ML 1,000 ML ONE (10:11)
--- NOTE | 2021-03-01 10:21 | DR.AMS ---
HPI Time Seen Time Seen by Provider: 03/01/21 09:46 PCP Primary Care Physician: adolph HPI Comment HPI Comment: Patient sent from [place] for lethargy and AMS with low O2 sat. Patient seen here on Sunday for similar sx. Complaint Chief Complaint:: increased lethargy adn low o2 saturations Self Treatment fo Chief Complaint: o2 at 2 liters COVID-19 Coronavirus risk:travel/contact w/high risk person: No Has patient experienced Coronavirus symptoms: No Source History Provided: Longterm Mode of Arrival Mode of Arrival: Stretcher Timing Onset of Chief Complaint: 03/01/21 Symptom Onset: Unknown PMH PMH Past Medical History: Yes Past Medical History: Anemia, Anxiety, Arthritis, CHF, COPD, CVA, Dementia, Depression, Diabetes, Dyslipidemia, GERD, Hypertension, Hypothyroidism and Seizures Past Surgical History: Yes Surgical History: Unknown Family History History of Family Medical Conditions: No (unknown) Social History Does any household member use tobacco: No Alcohol Use: None Do you use any recreational Drugs:: No Lives With: Other Lives Where: Home Travel Risk Coronavirus risk:travel/contact w/high risk person: No Has patient experienced Coronavirus symptoms: No Infectious screening In the last 2 months have you had wt loss of >10#?: NO Have you had fever, night sweats or hemotysis?: No Have you traveled outside the country in the last 6 months?: No Isolation: Standard ROS Review of Systems Unable to Obtain Due To: Altered mental status PE Vitals Vital Signs: Temp Pulse Resp BP BP Pulse Ox 03/01/21 09:37 98.5 F 60 14 145/63 90 L 02/26/21 17:00 119/55 01/09/21 21:02 134/61 General Limitations: Altered Mental Status Head Head Exam: Normal Inspection, Atraumatic and Normocephalic Eyes Eye exam: Normal Appearance and EOMI Respiratory Respiratory Exam: Normal Lung Sounds Bilat Cardiovascular Cardiovascular Exam: Regular Rate, Normal Rhythm and Normal Heart Sounds Abdominal Exam Abdominal Exam: Normal Inspection, Normal Bowel Sounds and Soft COURSE Consultation Consultation Comments: Spoke with Dr. Meléndez who accepts patient for admission. ROR Labs Reviewed Laboratory Results Reviewed?: Yes Result Diagrams: 03/01/21 10:00 03/01/21 10:00 Laboratory: WBC 6.6 X10^3/uL (3.6-10.0) 03/01/21 10:00 RBC 4.11 X10^6/uL (3.5-5.4) 03/01/21 10:00 Hgb 11.3 g/dL (12.0-16.0) L 03/01/21 10:00 Hct 35.1 % (36.0-47.0) L 03/01/21 10:00 MCV 85.3 fL (80.0-100.0) 03/01/21 10:00 MCH 27.6 pg (27.0-34.0) 03/01/21 10:00 MCHC 32.3 g/dL (33.0-35.0) L 03/01/21 10:00 RDW 14.1 % (11.6-16.5) 03/01/21 10:00 Plt Count 242 X10^3/uL (150.0-450.0) 03/01/21 10:00 MPV 9.6 fL (7.4-11.0) 03/01/21 10:00 Neut % (Auto) 56.0 % (42.0-75.0) 03/01/21 10:00 Lymph % (Auto) 28.4 % (21.0-51.0) 03/01/21 10:00 [place] % (Auto) 11.3 % (0.0-13.0) 03/01/21 10:00 Eos % (Auto) 3.6 % (0.9-2.9) H 03/01/21 10:00 Baso % (Auto) 0.7 % (0.2-1.0) 03/01/21 10:00 Neut # (Auto) 3.7 x10^3/uL (2.2-4.8) 03/01/21 10:00 Lymph # (Auto) 1.9 X10^3/uL (1.3-2.9) 03/01/21 10:00 [place] # (Auto) 0.7 x10^3/uL (0.3-0.8) 03/01/21 10:00 Eos # (Auto) 0.2 x10^3/uL (0.0-0.2) 03/01/21 10:00 Baso # (Auto) 0.0 X10^3/uL (0.0-0.1) 03/01/21 10:00 Absolute Nucleated RBC 0.0 /100WBC 03/01/21 10:00 Sodium 142 mmol/L (136-145) 03/01/21 10:00 Corrected Sodium 147 mmol/L (136-145) H 03/01/21 10:00 Potassium 4.2 mmol/L (3.5-5.1) 03/01/21 10:00 Chloride 104 mmol/L (98-107) 03/01/21 10:00 Carbon Dioxide 28.9 mmol/L (21-32) 03/01/21 10:00 BUN 24 mg/dL (7-18) H 03/01/21 10:00 Creatinine 0.81 mg/dL (0.55-1.02) 03/01/21 10:00 Est GFR (MDRD) Af Amer > 60 (>60) 03/01/21 10:00 Est GFR (MDRD) Non-Af > 60 (>60) 03/01/21 10:00 Glucose 324 mg/dL (65-99) H 03/01/21 10:00 Lactic Acid 1.6 mmol/L (0.4-2.0) 03/01/21 10:00 Calcium 8.8 mg/dL (8.5-10.1) 03/01/21 10:00 Corrected Calcium 10.6 mg/dL (8.5-10.1) H 03/01/21 10:00 Total Bilirubin 0.50 mg/dL (0.2-1.0) 03/01/21 10:00 AST 45 Units/L (15-37) H 03/01/21 10:00 ALT 8 Units/L (12-78) L 03/01/21 10:00 Alkaline Phosphatase 131 Units/L (46-116) H 03/01/21 10:00 Total Protein 6.7 g/dL (6.4-8.2) 03/01/21 10:00 Albumin 1.7 g/dL (3.4-5.0) L 03/01/21 10:00 Globulin 5.0 g/dL (2.5-4.5) H 03/01/21 10:00 Albumin/Globulin Ratio 0.3 Ratio (1.1-2.1) L 03/01/21 10:00 Opioid Opioid Risk Tool Age (Luciano box if 16-45): No History of Preadolescent Sexual Abuse: No Total: 0 Total Score Risk Category: Low Risk Copyright: Jose A ARTHUR predicting aberrant behaviors Diagnosis Discharge Problem: Urinary tract infection, AMS (altered mental status)
[2021-03-01 10:22] LABS: BASOPHILS % (AUTO) 0.7 % (0.2-1.0); EOSINOPHILS # (AUTO) 0.2 x10^3/uL (0.0-0.2); EOSINOPHILS % (AUTO) 3.6 % (0.9-2.9); HEMATOCRIT 35.1 % (36.0-47.0); HEMOGLOBIN 11.3 g/dL (12.0-16.0); LYMPHOCYTES # (AUTO) 1.9 X10^3/uL (1.3-2.9); LYMPHOCYTES % (AUTO) 28.4 % (21.0-51.0); MEAN CORPUSCULAR HEMOGLOBIN 27.6 pg (27.0-34.0); MEAN CORPUSCULAR HGB CONC 32.3 g/dL (33.0-35.0); MEAN CORPUSCULAR VOLUME 85.3 fL (80.0-100.0); MEAN PLATELET VOLUME 9.6 fL (7.4-11.0); MONOCYTES # (AUTO) 0.7 x10^3/uL (0.3-0.8); MONOCYTES % (AUTO) 11.3 % (0.0-13.0); NEUTROPHILS # (AUTO) 3.7 x10^3/uL (2.2-4.8); PLATELET COUNT 242 X10^3/uL (150.0-450.0); RED BLOOD COUNT 4.11 X10^6/uL (3.5-5.4); RED CELL DISTRIBUTION WIDTH 14.1 % (11.6-16.5); WHITE BLOOD COUNT 6.6 X10^3/uL (3.6-10.0)
[2021-03-01 10:31] LABS: ALANINE AMINOTRANSFERASE 8 Units/L (12-78); ALBUMIN 1.7 g/dL (3.4-5.0); ALKALINE PHOSPHATASE 131 Units/L (46-116); ASPARTATE AMINO TRANSFERASE 45 Units/L (15-37); BLOOD UREA NITROGEN 24 mg/dL (7-18); CALCIUM 8.8 mg/dL (8.5-10.1); CARBON DIOXIDE 28.9 mmol/L (21-32); CHLORIDE 104 mmol/L (98-107); COR CA(FOR HYPOALB) 10.6 mg/dL (8.5-10.1); COR NA(FOR HYPERGLY) 147 mmol/L (136-145); CREATININE 0.81 mg/dL (0.55-1.02); SODIUM 142 mmol/L (136-145); TOTAL PROTEIN 6.7 g/dL (6.4-8.2); eGFR NON BLACK RACES > 60 (>60)
[2021-03-01 10:39] LABS: LACTIC ACID 1.6 mmol/L (0.4-2.0)
[2021-03-01] MEDS ORDERED: INVANZ INJ 1 GM VIAL ONE (11:07)
[2021-03-01] MEDS ORDERED: NS 50 ML IV + SPIKE MINIBAG* 50 ML IV ONE (11:08)
[2021-03-01] MEDS: INVANZ INJ 1 GM VIAL 1 GM in NS 100 ML IV + SPIKE MINIBAG* 100 ML IV SCH (11:15)
[2021-03-01] MEDS: NS 1000 ML 1,000 ML IV SCH (11:54)
[2021-03-01] MEDS ORDERED: PHARMACY CONSULT LTC MEDICATIONS XX SCH (13:00)
[2021-03-01] MEDS ORDERED: PULMICORT NEB TX 0.5 MG NEB ONE (19:25)
[2021-03-01] MEDS: PULMICORT NEB TX 0.5 MG NEB SCH (20:00)
[2021-03-01] MEDS: TYLENOL SUPP 650 MG PR PRN ×2 (20:30→21:19)
[2021-03-02] MEDS: NS 1000 ML 1,000 ML IV SCH ×2 (00:20→13:16)
[2021-03-02] MEDS: MORPHINE SULFATE INJ 2 MG INJ IVP PRN ×3 (02:12→16:32)
[2021-03-02 06:12] LABS: BASOPHILS % (AUTO) 0.5 % (0.2-1.0); EOSINOPHILS # (AUTO) 0.1 x10^3/uL (0.0-0.2); EOSINOPHILS % (AUTO) 1.6 % (0.9-2.9); HEMATOCRIT 34.9 % (36.0-47.0); HEMOGLOBIN 11.1 g/dL (12.0-16.0); LYMPHOCYTES # (AUTO) 1.8 X10^3/uL (1.3-2.9); MEAN CORPUSCULAR HEMOGLOBIN 27.4 pg (27.0-34.0); MEAN CORPUSCULAR HGB CONC 31.8 g/dL (33.0-35.0); MEAN PLATELET VOLUME 9.5 fL (7.4-11.0); MONOCYTES # (AUTO) 0.7 x10^3/uL (0.3-0.8); MONOCYTES % (AUTO) 9.8 % (0.0-13.0); NEUTROPHILS # (AUTO) 4.5 x10^3/uL (2.2-4.8); NEUTROPHILS % (AUTO) 63.1 % (42.0-75.0); PLATELET COUNT 283 X10^3/uL (150.0-450.0); RED BLOOD COUNT 4.06 X10^6/uL (3.5-5.4); RED CELL DISTRIBUTION WIDTH 14.1 % (11.6-16.5); WHITE BLOOD COUNT 7.1 X10^3/uL (3.6-10.0)
[2021-03-02 06:23] LABS: ALANINE AMINOTRANSFERASE 13 Units/L (12-78); ALBUMIN 1.6 g/dL (3.4-5.0); ALKALINE PHOSPHATASE 107 Units/L (46-116); ASPARTATE AMINO TRANSFERASE 57 Units/L (15-37); BLOOD UREA NITROGEN 21 mg/dL (7-18); CALCIUM 8.7 mg/dL (8.5-10.1); CARBON DIOXIDE 27.6 mmol/L (21-32); CHLORIDE 109 mmol/L (98-107); COR CA(FOR HYPOALB) 10.6 mg/dL (8.5-10.1); COR NA(FOR HYPERGLY) 151 mmol/L (136-145); CREATININE 0.79 mg/dL (0.55-1.02); SODIUM 146 mmol/L (136-145); TOTAL PROTEIN 6.4 g/dL (6.4-8.2); eGFR NON BLACK RACES > 60 (>60)
[2021-03-02] MEDS: PULMICORT NEB TX 0.5 MG NEB SCH ×2 (08:26→20:06)
[2021-03-02] MEDS: INVANZ INJ 1 GM VIAL 1 GM in NS 100 ML IV + SPIKE MINIBAG* 100 ML IV SCH (09:09)
[2021-03-02] MEDS: ALBUMIN HUMAN 25%- 100 ML 100 ML IV SCH (11:12)
[2021-03-02] MEDS ORDERED: ULTRAM PO PRN (11:27)
[2021-03-02] MEDS ORDERED: LASIX PO SCH (12:00)
[2021-03-02] MEDS ORDERED: ZOLOFT ONE (12:56)
--- NOTE | 2021-03-02 12:58 | RAD ---
HISTORYSOBSTUDYCHEST x-ray, 1 VIEWCOMPARISONX-ray 01/13/2021FINDINGSDiffuse interstitial and alveolar infiltrates. Lung infiltrates have worsened since prior study where only mild to moderate interstitial densities were seen. Possible CHF and pulmonary edema could contribute to the lung densities. No pneumothorax or pleural effusion is seen.IMPRESSIONCHF. Worsening lung infiltrates could be due to pulmonary edema but pneumonia is not excluded.Electronically signed by: Gamal Herrera (Mar 02, 2021 12:56:22)
[2021-03-02] MEDS: INDERAL TAB 10 MG PO SCH ×2 (13:11→22:27)
[2021-03-02] MEDS: ZOLOFT PO SCH ×2 (13:11→22:32)
[2021-03-02] MEDS: PROTONIX TAB 40 MG PO SCH ×2 (13:11→22:31)
[2021-03-02] MEDS: COLACE CAP 100 MG PO SCH ×2 (13:12→22:26)
[2021-03-02] MEDS: LASIX IVP SCH ×2 (13:12→22:00)
[2021-03-02] MEDS: SEROquel TAB 25 mg PO SCH ×2 (13:12→22:32)
[2021-03-02] MEDS: PEPCID TAB 40 MG PO SCH ×2 (13:12→22:31)
[2021-03-02] MEDS: FLONASE NASAL SPRAY ENOSTRIL SCH ×2 (13:13→22:27)
[2021-03-02] MEDS: HEMOCYTE-PLUS PO SCH (13:13)
[2021-03-02] MEDS: DEPAKOTE SPRINKLE PO SCH ×2 (13:14→22:26)
[2021-03-02] MEDS: CLARITIN PO SCH (13:14)
[2021-03-02] MEDS: XALATAN OP SCH (13:15)
--- NOTE | 2021-03-02 13:32 | DR.H&P ---
H&P - History & Physical for Day of: H&P Date: 03/01/21 - Chief Complaint Chief Complaint: LETHARGIC, DECREASED OXYGEN SATURATIONS, FEVER - History of Present Illness History of Present Illness: IS A 75 YEAR OLD PATIENT OF OURS. SHE IS A RESIDENT OF [facility]. SHE PRESENTED TODAY WITH STAFF REPORTING THAT PATIENT HAS BEEN LETHARGIC AND HAS HAD LOW OXYGEN SATURATIONS. THEY REPORT THAT HER SATURATIONS HAVE DROPPED INTO THE UPPER 80s WHILE ON OXYGEN VIA NASAL CANNULA AT 2 LITERS/MINUTE. STAFF REPORTS THAT SHE HAS ALSO HAD FEVER. THESE SYMPTOMS STARTED ON SUNDAY. SHE WAS SEEN IN THE ER ON 02/26/21 WHERE SHE WAS TREATED FOR A URINARY TRACT INFECTION. ABDOMINAL XRAY IN THE ER ALSO REVEALED BILATERAL PULMONARY INFILTRATES THAT APPEARED TO BE INCREASING. AT THAT TIME, SHE WAS GIVEN ROCEPHIN 1G IV X 1 DOSE AND WAS DISCHARGED BACK TO THE RESIDENTIAL ON AMOXICILLIN 875MG PO BID. SYMPTOMS HAVE APPARENTLY WORSENED SINCE THEN. STAFF REPORTS THAT PATIENT HAD ALTERED MENTAL STATUS AND WAS COMBATIVE INITIALLY, BUT HAS NOW BECAME LETHARGIC. PATIENT IS BED BOUND. HER PMH INCLUDES ANEMIA, ANXIETY, ARTHRITIS, CHF, COPD, CVA, DEMENTIA, DEPRESSION, DIABETES, DYSLIPIDEMIA, GERD, HTN, HYPOTHYROIDISM, AND SEIZURES. PATIENT AWAKENS AND MOANS TO PAINFUL STIMULI. ON ARRIVAL, VITALS WERE 98.5-60-14-90%NC-145/63. LABS WERE OBTAINED. ABNORMAL LAB VALUES INCLUDE THE FOLLOWING: HGB 11.3, HCT 35.1, BUN 24, GLUCOSE 324, AST 45, ALT 8, ALK PHOS 131, ALBUMIN 1.7, GLOBULIN 1.7. BLOOD CULTURES WERE SET UP. URINE CULTURE FROM 02/26/21 REVEALED GROWTH OF E.COLI. IT IS NOT SENSITIVE TO THE AMOXICILLIN THAT SHE HAD BEEN RECEIVING. COVID-19 WAS NEGATIVE. IN THE ER, SHE WAS GIVEN A NORMAL SALINE BOLUS. SHE WAS ADMITTED TO THE HOSPITAL FOR FURTHER EVALUATION AND TREATMENT ON PNEUMONIA, UTI, AND ALTERED MENTAL STATUS. SHE WAS STARTED ON NORMAL SALINE AT 80 ML/HR, INVANZ 1G IV DAILY, PULMICORT NEB TX, HUMULIN R SLIDING SCALE, AND HER HOME MEDICATIONS WERE RESUMED. OTHERWISE, WE PLAN TO FOLLOW UP WITH AM LABS, CHEST XRAY, AND CONTINUE TO MONITOR. TIME SPENT ON CLINICAL ASSESSMENT, REVIEWING LABS AND IMAGING, DECISION MAKING, AND DOCUMENTATION GREATER THAN 75 MINUTES. - Past Medical History Past Medical History: Hypertension, Dyslipidemia, Diabetes, Dementia, Depression, Anxiety, Hypothyroidism, Anemia, CVA, Seizures, COPD, GERD, Arthritis, CHF - Past Surgical History Surgical History: Unknown - Social History Does any household member use tobacco: No Alcohol Use: None Drug Use: None - Medications Home Medications: No Known Drug Allergies Allergy (Verified 03/01/21 09:35) CONTINUE taking the following medications divalproex [Depakote Sprinkles] 125 mg PO BID 03/01/21 [History] quetiapine 25 mg PO BID 03/01/21 [History] - Review of Systems Constitutional: Fever, Chills, Weakness ENT: No Symptoms Reported Respiratory: Shortness of Breath Cardiovascular: No Symptoms Reported Gastrointestinal: No Symptoms Reported Genitourinary: No Symptoms Reported Musculoskeletal: No Symptoms Reported Skin: No Symptoms Reported Neurological: See HPI, Weakness, Confusion - Physical Exam Vital Signs: Temperature 99.0 F Pulse Rate [Left] 76 Pulse Rate 61 Respiratory Rate 22 Blood Pressure [Right Arm] 124/58 Blood Pressure 145/63 O2 Sat by Pulse Oximetry 87 Oriented: Not Oriented Eyes: Normal Ear: Normal Nose: Normal Throat: Normal Respiratory: Diminished Throughout Cardiovascular: Normal : Normal Auscultation: Bowel Sounds: Normal Palpation: Normal Tenderness: Normal Skin: Normal Musculoskeletal: Normal Psychiatric: Normal Mood Description: Flat Affect: Flat, Normal Speech Pattern: Unclear, Inappropriate - Assessment/Plan (1) Multifocal pneumonia Status: Acute Plan: ADMIT, SUPPLEMENTAL OXYGEN, BLOOD AND SPUTUM CULUTRES, NORMAL SALINE AT 80 ML/HR, INVANZ 1G IV DAILY, PULMICORT NEB TX, HUMULIN R SLIDING SCALE, AND HER HOME MEDICATIONS WERE RESUMED. (2) E. coli UTI Status: Acute (3) AMS (altered mental status) Qualifiers: Altered mental status type: transient alteration of awareness Qualified Code(s): R40.4 - Transient alteration of awareness Status: Acute - Allergies Allergies/Adverse Reactions: Allergies Allergy/AdvReac Type Severity Reaction Status Date / Time No Known Drug Allergies Allergy Verified 03/01/21 09:35
[2021-03-02] MEDS: SINEMET (PLAIN) 25/100 MG PO SCH ×2 (15:00→22:33)
[2021-03-02] MEDS: NEURONTIN TAB 600 MG PO SCH ×2 (15:00→22:33)
[2021-03-02] MEDS: ROBITUSSIN DM PO SCH ×3 (16:09→22:32)
[2021-03-02] MEDS: HumuLIN R SUBCUT PRN (16:31)
[2021-03-02 18:38] LABS: BILIRUBIN,URINE NEGATIVE (NEGATIVE); BLOOD/HEMOGLOBIN,URINE 4+ (NEGATIVE); GLUCOSE, URINE 4+ (NEGATIVE); KETONES,URINE 2+ (NEGATIVE); LEUKOCYTE ESTERASE ,URINE 3+ (NEGATIVE); NITRITES,URINE NEGATIVE (NEGATIVE); PROTEIN,URINE 2+ (NEGATIVE); UROBILINOGEN,URINE 1+ (NORMAL)
[2021-03-02 18:45] LABS: APPEARANCE,URINE HAZY (CLEAR); COLOR,URINE YELLOW (YELLOW)
[2021-03-02 18:46] LABS: BACTERIA,URINE TRACE /HPF (NEGATIVE); SQUAMOUS EPITHELIAL CELL,UR MODERATE /HPF (NEGATIVE); YEAST,URINE MODERATE /HPF (NEGATIVE)
[2021-03-02] MEDS ORDERED: SNACK - Diabetic Appropriate PO SCH (20:00)
[2021-03-02] MEDS: SNACK - Diabetic Appropriate PO SCH (22:26)
[2021-03-02] MEDS: ARICEPT TAB 10 MG PO SCH (22:26)
[2021-03-02] MEDS: KLONOPIN TAB 0.5 MG PO SCH (22:27)
[2021-03-02] MEDS: LEVEMIR SC SCH (22:28)
[2021-03-02] MEDS: NAMENDA TAB 10 MG PO SCH (22:28)
[2021-03-02] MEDS: ZOCOR TAB 40 MG PO SCH (22:32)
[2021-03-02] MEDS: TRICOR TAB 145 MG PO SCH (22:32)
[2021-03-03] MEDS: NS 1000 ML 1,000 ML IV SCH (03:20)
[2021-03-03] MEDS: SINEMET (PLAIN) 25/100 MG PO SCH ×4 (05:04→21:19)
[2021-03-03] MEDS: NEURONTIN TAB 600 MG PO SCH ×4 (05:04→21:19)
[2021-03-03 06:11] LABS: BASOPHILS # (AUTO) 0.1 X10^3/uL (0.0-0.1); BASOPHILS % (AUTO) 0.6 % (0.2-1.0); EOSINOPHILS # (AUTO) 0.2 x10^3/uL (0.0-0.2); EOSINOPHILS % (AUTO) 2.4 % (0.9-2.9); HEMATOCRIT 34.1 % (36.0-47.0); LYMPHOCYTES # (AUTO) 1.9 X10^3/uL (1.3-2.9); LYMPHOCYTES % (AUTO) 23.1 % (21.0-51.0); MEAN CORPUSCULAR HEMOGLOBIN 27.6 pg (27.0-34.0); MEAN CORPUSCULAR HGB CONC 32.2 g/dL (33.0-35.0); MEAN CORPUSCULAR VOLUME 85.6 fL (80.0-100.0); MEAN PLATELET VOLUME 9.6 fL (7.4-11.0); MONOCYTES # (AUTO) 1.1 x10^3/uL (0.3-0.8); MONOCYTES % (AUTO) 12.8 % (0.0-13.0); NEUTROPHILS % (AUTO) 61.1 % (42.0-75.0); PLATELET COUNT 258 X10^3/uL (150.0-450.0); RED BLOOD COUNT 3.99 X10^6/uL (3.5-5.4); RED CELL DISTRIBUTION WIDTH 14.1 % (11.6-16.5); WHITE BLOOD COUNT 8.2 X10^3/uL (3.6-10.0)
--- NOTE | 2021-03-03 06:16 | RAD ---
HISTORYSOBSTUDYCHEST, 1 [id number]/21/2021.TECHNIQUEAP view of the chestFINDINGSThe cardiac and mediastinal contours appear stable. No significant change in diffuse bilateral airspace opacities. No definite pleural effusion or pneumothorax. Soft tissue attenuation limits evaluation.IMPRESSIONNo significant change.Electronically signed by: Paul Funes (Mar 03, 2021 06:14:02)
[2021-03-03 06:19] LABS: ALANINE AMINOTRANSFERASE 14 Units/L (12-78); ALKALINE PHOSPHATASE 95 Units/L (46-116); ASPARTATE AMINO TRANSFERASE 57 Units/L (15-37); BLOOD UREA NITROGEN 15 mg/dL (7-18); CALCIUM 8.7 mg/dL (8.5-10.1); CARBON DIOXIDE 30.6 mmol/L (21-32); CHLORIDE 109 mmol/L (98-107); COR CA(FOR HYPOALB) 10.3 mg/dL (8.5-10.1); COR NA(FOR HYPERGLY) 152 mmol/L (136-145); CREATININE 0.76 mg/dL (0.55-1.02); SODIUM 148 mmol/L (136-145); TOTAL PROTEIN 6.5 g/dL (6.4-8.2); eGFR NON BLACK RACES > 60 (>60)
[2021-03-03 07:22] LABS: ABG BASE EXCESS 8.4 mmol/L (-2.0-2.0)
[2021-03-03 07:23] LABS: ABG ALLEN TEST POS; ABG HCO3 33.4 mmol/L (22-26)
[2021-03-03] MEDS ORDERED: ZOLOFT ONE ×2 (08:57→20:48)
[2021-03-03] MEDS: PULMICORT NEB TX 0.5 MG NEB SCH ×2 (09:00→20:56)
[2021-03-03] MEDS: INVANZ INJ 1 GM VIAL 1 GM in NS 100 ML IV + SPIKE MINIBAG* 100 ML IV SCH (09:26)
[2021-03-03] MEDS: ALBUMIN HUMAN 25%- 100 ML 100 ML IV SCH (09:26)
[2021-03-03] MEDS: TAB-A-VITE PO SCH (09:26)
[2021-03-03] MEDS: INDERAL TAB 10 MG PO SCH ×3 (09:26→21:21)
[2021-03-03] MEDS: DEPAKOTE SPRINKLE PO SCH ×3 (09:27→21:20)
[2021-03-03] MEDS: ROBITUSSIN DM PO SCH ×4 (09:28→20:57)
[2021-03-03] MEDS: CLARITIN PO SCH (09:28)
[2021-03-03] MEDS: HEMOCYTE-PLUS PO SCH (09:28)
[2021-03-03] MEDS: CITRACAL + VITAMIN D PO SCH (09:29)
[2021-03-03] MEDS: PEPCID TAB 40 MG PO SCH ×3 (09:29→21:22)
[2021-03-03] MEDS: FLONASE NASAL SPRAY ENOSTRIL SCH ×2 (09:30→20:53)
[2021-03-03] MEDS: NAMENDA TAB 10 MG PO SCH ×3 (09:30→21:22)
[2021-03-03] MEDS: ZOLOFT PO SCH ×3 (09:30→21:24)
[2021-03-03] MEDS: XALATAN OP SCH (09:31)
[2021-03-03] MEDS: PROTONIX TAB 40 MG PO SCH ×3 (09:31→21:23)
[2021-03-03] MEDS: SEROquel TAB 25 mg PO SCH ×3 (09:31→21:24)
[2021-03-03] MEDS: COLACE CAP 100 MG PO SCH ×3 (09:31→21:20)
[2021-03-03] MEDS: LASIX IVP SCH ×2 (09:31→20:55)
[2021-03-03] MEDS ORDERED: LASIX IVP ONE (10:45)
[2021-03-03 11:03] LABS: LACTATE DEHYDROGENASE 468 Units/L (81-234)
[2021-03-03] MEDS: HumuLIN R SUBCUT PRN ×2 (13:08→17:56)
--- NOTE | 2021-03-03 13:41 | PCM.PROG ---
Progress Note - Progress Note for Day of Date of Exam: 03/02/21 - Subjective Subjective: IS BEING TREATED FOR PNEUMONIA, E.COLI UTI, AND ALTERED MENTAL STATUS. PATIENT HAS A PMH OF ANEMIA, ANXIETY, ARTHRITIS, CHF, COPD, CVA, DEMENTIA, DEPRESSION, DIABETES, DYSLIPIDEMIA, GERD, HTN, HYPOTHYROIDISM, AND SEIZURES. TODAY, SHE IS LYING IN BED WITH EYES CLOSED ON MORNING ROUNDS. SHE AWAKENS TO VERBAL STIMULI. SHE IS DISORIENTED AND DOES NOT ANSWER QUESTIONS APPROPRIATELY. SHE IS CURRENTLY UTILIZING NASAL CANNULA AT 2-3 LITERS/MINUTE. OXYGEN SATURATIONS HAVE BEEN 91-95%. ON EXAMINATION, HEART IS REGULAR IN RATE AND RHYTHM. BILATERAL LUNGS ARE NOTED WITH RHONCHI THROUGHOUT. ABDOMEN IS ROUND, SOFT, AND NON-TENDER WITH NORMAL BOWEL SOUNDS NOTED IN ALL QUADRANTS. THERE IS 1+ PITTING EDEMA NOTED TO HER LOWER EXTREMITIES. SHE HAS CONTINUED WITH FEVER THROUGHOUT THE NIGHT. HER VITALS THIS MORNING ARE: 99.5-71-18-91%-137/61. LABS WERE OBTAINED. ABNORMAL LAB VALUES INCLUDE THE FOLLOWING: HGB 11.1, HCT 34.9, SODIUM 146, CHLORIDE 109, BUN 21, GLUCOSE 297, AST 57, ALBUMIN 1.6, GLOBULIN 4.8. A REPEAT URINALYSIS WAS OBTAINED TODAY AND REVEALED: WBC TNTC, RBC 10-20, YEAST MODERATE, BACTERIA TRACE, LEUKOCYTES 3+, OCCULT BLOOD 4+, PROTEIN 2+, GLUCOSE 4+. A URINE CULTURE WAS REPEATED. BLOOD CULTURES ARE PENDING. A CHEST XRAY WAS OBTAINED AND REVEALED: CHF. Worsening lung infiltrates could be due to pulmonary edema but pneumonia is not excluded. SHE IS CURRENTLY RECEIVING NORMAL SALINE AT 80 ML/HR, INVANZ 1G IV DAILY, PULMICORT NEB TX, HUMULIN R SLIDING SCALE, AND HER HOME MEDICATIONS WERE RESUMED. TODAY WE WILL DECREASE IV FLUIDS TO KVO. WE WILL START DIFLUCAN 200MG IV DAILY AND LASIX 20MG IV Q12H. OTHERWISE, WE PLAN TO FOLLOW UP WITH AM LABS, CHEST XRAY, AND CONTINUE TO MONITOR. TIME SPENT ON CLINICAL ASSESSMENT, REVIEWING LABS AND IMAGING, DECISION MAKING, AND DOCUMENTATION GREATER THAN 45 MINUTES. - Past Medical Family Social History Past Med/Fam/Surg Hx: No changes since H&P Allergies: Allergies No Known Drug Allergies Allergy (Verified 03/01/21 09:35) - Review of Systems ROS: No change since H&P - Vital Signs and I&O's Vital Signs: Temperature 99.6 F Pulse Rate [Left] 64 Pulse Rate 64 Respiratory Rate 26 Blood Pressure [Right Arm] 134/60 Blood Pressure 145/63 O2 Sat by Pulse Oximetry 98 Intake and Output: Intake & Output 03/01/21 03/02/21 03/03/21 03/04/21 11:59 11:59 11:59 11:59 Intake Total 1390 / 1390 1340 / 1340 Output Total 1100 / 1100 Balance 1390 / 1390 240 / 240 - Physical Exam Oriented: Not Oriented Eyes: Normal Ear: Normal Nose: Normal Throat: Normal Respiratory: Generalized, Diminished, Rhonchi Cardiovascular: Edema (BLE 1+ PITTING EDEMA ) : Normal Auscultation: Bowel Sounds: Normal Palpation: Normal Tenderness: Normal Skin: Normal Musculoskeletal: Normal Psychiatric: Normal Mood Description: Flat Affect: Flat, Normal Speech Pattern: Clear, Inappropriate - Laboratory and Diagnostics Result Diagrams: 03/03/21 05:36 03/03/21 05:36 Labs: 03/01/21 20:27 Blood Blood Culture - Preliminary 03/01/21 20:17 Blood Blood Culture - Preliminary 03/01/21 10:06 Blood Blood Culture - Preliminary 03/01/21 10:00 Blood Blood Culture - Preliminary 03/02/21 18:05 Urine,[place] Urine Culture - Preliminary Laboratory WBC 8.2 X10^3/uL (3.6-10.0) 03/03/21 05:36 RBC 3.99 X10^6/uL (3.5-5.4) 03/03/21 05:36 Hgb 11.0 g/dL (12.0-16.0) L 03/03/21 05:36 Hct 34.1 % (36.0-47.0) L 03/03/21 05:36 MCV 85.6 fL (80.0-100.0) 03/03/21 05:36 MCH 27.6 pg (27.0-34.0) 03/03/21 05:36 MCHC 32.2 g/dL (33.0-35.0) L 03/03/21 05:36 RDW 14.1 % (11.6-16.5) 03/03/21 05:36 Plt Count 258 X10^3/uL (150.0-450.0) 03/03/21 05:36 MPV 9.6 fL (7.4-11.0) 03/03/21 05:36 Neut % (Auto) 61.1 % (42.0-75.0) 03/03/21 05:36 Lymph % (Auto) 23.1 % (21.0-51.0) 03/03/21 05:36 [place] % (Auto) 12.8 % (0.0-13.0) 03/03/21 05:36 Eos % (Auto) 2.4 % (0.9-2.9) 03/03/21 05:36 Baso % (Auto) 0.6 % (0.2-1.0) 03/03/21 05:36 Neut # (Auto) 5.0 x10^3/uL (2.2-4.8) H 03/03/21 05:36 Lymph # (Auto) 1.9 X10^3/uL (1.3-2.9) 03/03/21 05:36 [place] # (Auto) 1.1 x10^3/uL (0.3-0.8) H 03/03/21 05:36 Eos # (Auto) 0.2 x10^3/uL (0.0-0.2) 03/03/21 05:36 Baso # (Auto) 0.1 X10^3/uL (0.0-0.1) 03/03/21 05:36 Absolute Nucleated RBC 0.1 /100WBC 03/03/21 05:36 Sample Site Rr 03/03/21 07:10 ABG pH 7.460 (7.35-7.45) H 03/03/21 07:10 ABG pCO2 47.0 mmHg (35.0-45.0) H 03/03/21 07:10 ABG pO2 63.0 mmHg (80.0-100.0) L 03/03/21 07:10 ABG HCO3 33.4 mmol/L (22-26) H* 03/03/21 07:10 ABG O2 Saturation 93.0 % (90-100) 03/03/21 07:10 ABG Base Excess 8.4 mmol/L (-2.0-2.0) H 03/03/21 07:10 Kei Test Pos 03/03/21 07:10 A-a Gradient Not Reportable 03/03/21 07:10 FiO2 50.0 03/03/21 07:10 Blood Gas Comments Yue well, kh 03/03/21 07:10 Sodium 148 mmol/L (136-145) H 03/03/21 05:36 Corrected Sodium 152 mmol/L (136-145) H 03/03/21 05:36 Potassium 3.1 mmol/L (3.5-5.1) L 03/03/21 05:36 Chloride 109 mmol/L (98-107) H 03/03/21 05:36 Carbon Dioxide 30.6 mmol/L (21-32) 03/03/21 05:36 BUN 15 mg/dL (7-18) 03/03/21 05:36 Creatinine 0.76 mg/dL (0.55-1.02) 03/03/21 05:36 Est GFR (MDRD) Af Amer > 60 (>60) 03/03/21 05:36 Est GFR (MDRD) Non-Af > 60 (>60) 03/03/21 05:36 Glucose 252 mg/dL (65-99) H 03/03/21 05:36 POC Glucose (mg/dL) 258 mg/dL (65-99) H 03/03/21 12:36 Lactic Acid 1.6 mmol/L (0.4-2.0) 03/01/21 10:00 Calcium 8.7 mg/dL (8.5-10.1) 03/03/21 05:36 Corrected Calcium 10.3 mg/dL (8.5-10.1) H 03/03/21 05:36 Ferritin 580 ng/mL (8-252) H 03/03/21 05:36 Total Bilirubin 0.90 mg/dL (0.2-1.0) 03/03/21 05:36 AST 57 Units/L (15-37) H 03/03/21 05:36 ALT 14 Units/L (12-78) 03/03/21 05:36 Alkaline Phosphatase 95 Units/L (46-116) 03/03/21 05:36 Lactate Dehydrogenase 468 Units/L (81-234) H 03/03/21 05:36 C-Reactive Protein 239.20 mg/L (0-3.0) H 03/03/21 05:36 B-Natriuretic Peptide 1290 pg/mL (0-79) H* 03/03/21 05:36 Total Protein 6.5 g/dL (6.4-8.2) 03/03/21 05:36 Albumin 2.0 g/dL (3.4-5.0) L 03/03/21 05:36 Globulin 4.5 g/dL (2.5-4.5) 03/03/21 05:36 Albumin/Globulin Ratio 0.4 Ratio (1.1-2.1) L 03/03/21 05:36 Specimen Type Catherized urine 03/02/21 18:05 Urine Color Yellow (YELLOW) 03/02/21 18:05 Urine Appearance Hazy (CLEAR) 03/02/21 18:05 Urine pH 5.0 (5.0 - 8.0) 03/02/21 18:05 Ur Specific [place] 1.020 (1.000-1.030) 03/02/21 18:05 Urine Protein 2+ (NEGATIVE) 03/02/21 18:05 Urine Glucose (UA) 4+ (NEGATIVE) 03/02/21 18:05 Urine Ketones 2+ (NEGATIVE) 03/02/21 18:05 Urine Occult Blood 4+ (NEGATIVE) 03/02/21 18:05 Urine Nitrite Negative (NEGATIVE) 03/02/21 18:05 Urine Bilirubin Negative (NEGATIVE) 03/02/21 18:05 Urine Urobilinogen 1+ (NORMAL) 03/02/21 18:05 Ur Leukocyte Esterase 3+ (NEGATIVE) 03/02/21 18:05 Urine RBC 10-20 /HPF (0-3) A 03/02/21 18:05 Urine WBC Tntc /HPF (0-5) A 03/02/21 18:05 Ur Squamous Epith Cells Moderate /HPF (NEGATIVE) 03/02/21 18:05 Urine Bacteria Trace /HPF (NEGATIVE) 03/02/21 18:05 Urine Yeast Moderate /HPF (NEGATIVE) 03/02/21 18:05 Ur Culture Indicated? Yes/culture set up 03/02/21 18:05 - Plan (1) Multifocal pneumonia Status: Acute Plan: ADMIT, SUPPLEMENTAL OXYGEN, BLOOD AND SPUTUM CULUTRES, NORMAL SALINE AT 80 ML/HR, INVANZ 1G IV DAILY, LASIX 20MG IV Q12H, DIFLUCAN 200MG IV DAILY, PULMICORT NEB TX, HUMULIN R SLIDING SCALE, AND HER HOME MEDICATIONS WERE RESUMED. (2) E. coli UTI Status: Acute (3) AMS (altered mental status) Status: Acute Qualifiers: Altered mental status type: transient alteration of awareness Qualified Code(s): R40.4 - Transient alteration of awareness (4) CHF (congestive heart failure) Status: Chronic Qualifiers: Heart failure type: unspecified Heart failure chronicity: acute on chronic Qualified Code(s): I50.9 - Heart failure, unspecified
[2021-03-03] MEDS: SYNTHROID 88 mcg TAB PO SCH (16:03)
[2021-03-03] MEDS: LOVENOX INJ 40 MG SYR SC SCH (16:19)
[2021-03-03] MEDS: DIFLUCAN 200 MG IV PREMIX* 200 MG/100 ML BAG IV SCH (16:19)
[2021-03-03] MEDS: ARICEPT TAB 10 MG PO SCH ×2 (20:53→21:25)
[2021-03-03] MEDS: KLONOPIN TAB 0.5 MG PO SCH ×2 (20:54→21:25)
[2021-03-03] MEDS: TRICOR TAB 145 MG PO SCH ×2 (20:57→21:26)
[2021-03-03] MEDS: ZOCOR TAB 40 MG PO SCH ×2 (20:58→21:27)
[2021-03-03] MEDS: SNACK - Diabetic Appropriate PO SCH (21:17)
[2021-03-03] MEDS: LEVEMIR SC SCH (21:27)
[2021-03-04] MEDS: NEURONTIN TAB 600 MG PO SCH ×3 (05:44→22:10)
[2021-03-04] MEDS: SINEMET (PLAIN) 25/100 MG PO SCH ×3 (05:45→22:10)
[2021-03-04] MEDS: SYNTHROID 88 mcg TAB PO SCH (05:45)
[2021-03-04 06:22] LABS: BASOPHILS % (AUTO) 0.5 % (0.2-1.0); EOSINOPHILS # (AUTO) 0.2 x10^3/uL (0.0-0.2); EOSINOPHILS % (AUTO) 2.6 % (0.9-2.9); HEMATOCRIT 35.5 % (36.0-47.0); HEMOGLOBIN 11.1 g/dL (12.0-16.0); MEAN CORPUSCULAR HEMOGLOBIN 26.7 pg (27.0-34.0); MEAN CORPUSCULAR HGB CONC 31.3 g/dL (33.0-35.0); MEAN CORPUSCULAR VOLUME 85.5 fL (80.0-100.0); MEAN PLATELET VOLUME 9.6 fL (7.4-11.0); MONOCYTES % (AUTO) 11.8 % (0.0-13.0); NEUTROPHILS # (AUTO) 5.2 x10^3/uL (2.2-4.8); NEUTROPHILS % (AUTO) 61.1 % (42.0-75.0); PLATELET COUNT 263 X10^3/uL (150.0-450.0); RED BLOOD COUNT 4.15 X10^6/uL (3.5-5.4); RED CELL DISTRIBUTION WIDTH 13.6 % (11.6-16.5); WHITE BLOOD COUNT 8.5 X10^3/uL (3.6-10.0)
[2021-03-04 06:29] LABS: ALANINE AMINOTRANSFERASE 19 Units/L (12-78); ALBUMIN 2.4 g/dL (3.4-5.0); ALKALINE PHOSPHATASE 96 Units/L (46-116); ASPARTATE AMINO TRANSFERASE 79 Units/L (15-37); BLOOD UREA NITROGEN 16 mg/dL (7-18); CARBON DIOXIDE 32.3 mmol/L (21-32); CHLORIDE 108 mmol/L (98-107); COR CA(FOR HYPOALB) 10.3 mg/dL (8.5-10.1); COR NA(FOR HYPERGLY) 152 mmol/L (136-145); CREATININE 0.66 mg/dL (0.55-1.02); eGFR NON BLACK RACES > 60 (>60)
[2021-03-04 06:40] LABS: SODIUM 151 mmol/L (136-145)
--- NOTE | 2021-03-04 08:52 | PCM.PROG ---
Progress Note - Progress Note for Day of Date of Exam: 03/03/21 - Subjective Subjective: IS BEING TREATED FOR PNEUMONIA, E.COLI UTI, AND ALTERED MENTAL STATUS. PATIENT HAS A PMH OF ANEMIA, ANXIETY, ARTHRITIS, CHF, COPD, CVA, DEMENTIA, DEPRESSION, DIABETES, DYSLIPIDEMIA, GERD, HTN, HYPOTHYROIDISM, AND SEIZURES. TODAY, SHE IS LYING IN BED WITH EYES CLOSED ON MORNING ROUNDS. SHE AWAKENS TO VERBAL STIMULI. SHE IS DISORIENTED AND DOES NOT ANSWER QUESTIONS APPROPRIATELY. SHE IS CURRENTLY UTILIZING THE BIPAP WITH FI02 AT 50%. ON EXAMINATION, HEART IS REGULAR IN RATE AND RHYTHM. BILATERAL LUNGS ARE NOTED WITH RHONCHI THROUGHOUT. ABDOMEN IS ROUND, SOFT, AND NON-TENDER WITH NORMAL BOWEL SOUNDS NOTED IN ALL QUADRANTS. THERE IS 1+ PITTING EDEMA NOTED TO HER LOWER EXTREMITIES. SHE HAS CONTINUED WITH FEVER THROUGHOUT THE NIGHT. HER VITALS THIS MORNING ARE: 99.6-64-26-99%-134/60. LABS WERE OBTAINED. ABNORMAL LAB VALUES INCLUDE THE FOLLOWING: hgb 11.0, hct 34.1, sodium 148, potassium 3.1, chloride 109, glucose 252, ast 57, ferritin 580, ldh 468, crp 239.20, bnp 1290, albumin 2.0. URINE AND BLOOD CULTURES ARE PENDING. A CHEST XRAY WAS OBTAINED AND REVEALED: The cardiac and mediastinal contours appear stable. No significant change in diffuse bilateral airspace opacities. No definite pleural effusion or pneumothorax. Soft tissue attenuation limits evaluation. SHE IS CURRENTLY RECEIVING NORMAL SALINE AT 30 ML/HR, INVANZ 1G IV DAILY, PULMICORT NEB TX, DIFLUCAN 200MG IV DAILY, LASIX 20MG IV Q12H, HUMULIN R SLIDING SCALE, AND HER HOME MEDICATIONS WERE RESUMED. TODAY WE WILL DISCONTINUE IV FLUIDS, AND GIVE AN ADDITIONAL 20MG OF LASIX IV. OTHERWISE, WE PLAN TO FOLLOW UP WITH AM LABS, CHEST XRAY, AND CONTINUE TO MONITOR. TIME SPENT ON CLINICAL ASSESSMENT, REVIEWING LABS AND IMAGING, DECISION MAKING, AND DOCUMENTATION GREATER THAN 45 MINUTES. - Past Medical Family Social History Past Med/Fam/Surg Hx: No changes since H&P Allergies: Allergies No Known Drug Allergies Allergy (Verified 03/01/21 09:35) - Review of Systems ROS: No change since H&P - Vital Signs and I&O's Vital Signs: Temperature 100.9 F Pulse Rate [Left] 61 Pulse Rate 71 Respiratory Rate 21 Blood Pressure [Right Arm] 144/61 Blood Pressure 145/63 O2 Sat by Pulse Oximetry 99 Intake and Output: Intake & Output 03/01/21 03/02/21 03/03/21 03/04/21 11:59 11:59 11:59 11:59 Intake Total 1390 / 1390 1340 / 1340 749 / 749 Output Total 1100 / 1100 575 / 575 Balance 1390 / 1390 240 / 240 174 / 174 - Physical Exam Oriented: Not Oriented Eyes: Normal Ear: Normal Nose: Normal Throat: Normal Respiratory: Generalized, Diminished, Rhonchi Cardiovascular: Edema (BLE 1+ PITTING EDEMA ) : Normal Auscultation: Bowel Sounds: Normal Tenderness: Normal Skin: Normal Musculoskeletal: Normal Psychiatric: Normal Mood Description: Flat Affect: Flat, Normal Speech Pattern: Clear, Inappropriate - Laboratory and Diagnostics Result Diagrams: 03/04/21 05:30 03/04/21 05:30 Labs: 03/01/21 20:27 Blood Blood Culture - Preliminary 03/01/21 20:17 Blood Blood Culture - Preliminary 03/01/21 10:06 Blood Blood Culture - Preliminary 03/01/21 10:00 Blood Blood Culture - Preliminary 03/02/21 18:05 Urine,[place] Urine Culture - Preliminary Laboratory WBC 8.5 X10^3/uL (3.6-10.0) 03/04/21 05:30 RBC 4.15 X10^6/uL (3.5-5.4) 03/04/21 05:30 Hgb 11.1 g/dL (12.0-16.0) L 03/04/21 05:30 Hct 35.5 % (36.0-47.0) L 03/04/21 05:30 MCV 85.5 fL (80.0-100.0) 03/04/21 05:30 MCH 26.7 pg (27.0-34.0) L 03/04/21 05:30 MCHC 31.3 g/dL (33.0-35.0) L 03/04/21 05:30 RDW 13.6 % (11.6-16.5) 03/04/21 05:30 Plt Count 263 X10^3/uL (150.0-450.0) 03/04/21 05:30 MPV 9.6 fL (7.4-11.0) 03/04/21 05:30 Neut % (Auto) 61.1 % (42.0-75.0) 03/04/21 05:30 Lymph % (Auto) 24.0 % (21.0-51.0) 03/04/21 05:30 [place] % (Auto) 11.8 % (0.0-13.0) 03/04/21 05:30 Eos % (Auto) 2.6 % (0.9-2.9) 03/04/21 05:30 Baso % (Auto) 0.5 % (0.2-1.0) 03/04/21 05:30 Neut # (Auto) 5.2 x10^3/uL (2.2-4.8) H 03/04/21 05:30 Lymph # (Auto) 2.0 X10^3/uL (1.3-2.9) 03/04/21 05:30 [place] # (Auto) 1.0 x10^3/uL (0.3-0.8) H 03/04/21 05:30 Eos # (Auto) 0.2 x10^3/uL (0.0-0.2) 03/04/21 05:30 Baso # (Auto) 0.0 X10^3/uL (0.0-0.1) 03/04/21 05:30 Absolute Nucleated RBC 0.1 /100WBC 03/04/21 05:30 Sample Site Rr 03/03/21 07:10 ABG pH 7.460 (7.35-7.45) H 03/03/21 07:10 ABG pCO2 47.0 mmHg (35.0-45.0) H 03/03/21 07:10 ABG pO2 63.0 mmHg (80.0-100.0) L 03/03/21 07:10 ABG HCO3 33.4 mmol/L (22-26) H* 03/03/21 07:10 ABG O2 Saturation 93.0 % (90-100) 03/03/21 07:10 ABG Base Excess 8.4 mmol/L (-2.0-2.0) H 03/03/21 07:10 Kei Test Pos 03/03/21 07:10 A-a Gradient Not Reportable 03/03/21 07:10 FiO2 50.0 03/03/21 07:10 Blood Gas Comments Yue well, kh 03/03/21 07:10 Sodium 151 mmol/L (136-145) H* 03/04/21 05:30 Corrected Sodium 152 mmol/L (136-145) H 03/04/21 05:30 Potassium 2.8 mmol/L (3.5-5.1) L* 03/04/21 05:30 Chloride 108 mmol/L (98-107) H 03/04/21 05:30 Carbon Dioxide 32.3 mmol/L (21-32) H 03/04/21 05:30 BUN 16 mg/dL (7-18) 03/04/21 05:30 Creatinine 0.66 mg/dL (0.55-1.02) 03/04/21 05:30 Est GFR (MDRD) Af Amer > 60 (>60) 03/04/21 05:30 Est GFR (MDRD) Non-Af > 60 (>60) 03/04/21 05:30 Glucose 132 mg/dL (65-99) H 03/04/21 05:30 POC Glucose (mg/dL) 207 mg/dL (65-99) H 03/03/21 20:09 Lactic Acid 1.6 mmol/L (0.4-2.0) 03/01/21 10:00 Calcium 9.0 mg/dL (8.5-10.1) 03/04/21 05:30 Corrected Calcium 10.3 mg/dL (8.5-10.1) H 03/04/21 05:30 Ferritin 580 ng/mL (8-252) H 03/03/21 05:36 Total Bilirubin 1.20 mg/dL (0.2-1.0) H 03/04/21 05:30 AST 79 Units/L (15-37) H 03/04/21 05:30 ALT 19 Units/L (12-78) 03/04/21 05:30 Alkaline Phosphatase 96 Units/L (46-116) 03/04/21 05:30 Lactate Dehydrogenase 468 Units/L (81-234) H 03/03/21 05:36 C-Reactive Protein 239.20 mg/L (0-3.0) H 03/03/21 05:36 B-Natriuretic Peptide 1290 pg/mL (0-79) H* 03/03/21 05:36 Total Protein 6.0 g/dL (6.4-8.2) L 03/04/21 05:30 Albumin 2.4 g/dL (3.4-5.0) L 03/04/21 05:30 Globulin 3.6 g/dL (2.5-4.5) 03/04/21 05:30 Albumin/Globulin Ratio 0.7 Ratio (1.1-2.1) L 03/04/21 05:30 Specimen Type Catherized urine 03/02/21 18:05 Urine Color Yellow (YELLOW) 03/02/21 18:05 Urine Appearance Hazy (CLEAR) 03/02/21 18:05 Urine pH 5.0 (5.0 - 8.0) 03/02/21 18:05 Ur Specific [place] 1.020 (1.000-1.030) 03/02/21 18:05 Urine Protein 2+ (NEGATIVE) 03/02/21 18:05 Urine Glucose (UA) 4+ (NEGATIVE) 03/02/21 18:05 Urine Ketones 2+ (NEGATIVE) 03/02/21 18:05 Urine Occult Blood 4+ (NEGATIVE) 03/02/21 18:05 Urine Nitrite Negative (NEGATIVE) 03/02/21 18:05 Urine Bilirubin Negative (NEGATIVE) 03/02/21 18:05 Urine Urobilinogen 1+ (NORMAL) 03/02/21 18:05 Ur Leukocyte Esterase 3+ (NEGATIVE) 03/02/21 18:05 Urine RBC 10-20 /HPF (0-3) A 03/02/21 18:05 Urine WBC Tntc /HPF (0-5) A 03/02/21 18:05 Ur Squamous Epith Cells Moderate /HPF (NEGATIVE) 03/02/21 18:05 Urine Bacteria Trace /HPF (NEGATIVE) 03/02/21 18:05 Urine Yeast Moderate /HPF (NEGATIVE) 03/02/21 18:05 Ur Culture Indicated? Yes/culture set up 03/02/21 18:05 SARS-CoV-2 (PCR) Negative (NEGATIVE) 03/03/21 21:50 Influenza Type A (PCR) Negative (NEGATIVE) 03/03/21 21:50 Influenza Type B (PCR) Negative (NEGATIVE) 03/03/21 21:50 RSV (PCR) Negative (NEGATIVE) 03/03/21 21:50 - Plan (1) Multifocal pneumonia Status: Acute Plan: SUPPLEMENTAL OXYGEN, BLOOD AND SPUTUM CULUTRES, INVANZ 1G IV DAILY, LASIX 20MG IV Q12H, DIFLUCAN 200MG IV DAILY, PULMICORT NEB TX, HUMULIN R SLIDING SCALE, AND HER HOME MEDICATIONS WERE RESUMED. (2) E. coli UTI Status: Acute (3) AMS (altered mental status) Status: Acute Qualifiers: Altered mental status type: transient alteration of awareness Qualified Code(s): R40.4 - Transient alteration of awareness (4) CHF (congestive heart failure) Status: Chronic Qualifiers: Heart failure type: unspecified Heart failure chronicity: acute on chronic Qualified Code(s): I50.9 - Heart failure, unspecified
[2021-03-04] MEDS ORDERED: ZOLOFT ONE ×2 (09:24→20:30)
[2021-03-04] MEDS: PULMICORT NEB TX 0.5 MG NEB SCH ×2 (09:45→20:46)
[2021-03-04] MEDS ORDERED: POTASSIUM CHL 60 MEQ/NS 0.45% 500 ML IV PRN (09:53)
[2021-03-04] MEDS ORDERED: POTASSIUM CHL 40 MEQ/NS 0.45% 500 ML IV PRN (09:53)
[2021-03-04] MEDS ORDERED: KLOR-CON PO PRN (09:53)
[2021-03-04] MEDS ORDERED: POTASSIUM CHLORIDE LIQ 20 MEQ UDC PO PRN (09:53)
[2021-03-04] MEDS ORDERED: MICRO K EXTEN CAP 10 MEQ PO PRN (09:53)
[2021-03-04] MEDS ORDERED: K-DUR TAB 20 MEQ PO PRN (09:53)
[2021-03-04] MEDS ORDERED: D5W 1000 ML IV 1,000 ML IV SCH (10:00)
--- NOTE | 2021-03-04 10:08 | PCM.PROG ---
Progress Note - Progress Note for Day of Date of Exam: 03/04/21 - Subjective Subjective: IS BEING TREATED FOR CHF, PNEUMONIA, E.COLI UTI, AND ALTERED MENTAL STATUS. PATIENT HAS A PMH OF ANEMIA, ANXIETY, ARTHRITIS, CHF, COPD, CVA, DEMENTIA, DEPRESSION, DIABETES, DYSLIPIDEMIA, GERD, HTN, HYPOTHYROIDISM, AND SEIZURES. TODAY, SHE IS LYING IN BED WITH EYES CLOSED ON MORNING ROUNDS. SHE AWAKENS TO VERBAL STIMULI. SHE IS DISORIENTED AND DOES NOT ANSWER QUESTIONS APPROPRIATELY. SHE IS CURRENTLY UTILIZING THE BIPAP WITH FI02 AT 50%. HER OXYGEN SATURATIONS HAVE BEEN IN THE 90s. ON EXAMINATION, HEART IS REGULAR IN RATE AND RHYTHM. BILATERAL LUNGS ARE NOTED WITH RHONCHI THROUGHOUT. ABDOMEN IS ROUND, SOFT, AND NON-TENDER WITH NORMAL BOWEL SOUNDS NOTED IN ALL QUADRANTS. THERE IS 1+ PITTING EDEMA NOTED TO HER LOWER EXTREMITIES. SHE HAS CONTINUED WITH FEVER THROUGHOUT THE NIGHT. HER VITALS THIS MORNING ARE: 98.4-70-26-94%-117/57. LABS WERE OBTAINED. ABNORMAL LAB VALUES INCLUDE THE FOLLOWING: HGB 11.1, HCT 35.5, SODIUM 151, POTASSIUM 2.8, CHLORIDE 108, CARBON DIOXIDE 32.3, GLUCOSE 132, TOTAL BILI 1.20, AST 79, CRP 254.10, BNP 900, TOTAL PROTEIN 6.0, ALBUMIN 2.4. URINE AND BLOOD CULTURES ARE PENDING. A CHEST XRAY WAS OBTAINED AND REVEALED: The cardiac and mediastinal contours appear stable. No significant change in diffuse bilateral airspace opacities. No definite pleural effusion or pneumothorax. Soft tissue attenuation limits evaluation. SHE IS CURRENTLY RECEIVING INVANZ 1G IV DAILY, PULMICORT NEB TX, DIFLUCAN 200MG IV DAILY, LASIX 20MG IV Q12H, HUMULIN R SLIDING SCALE, AND HER HOME MEDICATIONS WERE RESUMED. TODAY, WE WILL ADD D5W AT 25 ML/HR. WE WILL OBTAIN AN ECHOCARDIOGRAM THIS MORNING. OTHERWISE, WE WILL CONTINUE WITH CURRENT PLAN OF CARE. WE PLAN TO FOLLOW UP WITH AM LABS, CHEST XRAY, AND CONTINUE TO MONITOR. TIME SPENT ON CLINICAL ASSESSMENT, REVIEWING LABS AND IMAGING, DECISION MAKING, AND DOCUMENTATION GREATER THAN 45 MINUTES. - Past Medical Family Social History Past Med/Fam/Surg Hx: No changes since H&P Allergies: Allergies No Known Drug Allergies Allergy (Verified 03/01/21 09:35) - Review of Systems ROS: No change since H&P - Vital Signs and I&O's Vital Signs: Temperature 98.4 F Pulse Rate [Left] 70 Pulse Rate 71 Respiratory Rate 26 Blood Pressure [Right Arm] 117/57 Blood Pressure 145/63 O2 Sat by Pulse Oximetry 94 Intake and Output: Intake & Output 03/01/21 03/02/21 03/03/21 03/04/21 11:59 11:59 11:59 11:59 Intake Total 1390 / 1390 1340 / 1340 749 / 749 Output Total 1100 / 1100 575 / 575 Balance 1390 / 1390 240 / 240 174 / 174 - Physical Exam Oriented: Not Oriented Eyes: Normal Ear: Normal Nose: Normal Throat: Normal Respiratory: Generalized, Diminished, Rhonchi Cardiovascular: Edema (BLE 1+ PITTING EDEMA ) : Normal Auscultation: Bowel Sounds: Normal Palpation: Normal Tenderness: Normal Skin: Normal Musculoskeletal: Normal Psychiatric: Normal Mood Description: Flat Affect: Flat, Normal Speech Pattern: Clear, Inappropriate - Laboratory and Diagnostics Result Diagrams: 03/04/21 05:30 03/04/21 05:30 Labs: 03/01/21 20:27 Blood Blood Culture - Preliminary 03/01/21 20:17 Blood Blood Culture - Preliminary 03/01/21 10:06 Blood Blood Culture - Preliminary 03/01/21 10:00 Blood Blood Culture - Preliminary 03/02/21 18:05 Urine,[place] Urine Culture - Preliminary Laboratory WBC 8.5 X10^3/uL (3.6-10.0) 03/04/21 05:30 RBC 4.15 X10^6/uL (3.5-5.4) 03/04/21 05:30 Hgb 11.1 g/dL (12.0-16.0) L 03/04/21 05:30 Hct 35.5 % (36.0-47.0) L 03/04/21 05:30 MCV 85.5 fL (80.0-100.0) 03/04/21 05:30 MCH 26.7 pg (27.0-34.0) L 03/04/21 05:30 MCHC 31.3 g/dL (33.0-35.0) L 03/04/21 05:30 RDW 13.6 % (11.6-16.5) 03/04/21 05:30 Plt Count 263 X10^3/uL (150.0-450.0) 03/04/21 05:30 MPV 9.6 fL (7.4-11.0) 03/04/21 05:30 Neut % (Auto) 61.1 % (42.0-75.0) 03/04/21 05:30 Lymph % (Auto) 24.0 % (21.0-51.0) 03/04/21 05:30 [place] % (Auto) 11.8 % (0.0-13.0) 03/04/21 05:30 Eos % (Auto) 2.6 % (0.9-2.9) 03/04/21 05:30 Baso % (Auto) 0.5 % (0.2-1.0) 03/04/21 05:30 Neut # (Auto) 5.2 x10^3/uL (2.2-4.8) H 03/04/21 05:30 Lymph # (Auto) 2.0 X10^3/uL (1.3-2.9) 03/04/21 05:30 [place] # (Auto) 1.0 x10^3/uL (0.3-0.8) H 03/04/21 05:30 Eos # (Auto) 0.2 x10^3/uL (0.0-0.2) 03/04/21 05:30 Baso # (Auto) 0.0 X10^3/uL (0.0-0.1) 03/04/21 05:30 Absolute Nucleated RBC 0.1 /100WBC 03/04/21 05:30 Sample Site Rr 03/03/21 07:10 ABG pH 7.460 (7.35-7.45) H 03/03/21 07:10 ABG pCO2 47.0 mmHg (35.0-45.0) H 03/03/21 07:10 ABG pO2 63.0 mmHg (80.0-100.0) L 03/03/21 07:10 ABG HCO3 33.4 mmol/L (22-26) H* 03/03/21 07:10 ABG O2 Saturation 93.0 % (90-100) 03/03/21 07:10 ABG Base Excess 8.4 mmol/L (-2.0-2.0) H 03/03/21 07:10 Kei Test Pos 03/03/21 07:10 A-a Gradient Not Reportable 03/03/21 07:10 FiO2 50.0 03/03/21 07:10 Blood Gas Comments Yue well, brunilda 03/03/21 07:10 Sodium 151 mmol/L (136-145) H* 03/04/21 05:30 Corrected Sodium 152 mmol/L (136-145) H 03/04/21 05:30 Potassium 2.8 mmol/L (3.5-5.1) L* 03/04/21 05:30 Chloride 108 mmol/L (98-107) H 03/04/21 05:30 Carbon Dioxide 32.3 mmol/L (21-32) H 03/04/21 05:30 BUN 16 mg/dL (7-18) 03/04/21 05:30 Creatinine 0.66 mg/dL (0.55-1.02) 03/04/21 05:30 Est GFR (MDRD) Af Amer > 60 (>60) 03/04/21 05:30 Est GFR (MDRD) Non-Af > 60 (>60) 03/04/21 05:30 Glucose 132 mg/dL (65-99) H 03/04/21 05:30 POC Glucose (mg/dL) 207 mg/dL (65-99) H 03/03/21 20:09 Lactic Acid 1.6 mmol/L (0.4-2.0) 03/01/21 10:00 Calcium 9.0 mg/dL (8.5-10.1) 03/04/21 05:30 Corrected Calcium 10.3 mg/dL (8.5-10.1) H 03/04/21 05:30 Ferritin 580 ng/mL (8-252) H 03/03/21 05:36 Total Bilirubin 1.20 mg/dL (0.2-1.0) H 03/04/21 05:30 AST 79 Units/L (15-37) H 03/04/21 05:30 ALT 19 Units/L (12-78) 03/04/21 05:30 Alkaline Phosphatase 96 Units/L (46-116) 03/04/21 05:30 Lactate Dehydrogenase 468 Units/L (81-234) H 03/03/21 05:36 C-Reactive Protein 254.10 mg/L (0-3.0) H 03/04/21 05:30 B-Natriuretic Peptide 900 pg/mL (0-79) H* 03/04/21 05:30 Total Protein 6.0 g/dL (6.4-8.2) L 03/04/21 05:30 Albumin 2.4 g/dL (3.4-5.0) L 03/04/21 05:30 Globulin 3.6 g/dL (2.5-4.5) 03/04/21 05:30 Albumin/Globulin Ratio 0.7 Ratio (1.1-2.1) L 03/04/21 05:30 Specimen Type Catherized urine 03/02/21 18:05 Urine Color Yellow (YELLOW) 03/02/21 18:05 Urine Appearance Hazy (CLEAR) 03/02/21 18:05 Urine pH 5.0 (5.0 - 8.0) 03/02/21 18:05 Ur Specific [place] 1.020 (1.000-1.030) 03/02/21 18:05 Urine Protein 2+ (NEGATIVE) 03/02/21 18:05 Urine Glucose (UA) 4+ (NEGATIVE) 03/02/21 18:05 Urine Ketones 2+ (NEGATIVE) 03/02/21 18:05 Urine Occult Blood 4+ (NEGATIVE) 03/02/21 18:05 Urine Nitrite Negative (NEGATIVE) 03/02/21 18:05 Urine Bilirubin Negative (NEGATIVE) 03/02/21 18:05 Urine Urobilinogen 1+ (NORMAL) 03/02/21 18:05 Ur Leukocyte Esterase 3+ (NEGATIVE) 03/02/21 18:05 Urine RBC 10-20 /HPF (0-3) A 03/02/21 18:05 Urine WBC Tntc /HPF (0-5) A 03/02/21 18:05 Ur Squamous Epith Cells Moderate /HPF (NEGATIVE) 03/02/21 18:05 Urine Bacteria Trace /HPF (NEGATIVE) 03/02/21 18:05 Urine Yeast Moderate /HPF (NEGATIVE) 03/02/21 18:05 Ur Culture Indicated? Yes/culture set up 03/02/21 18:05 SARS-CoV-2 (PCR) Negative (NEGATIVE) 03/03/21 21:50 Influenza Type A (PCR) Negative (NEGATIVE) 03/03/21 21:50 Influenza Type B (PCR) Negative (NEGATIVE) 03/03/21 21:50 RSV (PCR) Negative (NEGATIVE) 03/03/21 21:50 - Plan (1) Multifocal pneumonia Status: Acute Plan: SUPPLEMENTAL OXYGEN, BLOOD AND SPUTUM CULUTRES, D5W AT 25 ML/HR, INVANZ 1G IV DAILY, LASIX 20MG IV Q12H, DIFLUCAN 200MG IV DAILY, PULMICORT NEB [place], HUMULIN R SLIDING SCALE, AND HER HOME MEDICATIONS WERE RESUMED. (2) E. coli UTI Status: Acute (3) AMS (altered mental status) Status: Acute Qualifiers: Altered mental status type: transient alteration of awareness Qualified Code(s): R40.4 - Transient alteration of awareness (4) CHF (congestive heart failure) Status: Chronic Qualifiers: Heart failure type: unspecified Heart failure chronicity: acute on chronic Qualified Code(s): I50.9 - Heart failure, unspecified
[2021-03-04] MEDS: INVANZ INJ 1 GM VIAL 1 GM in NS 100 ML IV + SPIKE MINIBAG* 100 ML IV SCH (10:21)
[2021-03-04] MEDS: DIFLUCAN 200 MG IV PREMIX* 200 MG/100 ML BAG IV SCH (10:22)
[2021-03-04] MEDS: LASIX IVP SCH (10:23)
[2021-03-04] MEDS: DEPAKOTE SPRINKLE PO SCH ×2 (10:23→21:27)
[2021-03-04] MEDS: ZOLOFT PO SCH ×2 (10:24→21:38)
[2021-03-04] MEDS: ROBITUSSIN DM PO SCH ×3 (10:24→17:11)
[2021-03-04] MEDS: TAB-A-VITE PO SCH (10:24)
[2021-03-04] MEDS: SEROquel TAB 25 mg PO SCH ×2 (10:25→21:30)
[2021-03-04] MEDS: HEMOCYTE-PLUS PO SCH (10:25)
[2021-03-04] MEDS: PEPCID TAB 40 MG PO SCH ×2 (10:26→21:15)
[2021-03-04] MEDS: NAMENDA TAB 10 MG PO SCH ×2 (10:26→21:10)
[2021-03-04] MEDS: LOVENOX INJ 40 MG SYR SC SCH (10:26)
[2021-03-04] MEDS: PROTONIX TAB 40 MG PO SCH ×2 (10:27→21:15)
[2021-03-04] MEDS: COLACE CAP 100 MG PO SCH ×2 (10:28→22:10)
[2021-03-04] MEDS: INDERAL TAB 10 MG PO SCH ×2 (10:28→21:39)
[2021-03-04] MEDS: CITRACAL + VITAMIN D PO SCH (10:28)
[2021-03-04] MEDS: CLARITIN PO SCH (10:29)
[2021-03-04] MEDS: FLONASE NASAL SPRAY ENOSTRIL SCH ×2 (10:29→21:31)
[2021-03-04] MEDS: ALBUMIN HUMAN 25%- 100 ML 100 ML IV SCH (10:29)
[2021-03-04] MEDS: XALATAN OP SCH (10:30)
[2021-03-04] MEDS: HumuLIN R SUBCUT PRN (12:34)
[2021-03-04] MEDS: MORPHINE SULFATE INJ 2 MG INJ IVP PRN ×2 (14:17→21:20)
[2021-03-04] MEDS: SNACK - Diabetic Appropriate PO SCH (20:28)
[2021-03-04] MEDS: ZOCOR TAB 40 MG PO SCH (21:10)
[2021-03-04] MEDS: LEVEMIR SC SCH (21:15)
[2021-03-04] MEDS: TRICOR TAB 145 MG PO SCH (21:15)
[2021-03-04] MEDS: ARICEPT TAB 10 MG PO SCH (21:30)
[2021-03-04] MEDS: KLONOPIN TAB 0.5 MG PO SCH (21:37)
[2021-03-04] MEDS ORDERED: PROCALAMINE 3 % 1,000 ML IV SCH (23:00)
[2021-03-05] MEDS: ROBITUSSIN DM PO SCH ×3 (02:35→14:32)
[2021-03-05] MEDS: LASIX IVP SCH ×4 (05:59→21:10)
[2021-03-05] MEDS: NEURONTIN TAB 600 MG PO SCH (06:00)
[2021-03-05] MEDS: SINEMET (PLAIN) 25/100 MG PO SCH (06:00)
[2021-03-05] MEDS: SYNTHROID 88 mcg TAB PO SCH (06:01)
[2021-03-05 06:11] LABS: BASOPHILS % (AUTO) 0.6 % (0.2-1.0); EOSINOPHILS # (AUTO) 0.3 x10^3/uL (0.0-0.2); EOSINOPHILS % (AUTO) 4.7 % (0.9-2.9); HEMATOCRIT 30.2 % (36.0-47.0); HEMOGLOBIN 9.5 g/dL (12.0-16.0); LYMPHOCYTES # (AUTO) 1.5 X10^3/uL (1.3-2.9); MEAN CORPUSCULAR HEMOGLOBIN 26.8 pg (27.0-34.0); MEAN CORPUSCULAR HGB CONC 31.5 g/dL (33.0-35.0); MEAN CORPUSCULAR VOLUME 85.2 fL (80.0-100.0); MEAN PLATELET VOLUME 9.2 fL (7.4-11.0); MONOCYTES # (AUTO) 0.6 x10^3/uL (0.3-0.8); MONOCYTES % (AUTO) 7.6 % (0.0-13.0); NEUTROPHILS # (AUTO) 4.9 x10^3/uL (2.2-4.8); NEUTROPHILS % (AUTO) 66.1 % (42.0-75.0); PLATELET COUNT 317 X10^3/uL (150.0-450.0); RED BLOOD COUNT 3.55 X10^6/uL (3.5-5.4); RED CELL DISTRIBUTION WIDTH 13.9 % (11.6-16.5); WHITE BLOOD COUNT 7.3 X10^3/uL (3.6-10.0)
[2021-03-05 06:26] LABS: ALANINE AMINOTRANSFERASE 19 Units/L (12-78); ALBUMIN 2.3 g/dL (3.4-5.0); ALKALINE PHOSPHATASE 87 Units/L (46-116); ASPARTATE AMINO TRANSFERASE 68 Units/L (15-37); BLOOD UREA NITROGEN 23 mg/dL (7-18); CALCIUM 9.1 mg/dL (8.5-10.1); CARBON DIOXIDE 36.9 mmol/L (21-32); CHLORIDE 107 mmol/L (98-107); COR CA(FOR HYPOALB) 10.5 mg/dL (8.5-10.1); COR NA(FOR HYPERGLY) 153 mmol/L (136-145); CREATININE 0.73 mg/dL (0.55-1.02); SODIUM 149 mmol/L (136-145); TOTAL PROTEIN 6.5 g/dL (6.4-8.2); eGFR NON BLACK RACES > 60 (>60)
[2021-03-05] MEDS ORDERED: ZOLOFT ONE (08:03)
[2021-03-05] MEDS: PULMICORT NEB TX 0.5 MG NEB SCH ×2 (08:25→21:04)
[2021-03-05] MEDS: DIFLUCAN 200 MG IV PREMIX* 200 MG/100 ML BAG IV SCH (08:54)
[2021-03-05] MEDS: INVANZ INJ 1 GM VIAL 1 GM in NS 100 ML IV + SPIKE MINIBAG* 100 ML IV SCH (09:58)
[2021-03-05] MEDS: PEPCID TAB 40 MG PO SCH (10:00)
[2021-03-05] MEDS: HEMOCYTE-PLUS PO SCH (10:00)
[2021-03-05] MEDS: DEPAKOTE SPRINKLE PO SCH (10:00)
[2021-03-05] MEDS: PROTONIX TAB 40 MG PO SCH (10:00)
[2021-03-05] MEDS: NAMENDA TAB 10 MG PO SCH (10:00)
[2021-03-05] MEDS: CLARITIN PO SCH (10:00)
[2021-03-05] MEDS: CITRACAL + VITAMIN D PO SCH (10:00)
[2021-03-05] MEDS: TAB-A-VITE PO SCH (10:02)
[2021-03-05] MEDS: COLACE CAP 100 MG PO SCH (10:02)
[2021-03-05] MEDS: INDERAL TAB 10 MG PO SCH (10:02)
[2021-03-05] MEDS: ZOLOFT PO SCH (10:03)
[2021-03-05] MEDS: SEROquel TAB 25 mg PO SCH (10:03)
[2021-03-05] MEDS: LOVENOX INJ 40 MG SYR SC SCH (10:04)
[2021-03-05] MEDS: XALATAN OP SCH (10:08)
[2021-03-05] MEDS: FLONASE NASAL SPRAY ENOSTRIL SCH ×2 (10:08→21:09)
[2021-03-05] MEDS: MORPHINE SULFATE INJ 2 MG INJ IVP PRN ×4 (10:32→23:47)
[2021-03-05] MEDS: ALBUMIN HUMAN 25%- 100 ML 100 ML IV SCH (11:33)
[2021-03-05] MEDS ORDERED: ATIVAN INJ 2 MG VIAL IVP PRN (14:07)
[2021-03-05] MEDS: K-RIDER 10 MEQ/NS 100 ML 10 MEQ/100 ML BAG IV PRN ×6 (14:36→23:05)
[2021-03-05] MEDS: VASOTEC INJ 2.5 MG VIAL IVP SCH ×2 (14:40→21:10)
[2021-03-05] MEDS: PEPCID 20 MG IV PREMIX* 20 MG/50 ML BAG IV SCH (21:10)
[2021-03-05] MEDS: LEVEMIR SC SCH (21:10)
[2021-03-06] MEDS: VASOTEC INJ 2.5 MG VIAL IVP SCH (03:48)
[2021-03-06] MEDS: TYLENOL SUPP 650 MG PR PRN (04:08)
[2021-03-06] MEDS: MORPHINE SULFATE INJ 2 MG INJ IVP PRN ×3 (05:09→10:48)
[2021-03-06 05:14] LABS: BASOPHILS % (AUTO) 0.6 % (0.2-1.0); EOSINOPHILS # (AUTO) 0.4 x10^3/uL (0.0-0.2); EOSINOPHILS % (AUTO) 5.1 % (0.9-2.9); HEMATOCRIT 29.8 % (36.0-47.0); HEMOGLOBIN 9.3 g/dL (12.0-16.0); LYMPHOCYTES # (AUTO) 1.7 X10^3/uL (1.3-2.9); LYMPHOCYTES % (AUTO) 20.9 % (21.0-51.0); MEAN CORPUSCULAR HEMOGLOBIN 26.9 pg (27.0-34.0); MEAN CORPUSCULAR HGB CONC 31.4 g/dL (33.0-35.0); MEAN CORPUSCULAR VOLUME 85.8 fL (80.0-100.0); MEAN PLATELET VOLUME 9.6 fL (7.4-11.0); MONOCYTES # (AUTO) 0.7 x10^3/uL (0.3-0.8); MONOCYTES % (AUTO) 8.6 % (0.0-13.0); NEUTROPHILS # (AUTO) 5.1 x10^3/uL (2.2-4.8); NEUTROPHILS % (AUTO) 64.8 % (42.0-75.0); PLATELET COUNT 306 X10^3/uL (150.0-450.0); RED BLOOD COUNT 3.47 X10^6/uL (3.5-5.4); RED CELL DISTRIBUTION WIDTH 14.1 % (11.6-16.5); WHITE BLOOD COUNT 7.9 X10^3/uL (3.6-10.0)
[2021-03-06 05:28] LABS: ALANINE AMINOTRANSFERASE 18 Units/L (12-78); ALBUMIN 2.5 g/dL (3.4-5.0); ALKALINE PHOSPHATASE 86 Units/L (46-116); ASPARTATE AMINO TRANSFERASE 64 Units/L (15-37); BLOOD UREA NITROGEN 25 mg/dL (7-18); CALCIUM 9.1 mg/dL (8.5-10.1); CARBON DIOXIDE 33.5 mmol/L (21-32); CHLORIDE 108 mmol/L (98-107); COR CA(FOR HYPOALB) 10.3 mg/dL (8.5-10.1); COR NA(FOR HYPERGLY) 152 mmol/L (136-145); CREATININE 0.69 mg/dL (0.55-1.02); SODIUM 149 mmol/L (136-145); TOTAL PROTEIN 6.3 g/dL (6.4-8.2); eGFR NON BLACK RACES > 60 (>60)
[2021-03-06] MEDS: K-RIDER 10 MEQ/NS 100 ML 10 MEQ/100 ML BAG IV PRN ×2 (06:02→07:18)
[2021-03-06] MEDS: DIFLUCAN 200 MG IV PREMIX* 200 MG/100 ML BAG IV SCH (08:32)
[2021-03-06] MEDS: PULMICORT NEB TX 0.5 MG NEB SCH (08:34)
[2021-03-06] MEDS: INVANZ INJ 1 GM VIAL 1 GM in NS 100 ML IV + SPIKE MINIBAG* 100 ML IV SCH (09:50)
[2021-03-06] MEDS: FLONASE NASAL SPRAY ENOSTRIL SCH (10:00)
[2021-03-06] MEDS: LOVENOX INJ 40 MG SYR SC SCH (10:00)
[2021-03-06] MEDS: XALATAN OP SCH (10:00)
[2021-03-06] MEDS ORDERED: MORPHINE SULFATE INJ 2 MG INJ IVP ONE (12:09)
[2021-03-06] MEDS ORDERED: MORPHINE SULFATE INJ 2 MG INJ IVP PRN (12:11)
[2021-03-06] MEDS ORDERED: MORPHINE SULFATE INJ 2 MG INJ ONE (12:13)
[2021-03-06] MEDS: ALBUMIN HUMAN 25%- 100 ML 100 ML IV SCH (12:50)
[2021-03-06] MEDS: PEPCID 20 MG IV PREMIX* 20 MG/50 ML BAG IV SCH (12:51)
[2021-03-06 12:55] VITALS: BP 149/66
[2021-03-06] MEDS ORDERED: VASOTEC INJ 2.5 MG VIAL IVP SCH (13:00)
[2021-03-06] MEDS ORDERED: LASIX IVP SCH (14:00)
== END 2021-03-06 13:29 | disposition expired | DRG 194 ==
LOC: MED/SURG 09:27 → ER 09:27 → OBSVTOIN 10:52 → MED/SURG 11:37
PROVIDERS: ADMIT Internal Medicine; ATTEND Internal Medicine
DX: R26.2 Difficulty in walking, not elsewhere classified; I10 Essential (primary) hypertension; N39.0 Urinary tract infection, site not specified; E11.9 Type 2 diabetes mellitus without complications; R40.4 Transient alteration of awareness; I50.9 Heart failure, unspecified; J44.9 Chronic obstructive pulmonary disease, unspecified; Z74.01 Bed confinement status; Z86.73 Personal history of transient ischemic attack (TIA), and cerebral infarction without residual deficits; J18.8 Other pneumonia, unspecified organism; Z20.822 Contact with and (suspected) exposure to COVID-19